=== PATIENT | male | born 1960 | race Caucasian/White ===

== ENCOUNTER 2018-04-30 18:58 | Inpatient (IN) | payer MEDICAID ==
[~2018-04-30] VITALS: Ht 182.9 cm; Wt 71.8 kg
--- NOTE | ~2018-04-30 | MORECARE ---
CASE MANAGEMENT DISCHARGE SUMMARY PATIENT: MEHNZA LOVELACE JR UNIT: [id number] ADM DATE: 05/01/18 AGE: 57 : 60 SEX: M ROOM/BED: D.8923 AUTHOR: JULES,DOC PHYSICIAN: REFERRING PHYSICIAN: ALEXI LINDSAY MD DATE OF SERVICE: 05/05/18 Discharge Plan Patient Name: MEHNAZ LOVELACE Facility: [facility]:[place] : 1960 Planned Disposition: Home Anticipated Discharge Date: 05/05/18 Discharge Date: Expected LOS: 4 Initial Reviewer: [email or web address] Initial Review Date: 05/05/2018 Generated: 05/05/18 4:22 pm Comments DCP- Discharge Planning Updated by [id number]: Dwain Wiseman on 05/05/18 2:[address] Patient Name: MEHNAZ LOVELACE Admission Status: ER Accout number: [id number] Admission Date: 05-01-2018 : 1960 Admission Diagnosis:CUTANEOUS ABSCESS OF RIGHT FOOT Attending: ALEXI LINDSAY Current LOS: 4 Anticipated DC Date: 05-05-2018 Planned Disposition: Home Primary Insurance: MEDICAID [place] Discharge Planning Comments: CM RECEIVED DISCHARGE ORDERS, MET WITH PT IN ROOM TO DISCUSS DISCHARGE PLANNING AND NEEDS. PT REPORTS LIVING AT HOME INDEPENDENTLY AND ALONE. PT REPORTS LIVING ON LARGE ACERAGE IN A CAM[place] WITH NO ELECTRICITY OR RUNNING WATER. PT USES GAS FOR COOKING AND HAS WATER HAULED IN. PT HAS LIVED LIKE THIS FOR THE PAST 7 YEARS. PT HAS NO CAR AND EITHER WALKS OR HAS FRIENDS HE ASKS FOR HELP WITH TRANSPORTATION. PT USES MEDICAID TRANSPORTATION SERVICES FOR APPOINTMENTS WITH DOCTORS NEEDED. PT HAS [place] WITH NO MEDICAL EQUIPMENT AND NO OUTSIDE SERVICES ASSISTING IN THE HOME. CM DISCUSSED AVAILABILITY OF HOME HEALTH, REHAB SERVICES AND MEDICAL EQUIPMENT. PT DENIES DISCHARGE NEEDS, REPORTS HE NEED FOR CM TO ARRANGE MEDICAID TRANSPORTATION FOR DISCHARGE HOME. PT REPORTS ABILITY TO CARE FOR HIS WOUND HIMSELF AND CAN CALL MEDICAID BUS FOR FOLLOW UP APPOINTMENTS. BEDSIDE NURSE AND JEWELRY DRILLING MACHINE OPERATOR NURSE NOTIFIED. BEDSIDE NURSE NOTIFIED CM THAT PT IS READY TO DISCHARGE HOME, CM CALLED MEDICAID TRANSPORTATION, , SPOKE TO LUCIANA, SCHEDULED RAILROAD CAR LETTERER TODAY AT HOSPITAL, WILL TAKE PT TO [facility] AND THEN HOME, CONFIRMATION # [id number]. PT NOTIFIED, DENIES NEEDS. MEDICAID BUS TO CALL NURSES STATION WHEN DOWNSTAIRS TO RAILROAD CAR LETTERER PT TODAY. Business Integration Analyst: Dwain Ivone DCPIA - Discharge Planning Initial Assessment Updated by [email or web address]: Dwain Wiseman on 05/05/18 3:05 pm * Is the patient Alert and Oriented? Yes * How many steps to enter\exit or inside your home? * PCP NONE PATIENT REFUSED HEALTY CONNECTIONS INFORMATION STATING HE IS WORKING TO GET INTO THE [facility] IN [place]. * Pharmacy [facility] * Preadmission Environment Home Alone * ADLs Independent * Equipment Cane * Other Equipment NO MEDICAL EQUIPMENT PROVIDER PREFERENCE * List name and contact numbers for known caregivers / representatives who currently or will assist patient after discharge: CARLO ESTRADA, FRIEND, PHONE UNKNOWN * Verbal permission to speak to the caregivers and representatives has been obtained from the patient. N/A * Community resources currently utilized None * Please name any agencies selected above. NONE * Additional services required to return to the preadmission environment? No * Can the patient safely return to the preadmission environment? Yes * Has this patient been hospitalized within the prior 30 days at any hospital? No Last DP export: 05/05/18 2:06 Patient Name: MEHNAZ LOVELACE Page [phone] at 1522 All edits/amendments must be made on the electronic document DICTATION DATE: 05/05/181521 INFRASTRUCTURE ADMINISTRATOR: APOLINAR 05/05/181521 RPT#: [id number] DC DATE: STATUS: ADM IN [facility] [address] [place] [address] END OF REPORT
--- NOTE | ~2018-04-30 | MORECARE ---
CASE MANAGEMENT DISCHARGE SUMMARY PATIENT: MEHNAZ LOVELACE JR UNIT: [id number] ADM DATE: 05/01/18 AGE: 57 : 60 SEX: M ROOM/BED: D.2113 AUTHOR: MAN VICENTE PHYSICIAN: REFERRING PHYSICIAN: ALEXI LINDSAY MD DATE OF SERVICE: 05/05/18 Discharge Plan Patient Name: MEHNAZ [facility]OVELACE [facility] [facility] 1960 Planned Disposition: Home Anticipated Discharge Date: 05/05/18 Discharge Date: Expected LOS: 4 Initial Reviewer: [email or web address] Initial Review Date: 05/05/2018 Generated: 05/05/18 4:06 pm DCPIA - Discharge Planning Initial Assessment Updated by [email or web address]: Dwain Wiseman on 05/05/18 3:05 pm * Is the patient Alert and Oriented? Yes * How many steps to enter\exit or inside your home? * PCP NONE PATIENT REFUSED HEALTY CONNECTIONS INFORMATION STATING HE IS WORKING TO GET INTO THE [facility] IN [place]. * Pharmacy [facility] * Preadmission Environment Home Alone * ADLs Independent * Equipment Cane * Other Equipment NO MEDICAL EQUIPMENT PROVIDER PREFERENCE * List name and contact numbers for known caregivers / representatives who currently or will assist patient after discharge: CARLO ESTRADA, FRIEND, PHONE UNKNOWN * Verbal permission to speak to the caregivers and representatives has been obtained from the patient. N/A * Community resources currently utilized None * Please name any agencies selected above. NONE * Additional services required to return to the preadmission environment? No * Can the patient safely return to the preadmission environment? Yes * Has this patient been hospitalized within the prior 30 days at any hospital? No Patient Name: MEHNAZ LOVELACE Page [phone] at 1506 All edits/amendments must be made on the electronic document DICTATION DATE: 05/05/18 1505 CLINICAL APPLICATION MANAGER: APOLINAR 05/05/18 1505 RPT#: [id number] DC DATE: STATUS: ADM IN [facility] [address] [place] [address] END OF REPORT
[2018-04-30 19:39] LABS: BASOPHILS 0.3 % (0-2); EOSINOPHILS 0.1 % (0-7); HEMATOCRIT 39.6 % (42.0-54.0); HEMOGLOBIN 13.3 g/dL (13.5-17.5); IMMATURE GRANULOCYTES 0.2 % (0-5); LYMPHOCYTES 12.4 % (15-50); MCH 30.6 pg (26.0-34.0); MCHC 33.6 g/dL (31.0-37.0); MCV 91.2 fL (80.0-100.0); MEAN PLATELET VOLUME 9.6 fL (7.4-10.4); MONOCYTES 10.6 % (2-11); NEUTROPHILS 76.4 % (40-80); PLATELET COUNT 252 10x3/uL (130-400); RBC 4.34 10x6/uL (4.20-6.10); RDW 13.7 % (11.5-14.5); WBC 10.5 10x3/uL (4.8-10.8)
[2018-04-30 19:53] LABS: ALKALINE PHOSPHATASE 89 U/L (46-116); ALT (SGPT) 21 U/L (10-68); BILIRUBIN - TOTAL 0.29 mg/dL (0.2-1.3); CALC OSMOLALITY 274 mosm/kg (275-300); CALCIUM 8.8 mg/dL (8.5-10.1); CARBON DIOXIDE 24.7 mmol/L (21.0-32.0); CHLORIDE - SERUM 100 mmol/L (98-107); CREATININE - SERUM 0.9 mg/dL (0.6-1.3); GLUCOSE 128 mg/dL (74-106); POTASSIUM - SERUM 3.7 mmol/L (3.5-5.1); SODIUM 135 mmol/L (136-145); UREA NITROGEN 20 mg/dL (7-18); eGFR NON AFRICAN AMERICAN > 90 mL/min (90-120)
[2018-04-30 20:14] LABS: APPEARANCE CLEAR (CLEAR); BACTERIA NONE SEEN /hpf (NONE SEEN); BILIRUBIN NEGATIVE (NEGATIVE); COLOR YELLOW (YELLOW); EPITHELIAL CELLS NSEEN /hpf (0-5); GLUCOSE NEGATIVE (NEGATIVE); KETONE NEGATIVE (NEGATIVE); NITRITE NEGATIVE (NEGATIVE); PROTEIN NEGATIVE (NEGATIVE); RED CELLS - URINE NONE SEEN /hpf (0-5); WHITE CELLS - URINE NSEEN /hpf (0-5)
[2018-04-30 21:57] VITALS: BP 136/81
[2018-05-01 03:00] VITALS: BP 141/72
[2018-05-01 03:09] VITALS: BMI 21.7
[2018-05-01 04:00] VITALS: BP 131/81
[2018-05-01 08:56] VITALS: BP 153/104
[2018-05-01 11:00] VITALS: BP 139/89
[2018-05-01 13:23] VITALS: BMI 21.7
[2018-05-01 14:04] VITALS: Ht 182.9 cm; Wt 71.8 kg
[2018-05-01 15:10] LABS: % SATURATION 7 % (15-55); IRON 17 ug/dl (35-150); TOTAL IRON BIND CAPACITY 226 ug/dl (260-445); UNSAT IRON BIND CAPACITY 209 ug/dl (150-375)
[2018-05-01 16:52] LABS: UDS - AMPHET POSITIVE QUAL (NEGATIVE); UDS - BARB NEGATIVE QUAL (NEGATIVE); UDS - BENZO NEGATIVE QUAL (NEGATIVE); UDS - COCAINE NEGATIVE QUAL (NEGATIVE); UDS - OPIATE POSITIVE QUAL (NEGATIVE); UDS - PCP NEGATIVE QUAL (NEGATIVE); UDS - THC NEGATIVE QUAL (NEGATIVE)
[2018-05-01 21:22] VITALS: BP 139/92
[2018-05-02 02:11] VITALS: BP 147/81
[2018-05-02 05:21] LABS: BASOPHILS 0.6 % (0-2); EOSINOPHILS 4.1 % (0-7); HEMATOCRIT 41.3 % (42.0-54.0); HEMOGLOBIN 13.7 g/dL (13.5-17.5); IMMATURE GRANULOCYTES 0.2 % (0-5); LYMPHOCYTES 28.2 % (15-50); MCH 30.6 pg (26.0-34.0); MCHC 33.2 g/dL (31.0-37.0); MCV 92.2 fL (80.0-100.0); MEAN PLATELET VOLUME 9.6 fL (7.4-10.4); MONOCYTES 19.8 % (2-11); NEUTROPHILS 47.1 % (40-80); PLATELET COUNT 237 10x3/uL (130-400); RBC 4.48 10x6/uL (4.20-6.10); RDW 13.9 % (11.5-14.5)
[2018-05-02 05:25] LABS: WBC 6.3 10x3/uL (4.8-10.8)
[2018-05-02 05:28] LABS: CALC OSMOLALITY 276 mosm/kg (275-300); CALCIUM 8.5 mg/dL (8.5-10.1); CARBON DIOXIDE 28.3 mmol/L (21.0-32.0); CHLORIDE - SERUM 103 mmol/L (98-107); CREATININE - SERUM 0.8 mg/dL (0.6-1.3); GLUCOSE 129 mg/dL (74-106); POTASSIUM - SERUM 4.2 mmol/L (3.5-5.1); SODIUM 138 mmol/L (136-145); eGFR NON AFRICAN AMERICAN > 90 mL/min (90-120)
[2018-05-02 05:29] LABS: UREA NITROGEN 10 mg/dL (7-18)
[2018-05-02 06:40] VITALS: BP 149/92
[2018-05-02 08:42] VITALS: BP 150/75
[2018-05-02 13:12] VITALS: BP 149/75
[2018-05-02 17:14] VITALS: BP 149/72
[2018-05-02 20:30] VITALS: BP 164/91
[2018-05-03 00:30] VITALS: BP 138/81
[2018-05-03 04:30] VITALS: BP 130/76
[2018-05-03 06:01] LABS: CALC OSMOLALITY 274 mosm/kg (275-300); CALCIUM 8.5 mg/dL (8.5-10.1); CARBON DIOXIDE 31.8 mmol/L (21.0-32.0); CHLORIDE - SERUM 103 mmol/L (98-107); CREATININE - SERUM 0.7 mg/dL (0.6-1.3); GLUCOSE 91 mg/dL (74-106); POTASSIUM - SERUM 4.2 mmol/L (3.5-5.1); SODIUM 138 mmol/L (136-145); UREA NITROGEN 11 mg/dL (7-18); eGFR NON AFRICAN AMERICAN > 90 mL/min (90-120)
[2018-05-03 06:07] LABS: BASOPHILS 0.9 % (0-2); EOSINOPHILS 4.7 % (0-7); HEMATOCRIT 39.3 % (42.0-54.0); HEMOGLOBIN 13.1 g/dL (13.5-17.5); IMMATURE GRANULOCYTES 0.2 % (0-5); LYMPHOCYTES 43.6 % (15-50); MCH 30.5 pg (26.0-34.0); MCHC 33.3 g/dL (31.0-37.0); MCV 91.6 fL (80.0-100.0); MEAN PLATELET VOLUME 9.9 fL (7.4-10.4); MONOCYTES 18.3 % (2-11); NEUTROPHILS 32.3 % (40-80); PLATELET COUNT 264 10x3/uL (130-400); RBC 4.29 10x6/uL (4.20-6.10); WBC 5.7 10x3/uL (4.8-10.8)
[2018-05-03 07:56] VITALS: BP 136/83
[2018-05-03 11:53] VITALS: BP 120/68
[2018-05-03 16:14] VITALS: BP 114/73
[2018-05-03 21:14] VITALS: BP 128/79
[2018-05-04 01:15] VITALS: BP 110/61
[2018-05-04 04:45] VITALS: BP 120/73
[2018-05-04 05:07] LABS: BASOPHILS 0.7 % (0-2); EOSINOPHILS 4.8 % (0-7); HEMATOCRIT 40.3 % (42.0-54.0); HEMOGLOBIN 13.3 g/dL (13.5-17.5); LYMPHOCYTES 43.5 % (15-50); MCH 30.4 pg (26.0-34.0); MCV 92.2 fL (80.0-100.0); MEAN PLATELET VOLUME 9.7 fL (7.4-10.4); MONOCYTES 15.5 % (2-11); NEUTROPHILS 35.5 % (40-80); PLATELET COUNT 259 10x3/uL (130-400); RBC 4.37 10x6/uL (4.20-6.10); WBC 5.4 10x3/uL (4.8-10.8)
[2018-05-04 05:23] LABS: CALC OSMOLALITY 276 mosm/kg (275-300); CALCIUM 8.5 mg/dL (8.5-10.1); CARBON DIOXIDE 28.9 mmol/L (21.0-32.0); CHLORIDE - SERUM 104 mmol/L (98-107); CREATININE - SERUM 0.6 mg/dL (0.6-1.3); GLUCOSE 103 mg/dL (74-106); POTASSIUM - SERUM 4.5 mmol/L (3.5-5.1); SODIUM 138 mmol/L (136-145); eGFR NON AFRICAN AMERICAN > 90 mL/min (90-120)
[2018-05-04 05:25] LABS: UREA NITROGEN 15 mg/dL (7-18)
[2018-05-04 08:47] VITALS: BP 149/80
[2018-05-04 11:34] VITALS: BP 135/79
[2018-05-04 15:53] VITALS: BP 134/67
[2018-05-04 21:46] VITALS: BP 127/73
[2018-05-05 02:34] VITALS: BP 125/67
[2018-05-05 05:11] LABS: BASOPHILS 0.6 % (0-2); EOSINOPHILS 4.3 % (0-7); HEMATOCRIT 39.8 % (42.0-54.0); HEMOGLOBIN 13.1 g/dL (13.5-17.5); IMMATURE GRANULOCYTES 0.2 % (0-5); LYMPHOCYTES 35.3 % (15-50); MCH 30.5 pg (26.0-34.0); MCHC 32.9 g/dL (31.0-37.0); MCV 92.8 fL (80.0-100.0); MEAN PLATELET VOLUME 9.9 fL (7.4-10.4); MONOCYTES 14.1 % (2-11); NEUTROPHILS 45.5 % (40-80); PLATELET COUNT 272 10x3/uL (130-400); RBC 4.29 10x6/uL (4.20-6.10); RDW 14.1 % (11.5-14.5); WBC 6.5 10x3/uL (4.8-10.8)
[2018-05-05 05:25] LABS: CALCIUM 8.3 mg/dL (8.5-10.1); CARBON DIOXIDE 30.2 mmol/L (21.0-32.0); CHLORIDE - SERUM 104 mmol/L (98-107); GLUCOSE 105 mg/dL (74-106); POTASSIUM - SERUM 4.2 mmol/L (3.5-5.1); SODIUM 139 mmol/L (136-145)
[2018-05-05 05:28] LABS: CALC OSMOLALITY 279 mosm/kg (275-300); CREATININE - SERUM 0.8 mg/dL (0.6-1.3); UREA NITROGEN 19 mg/dL (7-18); eGFR NON AFRICAN AMERICAN > 90 mL/min (90-120)
[2018-05-05 06:34] VITALS: BP 137/80
[2018-05-05 08:20] VITALS: BP 131/78
[2018-05-05] MEDS ORDERED: AUGMENTIN 875-11 TAB PO (09:35)
[2018-05-05] MEDS ORDERED: DOXYCYCLINE HY100 M2 PO (09:35)
[2018-05-05 12:23] VITALS: BP 138/69
== END 2018-05-05 16:19 | disposition home or self-care (01) | DRG 603 ==
LOC: D.ER 18:58 → D.M2 05-01 01:50 → D.EDHOLD 05-01 01:50 → D.M2 05-01 02:04
PROVIDERS: Family Medicine; Internal Medicine Nephrology
DX: L03.115 Cellulitis of right lower limb (principal); F17.213 Nicotine dependence, cigarettes, with withdrawal; N17.9 Acute kidney failure, unspecified; B95.62 Methicillin resistant Staphylococcus aureus infection as the cause of diseases classified elsewhere; D64.9 Anemia, unspecified; B96.4 Proteus (mirabilis) (morganii) as the cause of diseases classified elsewhere; B95.1 Streptococcus, group B, as the cause of diseases classified elsewhere

== ENCOUNTER 2018-09-04 13:02 | Inpatient (IN) | payer MEDICAID ==
[~2018-09-04] VITALS: Ht 182.9 cm; Wt 72.6 kg
[~2018-09-04 13:02] MED LIST: AUGMENTIN 875-11 TAB PO; DOXYCYCLINE HY100 M2 PO
[2018-09-04 14:23] LABS: APTT 31.1 SECONDS (22.8-39.4); INR 1.02 (0.85-1.17); PROTIME 12.9 SECONDS (11.6-15.0)
[2018-09-04 14:32] LABS: ALBUMIN 2.5 g/dL (3.4-5.0); ALKALINE PHOSPHATASE 120 U/L (46-116); ALT (SGPT) 16 U/L (10-68); BILIRUBIN - TOTAL 0.07 mg/dL (0.2-1.3); CALC OSMOLALITY 279 mosm/kg (275-300); CALCIUM 8.4 mg/dL (8.5-10.1); CARBON DIOXIDE 31.2 mmol/L (21.0-32.0); CHLORIDE - SERUM 101 mmol/L (98-107); CREATININE - SERUM 0.8 mg/dL (0.6-1.3); GLUCOSE 105 mg/dL (74-106); POTASSIUM - SERUM 4.6 mmol/L (3.5-5.1); PROTEIN - SERUM 7.3 g/dL (6.4-8.2); SODIUM 139 mmol/L (136-145); UREA NITROGEN 18 mg/dL (7-18); eGFR NON AFRICAN AMERICAN > 90 mL/min (90-120)
[2018-09-04 14:33] LABS: BASOPHILS 0.4 % (0-2); EOSINOPHILS 1.5 % (0-7); HEMATOCRIT 41.9 % (42.0-54.0); HEMOGLOBIN 13.6 g/dL (13.5-17.5); IMMATURE GRANULOCYTES 0.2 % (0-5); LYMPHOCYTES 16.8 % (15-50); MCH 29.9 pg (26.0-34.0); MCHC 32.5 g/dL (31.0-37.0); MCV 92.1 fL (80.0-100.0); MEAN PLATELET VOLUME 9.2 fL (7.4-10.4); MONOCYTES 12.7 % (2-11); NEUTROPHILS 68.4 % (40-80); PLATELET COUNT 488 10x3/uL (130-400); RBC 4.55 10x6/uL (4.20-6.10); RDW 14.1 % (11.5-14.5)
[2018-09-04 14:37] LABS: CKMB 0.8 U/L (0.0-3.6); CREATINE KINASE 36 UL (21-232); TROPONIN-I 0.016 ng/mL (0.000-0.060)
--- NOTE | 2018-09-04 17:05 | MORECARE ---
CASE MANAGEMENT DISCHARGE SUMMARY PATIENT: MEHNAZ LOVELACE JR UNIT: [id number] ADM DATE: 09/04/18 AGE: 58 : 60 SEX: M ROOM/BED: D.2229 AUTHOR: MAN VICENTE PHYSICIAN: REFERRING PHYSICIAN: ALEXI LINDSAY MD DATE OF SERVICE: 09/04/18 Discharge Plan Patient Name: MEHNAZ LOVELACE [facility] [facility] 1960 Planned Disposition: Home Anticipated Discharge Date: 09/06/18 Discharge Date: Expected LOS: 2 Initial Reviewer: [email or web address] Initial Review Date: 09/04/2018 Generated: 09/04/18 6:05 pm DCPIA - Discharge Planning Initial Assessment Updated by [email or web address]: Yin Molina on 09/04/18 5:00 pm * Is the patient Alert and Oriented? Yes * How many steps to enter\exit or inside your home? three * PCP Don't have one * Pharmacy [facility] on [address] * Preadmission Environment Home Alone * ADLs Independent * Equipment None * List name and contact numbers for known caregivers / representatives who currently or will assist patient after discharge: Silvana Orr - [facility] [phone] * Verbal permission to speak to the caregivers and representatives has been obtained from the patient. Yes * Community resources currently utilized None * Additional services required to return to the preadmission environment? No * Can the patient safely return to the preadmission environment? Yes * Has this patient been hospitalized within the prior 30 days at any hospital? No Patient Name: MEHNAZ LOVELACE Page [phone] at 1705 All edits/amendments must be made on the electronic document DICTATION DATE: 09/04/181704 TECHNOLOGY SALES CONSULTANT: APOLINAR 09/04/181704 RPT#: [id number] DC DATE: STATUS: ADM IN [facility] [address] [place] [address] END OF REPORT
--- NOTE | 2018-09-04 17:14 | MORECARE ---
CASE MANAGEMENT DISCHARGE SUMMARY PATIENT: MEHNAZ LOVELACE JR UNIT: [id number] ADM DATE: 09/04/18 AGE: 58 : 60 SEX: M ROOM/BED: D.2229 AUTHOR: JULES,DOC PHYSICIAN: REFERRING PHYSICIAN: ALEXI LINDSAY MD DATE OF SERVICE: 09/04/18 Discharge Plan Patient Name: MEHNAZ LOVELACE Facility: [facility]:[place] : 1960 Planned Disposition: Home Anticipated Discharge Date: 09/06/18 Discharge Date: Expected LOS: 2 Initial Reviewer: [email or web address] Initial Review Date: 09/04/2018 Generated: 09/04/18 6:14 pm DCP- Discharge Planning Updated by [email or web address]: Yin Molina on 09/04/18 4:[address] Patient Name: MEHNAZ LOVELACE Admission Status: ER Accout number: [id number] Admission Date: 09-04-2018 : 1960 Admission Diagnosis: Attending: ALEXI LINDSAY Current LOS: 1 Anticipated DC Date: 09-06-2018 Planned Disposition: Home Primary Insurance: MEDICAID [place] Discharge Planning Comments: CM met with patient to complete initial dc planning assessment. CM educated patient on the CM role and verbal consent given by patient to complete assessment. Patient lives at home alone and reports he is independent in his care at home. At discharge patient plans to return home and feels this is a safe discharge. CM discussed availability of home health, rehab services, and medical equipment. Patient is unsure of what discharge needs he will have at this time. CM will continue to follow and will assist as needed with dc plans/needs. Java Front End Web Developer: Yin Molina RN, [facility] DCPIA - Discharge Planning Initial Assessment Updated by [email or web address]: Yin Molina on 09/04/18 5:00 pm * Is the patient Alert and Oriented? Yes * How many steps to enter\exit or inside your home? three * PCP Don't have one * Pharmacy [facility] on [address]/[place] * Preadmission Environment Home Alone * ADLs Independent * Equipment None * List name and contact numbers for known caregivers / representatives who currently or will assist patient after discharge: Silvana Orr - [facility] [phone] * Verbal permission to speak to the caregivers and representatives has been obtained from the patient. Yes * Community resources currently utilized None * Additional services required to return to the preadmission environment? No * Can the patient safely return to the preadmission environment? Yes * Has this patient been hospitalized within the prior 30 days at any hospital? No Last DP export: 09/04/18 4:05 p Patient Name: MEHNAZ LOVELACE Page [phone] at 1714 All edits/amendments must be made on the electronic document DICTATION DATE: 09/04/181713 CANE LOADER: APOLINAR 09/04/181713 RPT#: [id number] DC DATE: STATUS: ADM IN [facility] [address] [place] [address] END OF REPORT
[2018-09-04 17:37] LABS: APPEARANCE CLEAR (CLEAR); BILIRUBIN NEGATIVE (NEGATIVE); COLOR YELLOW (YELLOW); GLUCOSE NEGATIVE (NEGATIVE); KETONE NEGATIVE (NEGATIVE); NITRITE NEGATIVE (NEGATIVE); PROTEIN NEGATIVE (NEGATIVE); SPECIFIC GRAVITY 1.015 (1.005-1.020); UROBILINOGEN NORMAL (NORMAL)
[2018-09-04 18:34] VITALS: BP 157/84; BMI 21.7
--- NOTE | 2018-09-04 19:15 | NUR ---
RECEIVED CARE FROM DAY NURSE. LYING IN BED. REPORTS NO NEEDS AT THIS TIME. CALL LIGHT AT SIDE. IV INFUSING PER ORDER TO LEFT FA. RIGHT FA SL.
[2018-09-04 20:00] VITALS: BP 138/80
--- NOTE | 2018-09-05 00:08 | NUR ---
WOUND CULTURE DONE AT THIS TIME. WOUND SPRAYED WITH WOUND CLEANSER, IODINE APPLIED, AND COVERED WITH 2X2 AND KURLIX.
[2018-09-05 02:00] VITALS: BP 125/88
--- NOTE | 2018-09-05 03:00 | NUR ---
I have reviewed this patient and I concur with the Shift Assessment completed by the Licensed Practical Nurse today this shift.
[2018-09-05 04:00] VITALS: BP 144/78
[2018-09-05 05:47] LABS: BASOPHILS 0.6 % (0-2); EOSINOPHILS 2.7 % (0-7); HEMATOCRIT 37.3 % (42.0-54.0); IMMATURE GRANULOCYTES 0.3 % (0-5); MCH 29.6 pg (26.0-34.0); MCHC 32.2 g/dL (31.0-37.0); MCV 92.1 fL (80.0-100.0); MEAN PLATELET VOLUME 9.1 fL (7.4-10.4); MONOCYTES 12.7 % (2-11); NEUTROPHILS 52.7 % (40-80); PLATELET COUNT 460 10x3/uL (130-400); RBC 4.05 10x6/uL (4.20-6.10); RDW 14.1 % (11.5-14.5)
[2018-09-05 05:49] LABS: WBC 7.1 10x3/uL (4.8-10.8)
[2018-09-05 06:11] LABS: ALBUMIN 2.1 g/dL (3.4-5.0); ALKALINE PHOSPHATASE 93 U/L (46-116); BILIRUBIN - TOTAL 0.24 mg/dL (0.2-1.3); CALC OSMOLALITY 268 mosm/kg (275-300); CALCIUM 8.3 mg/dL (8.5-10.1); CARBON DIOXIDE 32.7 mmol/L (21.0-32.0); CHLORIDE - SERUM 99 mmol/L (98-107); CREATININE - SERUM 0.8 mg/dL (0.6-1.3); GLUCOSE 102 mg/dL (74-106); POTASSIUM - SERUM 4.3 mmol/L (3.5-5.1); PROTEIN - SERUM 7.2 g/dL (6.4-8.2); SODIUM 134 mmol/L (136-145); UREA NITROGEN 14 mg/dL (7-18); eGFR NON AFRICAN AMERICAN > 90 mL/min (90-120)
[2018-09-05 06:14] LABS: ALT (SGPT) 10 U/L (10-68)
--- NOTE | 2018-09-05 08:21 | NUR ---
PT AAOX4 RESP EVEN AND NONLABORED, PT STATES "I DID NOT SLEEP THAT MUCH LASTNIGHT SO IM TRYING TO CATCH THIS MORNING" CL IN REACH WILL CONTINUE TO MONITOR
[2018-09-05 09:15] VITALS: BP 127/70
[2018-09-05 10:59] VITALS: Ht 182.9 cm; Wt 72.6 kg
[2018-09-05 14:30] VITALS: BP 138/82
[2018-09-05 16:00] VITALS: BP 128/75
--- NOTE | 2018-09-05 18:05 | NUR ---
I have reviewed this patient and I concur with the Shift Assessment completed by the Licensed Practical Nurse today this shift.
[2018-09-05 19:27] LABS: UDS - AMPHET NEGATIVE QUAL (NEGATIVE); UDS - BARB NEGATIVE QUAL (NEGATIVE); UDS - BENZO NEGATIVE QUAL (NEGATIVE); UDS - COCAINE NEGATIVE QUAL (NEGATIVE); UDS - OPIATE POSITIVE QUAL (NEGATIVE); UDS - PCP NEGATIVE QUAL (NEGATIVE); UDS - THC NEGATIVE QUAL (NEGATIVE)
[2018-09-06 00:19] VITALS: BP 109/74
--- NOTE | 2018-09-06 00:37 | NUR ---
ALERT AND ORIENTIATED RESTIN GIN BED, WASHHOUSE WORKER IN USE FOR PAIN CONTROL, IV INFUSING WITHOUT DIFFICULTY, DRESSINGS INTACT TO BILATERAL FEET, TOES WARM TO TOUCH FEET APEAR CYNOIC IN COLOR, NO C/O OR REQUEST AT THIS TIME CALL LIGHT IN REACH
[2018-09-06 04:00] VITALS: BP 124/70
[2018-09-06 05:42] LABS: BASOPHILS 0.5 % (0-2); EOSINOPHILS 2.5 % (0-7); HEMATOCRIT 39.4 % (42.0-54.0); HEMOGLOBIN 12.5 g/dL (13.5-17.5); IMMATURE GRANULOCYTES 0.1 % (0-5); MCH 29.1 pg (26.0-34.0); MCHC 31.7 g/dL (31.0-37.0); MCV 91.6 fL (80.0-100.0); MEAN PLATELET VOLUME 9.3 fL (7.4-10.4); MONOCYTES 11.7 % (2-11); NEUTROPHILS 64.2 % (40-80); PLATELET COUNT 479 10x3/uL (130-400); RDW 14.1 % (11.5-14.5); WBC 8.4 10x3/uL (4.8-10.8)
[2018-09-06 05:51] LABS: CALC OSMOLALITY 270 mosm/kg (275-300); CALCIUM 8.4 mg/dL (8.5-10.1); CARBON DIOXIDE 32.5 mmol/L (21.0-32.0); CHLORIDE - SERUM 99 mmol/L (98-107); CREATININE - SERUM 0.7 mg/dL (0.6-1.3); GLUCOSE 114 mg/dL (74-106); POTASSIUM - SERUM 4.1 mmol/L (3.5-5.1); SODIUM 135 mmol/L (136-145); UREA NITROGEN 13 mg/dL (7-18); eGFR NON AFRICAN AMERICAN > 90 mL/min (90-120)
--- NOTE | 2018-09-06 10:49 | NUR ---
ALERT AND ORIENTED.CHROME WORKER AT BEDSIDE WITH REMIVAL OF DIGIT WITH LIDOCAINE USED WITH LOCAL USING STERILE TECHNIQUE. DIGIT SENT TO LAB FOR CYTOLOGY. DRESSINGS INTACT TO BLE. POTATO INSPECTOR MS AT PRESCRIBED DOSE AND IVF AT PRESCRIBED RATE. ENCOURAGED TO USE CALL LIGHT FOR ASSIST.
[2018-09-06 13:10] VITALS: BP 136/79
--- NOTE | 2018-09-06 15:08 | NUR ---
I have reviewed this patient and I concur with the Shift Assessment completed by the Licensed Practical Nurse today this shift.
[2018-09-06 16:31] VITALS: BP 127/82
[2018-09-06 20:00] VITALS: BP 118/62
--- NOTE | 2018-09-06 20:00 | NUR ---
RESTING IN BED ALERT, RADIO INTERFERENCE SUPERVISOR IN USE FOR PAIN CONTROL, DENIES NEEDS AT THIS TIME, CALL LIGHT IN REACH
[2018-09-07 04:00] VITALS: BP 116/61
[2018-09-07 06:54] LABS: BASOPHILS 0.6 % (0-2); EOSINOPHILS 2.8 % (0-7); HEMATOCRIT 40.9 % (42.0-54.0); HEMOGLOBIN 13.3 g/dL (13.5-17.5); IMMATURE GRANULOCYTES 0.2 % (0-5); LYMPHOCYTES 25.4 % (15-50); MCH 29.9 pg (26.0-34.0); MCHC 32.5 g/dL (31.0-37.0); MCV 91.9 fL (80.0-100.0); MEAN PLATELET VOLUME 9.4 fL (7.4-10.4); MONOCYTES 13.6 % (2-11); NEUTROPHILS 57.4 % (40-80); PLATELET COUNT 493 10x3/uL (130-400); RBC 4.45 10x6/uL (4.20-6.10); WBC 8.1 10x3/uL (4.8-10.8)
[2018-09-07 07:05] LABS: CARBON DIOXIDE 33.3 mmol/L (21.0-32.0); CHLORIDE - SERUM 97 mmol/L (98-107); GLUCOSE 98 mg/dL (74-106); POTASSIUM - SERUM 4.3 mmol/L (3.5-5.1); SODIUM 135 mmol/L (136-145)
[2018-09-07 07:12] LABS: CALC OSMOLALITY 271 mosm/kg (275-300); CREATININE - SERUM 0.9 mg/dL (0.6-1.3); UREA NITROGEN 17 mg/dL (7-18)
[2018-09-07 07:13] LABS: eGFR NON AFRICAN AMERICAN > 90 mL/min (90-120)
[2018-09-07 09:31] VITALS: BP 115/68
[2018-09-07 13:00] VITALS: BP 129/77
[2018-09-07 18:57] VITALS: BP 110/69
--- NOTE | 2018-09-07 19:02 | NUR ---
I have reviewed this patient and I concur with the Shift Assessment completed by the Licensed Practical Nurse today this shift.
[2018-09-07 20:00] VITALS: BP 114/69
--- NOTE | 2018-09-08 02:57 | NUR ---
1930) REC'D.IN BED AAO X3. MOHINI WRAP DRESSING DRY AND INTACT.HEELS BRIDGED.TOES VISIBLE.PINK AND WARM.WIGGLES WITHOUT DIFFICULTY.C/O MINIMAL NUMBNESS.WILL CONTINUE TO MONITOR FOR ANY CHGES.IN NEUROVASCULAR STATUS AND FOLLOW CURRENT PLAN OF CARE.
[2018-09-08 04:00] VITALS: BP 121/73
[2018-09-08 05:24] LABS: BASOPHILS 0.8 % (0-2); EOSINOPHILS 3.8 % (0-7); HEMATOCRIT 42.7 % (42.0-54.0); HEMOGLOBIN 13.8 g/dL (13.5-17.5); IMMATURE GRANULOCYTES 0.1 % (0-5); LYMPHOCYTES 24.7 % (15-50); MCH 29.9 pg (26.0-34.0); MCHC 32.3 g/dL (31.0-37.0); MCV 92.4 fL (80.0-100.0); MEAN PLATELET VOLUME 9.4 fL (7.4-10.4); MONOCYTES 16.1 % (2-11); NEUTROPHILS 54.5 % (40-80); PLATELET COUNT 513 10x3/uL (130-400); RBC 4.62 10x6/uL (4.20-6.10); WBC 7.3 10x3/uL (4.8-10.8)
[2018-09-08 05:51] LABS: CALC OSMOLALITY 269 mosm/kg (275-300); CALCIUM 8.7 mg/dL (8.5-10.1); CARBON DIOXIDE 32.8 mmol/L (21.0-32.0); CHLORIDE - SERUM 97 mmol/L (98-107); CREATININE - SERUM 0.9 mg/dL (0.6-1.3); GLUCOSE 87 mg/dL (74-106); POTASSIUM - SERUM 4.2 mmol/L (3.5-5.1); SODIUM 134 mmol/L (136-145); UREA NITROGEN 20 mg/dL (7-18); eGFR NON AFRICAN AMERICAN > 90 mL/min (90-120)
--- NOTE | 2018-09-08 08:06 | NUR ---
PT ALERT X 4. BREATH SOUNDS CLEAR BILAT. IV TO RIGHT FOREARM, SALINE LOCKED. IV TO LEFT FOREARM, PATENT, DRESSING CLEAN DRY AND INTAT. DRESSINGS TO BILAT FEET CLEAN DRY AND INTACT. PT REPORTING PAIN OF 6/10, SERVICE OBSERVER CHIEF IN PLACE, WILL MONITOR. BED LOW, CALL LIGHT IN REACH, NO OTHER NEEDS AT THIS TIME.
--- NOTE | 2018-09-08 08:09 | NUR ---
I have reviewed this patient and I concur with the Shift Assessment completed by the Licensed Practical Nurse today this shift.
[2018-09-08 09:36] VITALS: BP 115/75
--- NOTE | 2018-09-08 10:59 | NUR ---
NUTRITION F/U PT CURRENTLY NPO FOR PROCEDURE. WILL PROVIDE DIET WHEN RESUMED, MONITOR PO INTAKE. RD FOLLOWING
[2018-09-08 15:28] VITALS: BP 115/72
[2018-09-08 20:00] VITALS: BP 130/76
[2018-09-09] VITALS: BP 112/67
[2018-09-09 04:00] VITALS: BP 115/68
[2018-09-09 06:11] LABS: BASOPHILS 0.2 % (0-2); EOSINOPHILS 0.1 % (0-7); HEMATOCRIT 36.7 % (42.0-54.0); HEMOGLOBIN 11.9 g/dL (13.5-17.5); IMMATURE GRANULOCYTES 0.1 % (0-5); LYMPHOCYTES 14.4 % (15-50); MCH 29.5 pg (26.0-34.0); MCHC 32.4 g/dL (31.0-37.0); MCV 91.1 fL (80.0-100.0); MEAN PLATELET VOLUME 9.4 fL (7.4-10.4); MONOCYTES 8.8 % (2-11); NEUTROPHILS 76.4 % (40-80); PLATELET COUNT 452 10x3/uL (130-400); RBC 4.03 10x6/uL (4.20-6.10); RDW 13.7 % (11.5-14.5); WBC 8.3 10x3/uL (4.8-10.8)
[2018-09-09 06:30] LABS: CALC OSMOLALITY 276 mosm/kg (275-300); CALCIUM 8.9 mg/dL (8.5-10.1); CHLORIDE - SERUM 99 mmol/L (98-107); CREATININE - SERUM 0.8 mg/dL (0.6-1.3); GLUCOSE 128 mg/dL (74-106); POTASSIUM - SERUM 4.4 mmol/L (3.5-5.1); SODIUM 136 mmol/L (136-145); UREA NITROGEN 20 mg/dL (7-18); eGFR NON AFRICAN AMERICAN > 90 mL/min (90-120)
[2018-09-09 08:50] VITALS: BP 138/84
--- NOTE | 2018-09-09 13:32 | NUR ---
I have reviewed this patient and I concur with the Shift Assessment completed by the Licensed Practical Nurse today this shift.
[2018-09-09 13:53] VITALS: BP 129/68
--- NOTE | 2018-09-09 14:08 | NUR ---
A/OX4. RESTING QUIETLY IN BED, EYES CLOSED LIGHTS OFF. RESPIRATIONS EVEN AN UNLABORED. NO SIGNS OF DISTRESS NOTED. COMPLAINTS OF LEFT FOOT PAIN ACROSS ANKLE. UNWRAPPED CARLOS WRAP DOWN TO BOOT. RELIEVED PAIN AT THIS TIME. PT HAS MORPHINE ORGANIZATION DEVELOPMENT CONSULTANT TO L FA, PATENT NON-TENDER. NO OTHER COMPLAINTS VOICED AT THIS TIME. CALL LIGHT AND BEDSIDE TABLE IN REACH. ROOM FREE OF CLUTTER. BED IN LOWEST POSITION. WILL CONTINUE TO MONITOR.
--- NOTE | 2018-09-09 14:41 | MORECARE ---
CASE MANAGEMENT DISCHARGE SUMMARY PATIENT: MEHNAZ LOVELACE JR UNIT: [id number] ADM DATE: 09/04/18 AGE: 58 : 60 SEX: M ROOM/BED: D.2229 AUTHOR: MAN VICENTE PHYSICIAN: REFERRING PHYSICIAN: ALEXI LINDSAY MD DATE OF SERVICE: 09/09/18 Discharge Plan Patient Name: MEHNAZ LOVELACE Facility: [facility]:[place] : 1960 Planned Disposition: Home Anticipated Discharge Date: 09/06/18 Discharge Date: Expected LOS: 2 Initial Reviewer: [email or web address] Initial Review Date: 09/04/2018 Generated: 09/09/18 3:41 pm Comments DCP- Discharge Planning Updated by [email or web address]: Millie Barroso on 09/09/18 1:[address] Patient Name: MEHNAZ LOVELACE Encounter No: [id number] : 1960 Primary Insurance: MEDICAID [place] Anticipated DC Date: 09-06-2018 Planned Disposition: Home External Planned Provider: : DCP follow-up note: Patient and family in agreement with discharge plan. No changes to plan. He declines home health. He states he can change his own bandage. He states he needs to ride the [employer] bus home. [facility] and appointment was made for 1400 pickle sorter. Confirmation number [id number]. I asked if he had a way to get his prescriptions and he said he did. Case management will follow and assist as needed. Millie Barroso DCP- Discharge Planning Updated by [id number]: Yin Molina on 09/04/18 4:[address] Patient Name: MEHNAZ LOVELACE Admission Status: ER Accout number: [id number] Admission Date: 09-04-2018 : 1960 Admission Diagnosis: Attending: ALEXI LINDSAY Current LOS: 1 Anticipated DC Date: 09-06-2018 Planned Disposition: Home Primary Insurance: MEDICAID [place] Discharge Planning Comments: CM met with patient to complete initial dc planning assessment. CM educated patient on the CM role and verbal consent given by patient to complete assessment. Patient lives at home alone and reports he is independent in his care at home. At discharge patient plans to return home and feels this is a safe discharge. CM discussed availability of home health, rehab services, and medical equipment. Patient is unsure of what discharge needs he will have at this time. CM will continue to follow and will assist as needed with dc plans/needs. Forging Operator: Yin Molina RN, [facility] DCPIA - Discharge Planning Initial Assessment Updated by [email or web address]: Yin Molina on 09/04/18 5:00 pm * Is the patient Alert and Oriented? Yes * How many steps to enter\exit or inside your home? three * PCP Don't have one * Pharmacy [facility] on [address] [facility] * Preadmission Environment Home Alone * ADLs Independent * Equipment None * List name and contact numbers for known caregivers / representatives who currently or will assist patient after discharge: Silvana Orr - [facility] [phone] * Verbal permission to speak to the caregivers and representatives has been obtained from the patient. Yes * Community resources currently utilized None * Additional services required to return to the preadmission environment? No * Can the patient safely return to the preadmission environment? Yes * Has this patient been hospitalized within the prior 30 days at any hospital? No Last DP export: 09/04/18 4:14 p Patient Name: MEHNAZ LOVELACE Page [phone] at 1441 All edits/amendments must be made on the electronic document DICTATION DATE: 09/09/181439 TREE PULLER: APOLINAR 09/09/181439 RPT#: [id number] DC DATE: STATUS: ADM IN [facility] [address] [place] [address] END OF REPORT
[2018-09-09 16:42] VITALS: BP 134/68
[2018-09-09 20:00] VITALS: BP 125/72
[2018-09-10 04:00] VITALS: BP 113/67
[2018-09-10 04:55] LABS: BASOPHILS 0.8 % (0-2); EOSINOPHILS 2.1 % (0-7); HEMATOCRIT 37.8 % (42.0-54.0); HEMOGLOBIN 12.5 g/dL (13.5-17.5); LYMPHOCYTES 25.8 % (15-50); MCH 29.8 pg (26.0-34.0); MCHC 33.1 g/dL (31.0-37.0); MCV 90.2 fL (80.0-100.0); MEAN PLATELET VOLUME 9.5 fL (7.4-10.4); MONOCYTES 8.5 % (2-11); NEUTROPHILS 62.8 % (40-80); PLATELET COUNT 428 10x3/uL (130-400); RBC 4.19 10x6/uL (4.20-6.10); RDW 13.8 % (11.5-14.5)
[2018-09-10 05:00] LABS: CALC OSMOLALITY 273 mosm/kg (275-300); CALCIUM 8.4 mg/dL (8.5-10.1); CARBON DIOXIDE 31.6 mmol/L (21.0-32.0); CHLORIDE - SERUM 101 mmol/L (98-107); CREATININE - SERUM 0.8 mg/dL (0.6-1.3); GLUCOSE 110 mg/dL (74-106); SODIUM 136 mmol/L (136-145); UREA NITROGEN 16 mg/dL (7-18); eGFR NON AFRICAN AMERICAN > 90 mL/min (90-120)
[2018-09-10] MEDS ORDERED: LACRI-LUBE S.O3.5 G1 LEFT EYE (09:33)
[2018-09-10] MEDS ORDERED: COLACE100 MG PO (09:33)
[2018-09-10] MEDS ORDERED: FLORAJEN3 CAPS460 MG PO (09:33)
[2018-09-10] MEDS ORDERED: BACTRIM 400-801 TAB PO (09:37)
[2018-09-10] MEDS ORDERED: NORCO-10 PO (09:37)
[2018-09-10] MEDS ORDERED: Nicoderm [PBKC] TRANSDERM (09:37)
[2018-09-10] MEDS ORDERED: LEVAQUIN750 MG PO (09:37)
[2018-09-10 10:11] VITALS: BP 146/78
--- NOTE | 2018-09-10 10:44 | MORECARE ---
CASE MANAGEMENT DISCHARGE SUMMARY PATIENT: MEHNAZ LOVELACE JR UNIT: [id number] ADM DATE: 09/04/18 AGE: 58 : 60 SEX: M ROOM/BED: D.2229 AUTHOR: MAN VICENTE PHYSICIAN: REFERRING PHYSICIAN: ALEXI LINDSAY MD DATE OF SERVICE: 09/10/18 Discharge Plan Patient Name: MEHNAZ LOVELACE Facility: [facility]:[place] : 1960 Planned Disposition: Home Anticipated Discharge Date: 09/06/18 Discharge Date: Expected LOS: 2 Initial Reviewer: [email or web address] Initial Review Date: 09/04/2018 Generated: 09/10/18 11:44 am Comments DCP- Discharge Planning Updated by [email or web address]: Millie Barroso on 09/10/18 9:[address] Received order for discharge. He declines home health. Dr. Cheung will change dressing on first f/u appointment. Ceci will give dressing supplies for when he is able to change his dressing. [facility] bus to picker tender helper at 1400. CM will continue to follow and assist with discharge planning/needs. DCP- Discharge Planning Updated by [email or web address]: Millie Barroso on 09/09/18 1:[address] Patient Name: MEHNAZ LOVELACE Encounter No: [id number] : 1960 Primary Insurance: MEDICAID [place] Anticipated DC Date: 09-06-2018 Planned Disposition: Home External Planned Provider: : DCP follow-up note: Patient and family in agreement with discharge plan. No changes to plan. He declines home health. He states he can change his own bandage. He states he needs to ride the [employer] bus home. I called and spoke to Radha at [facility] and appointment was made for 1400 picker tender helper. Confirmation number [id number]. I asked if he had a way to get his prescriptions and he said he did. Case management will follow and assist as needed. Millie Barroso DCP- Discharge Planning Updated by [id number]: Yin Molina on 09/04/18 4:[address] Patient Name: MEHNAZ LOVELACE Admission Status: ER Accout number: [id number] Admission Date: 09-04-2018 : 1960 Admission Diagnosis: Attending: ALEXI LINDSAY Current LOS: 1 Anticipated DC Date: 09-06-2018 Planned Disposition: Home Primary Insurance: MEDICAID [place] Discharge Planning Comments: CM met with patient to complete initial dc planning assessment. CM educated patient on the CM role and verbal consent given by patient to complete assessment. Patient lives at home alone and reports he is independent in his care at home. At discharge patient plans to return home and feels this is a safe discharge. CM discussed availability of home health, rehab services, and medical equipment. Patient is unsure of what discharge needs he will have at this time. CM will continue to follow and will assist as needed with dc plans/needs. Food Truck Caterer: Yin Molina RN, [facility] DCPIA - Discharge Planning Initial Assessment Updated by [email or web address]: Yin Molina on 09/04/18 5:00 pm * Is the patient Alert and Oriented? Yes * How many steps to enter\exit or inside your home? three * PCP Don't have one * Pharmacy [facility] on [facility]/[place] * Preadmission Environment Home Alone * ADLs Independent * Equipment None * List name and contact numbers for known caregivers / representatives who currently or will assist patient after discharge: Silvana Orr [facility] [phone] * Verbal permission to speak to the caregivers and representatives has been obtained from the patient. Yes * Community resources currently utilized None * Additional services required to return to the preadmission environment? No * Can the patient safely return to the preadmission environment? Yes * Has this patient been hospitalized within the prior 30 days at any hospital? No Last DP export: 09/09/18 1:41 p Patient Name: MEHNAZ LOVELACE Page [phone] at 1044 All edits/amendments must be made on the electronic document DICTATION DATE: 09/10/18 1044 CENTRAL OFFICE TROUBLE SHOOTER: APOLINAR 09/10/18 1044 RPT#: [id number] DC DATE: STATUS: ADM IN [facility] [address] [place] [address] END OF REPORT
[2018-09-10 13:37] VITALS: BP 113/62
--- NOTE | 2018-09-10 16:29 | MORECARE ---
CASE MANAGEMENT DISCHARGE SUMMARY PATIENT: MEHNAZ LOVELACE JR UNIT: [id number] ADM DATE: 09/04/18 AGE: 58 : 60 SEX: M ROOM/BED: D.2229 AUTHOR: MAN VICENTE PHYSICIAN: REFERRING PHYSICIAN: ALEXI LINDSAY MD DATE OF SERVICE: 09/10/18 Discharge Plan Patient Name: MEHNAZ LOVELACE Facility: [facility]:[place] : 1960 Planned Disposition: Home Anticipated Discharge Date: 09/06/18 Discharge Date: 09/10/2018 Expected LOS: 2 Initial Reviewer: [email or web address] Initial Review Date: 09/04/2018 Generated: 09/10/18 5:28 pm Comments DCP- Discharge Planning Updated by [email or web address]: Millie Barroso on 09/10/18 9:[address] Received order for discharge. He declines home health. Dr. Cheung will change dressing on first f/u appointment. Ceci will give dressing supplies for when he is able to change his dressing. [employer] bus to shrimp picker at 1400. CM will continue to follow and assist with discharge planning/needs. DCP- Discharge Planning Updated by [id number]: Millie Barroso on 09/09/18 1:[address] Patient Name: MEHNAZ LOVELACE Encounter No: [id number] : 1960 Primary Insurance: MEDICAID [place] Anticipated DC Date: 09-06-2018 Planned Disposition: Home External Planned Provider: : DCP follow-up note: Patient and family in agreement with discharge plan. No changes to plan. He declines home health. He states he can change his own bandage. He states he needs to ride the [employer] bus home. I called and spoke to Radha at [facility] and appointment was made for 1400 shrimp picker. Confirmation number [id number]. I asked if he had a way to get his prescriptions and he said he did. Case management will follow and assist as needed. Millie Barroso DCP- Discharge Planning Updated by [email or web address]: Yin Molina on 09/04/18 4:[address] Patient Name: MEHNAZ LOVELACE Admission Status: ER Accout number: [id number] Admission Date: 09-04-2018 : 1960 Admission Diagnosis: Attending: ALEXI LINDSAY Current LOS: 1 Anticipated DC Date: 09-06-2018 Planned Disposition: Home Primary Insurance: MEDICAID [place] Discharge Planning Comments: CM met with patient to complete initial dc planning assessment. CM educated patient on the CM role and verbal consent given by patient to complete assessment. Patient lives at home alone and reports he is independent in his care at home. At discharge patient plans to return home and feels this is a safe discharge. CM discussed availability of home health, rehab services, and medical equipment. Patient is unsure of what discharge needs he will have at this time. CM will continue to follow and will assist as needed with dc plans/needs. Photographer Aerial: Yin Molina RN, [facility] DCPIA - Discharge Planning Initial Assessment Updated by [email or web address]: Yin Molina on 09/04/18 5:00 pm * Is the patient Alert and Oriented? Yes * How many steps to enter\exit or inside your home? three * PCP Don't have one * Pharmacy [facility] on [facility] * Preadmission Environment Home Alone * ADLs Independent * Equipment None * List name and contact numbers for known caregivers / representatives who currently or will assist patient after discharge: Silvana Orr [facility] [phone] * Verbal permission to speak to the caregivers and representatives has been obtained from the patient. Yes * Community resources currently utilized None * Additional services required to return to the preadmission environment? No * Can the patient safely return to the preadmission environment? Yes * Has this patient been hospitalized within the prior 30 days at any hospital? No Last DP export: 09/10/18 9:44 a Patient Name: MEHNAZ LOVELACE Page [id number] at 1629 All edits/amendments must be made on the electronic document DICTATION DATE: 09/10/181627 PROGRAM DIR: APOLINAR 09/10/181627 RPT#: [id number] DC DATE:09/10/18 STATUS: DIS IN [address] [address] END OF REPORT
== END 2018-09-10 15:31 | disposition home or self-care (01) | DRG 464 ==
LOC: D.ER 13:02 → D.MS 15:10
PROVIDERS: Family Medicine; ADMIT Internal Medicine Nephrology; ATTEND Internal Medicine Nephrology
PROC: 0JBQ0ZZ Excision of Right Foot Subcutaneous Tissue and Fascia, Open Approach (ICD-10-PCS; principal; 2018-09-04)
PROC: 0Y6X0Z0 Detachment at Right 5th Toe, Complete, Open Approach (ICD-10-PCS; 2018-09-07)
DX: M86.172 Other acute osteomyelitis, left ankle and foot (principal); L03.115 Cellulitis of right lower limb; F17.213 Nicotine dependence, cigarettes, with withdrawal; L97.512 Non-pressure chronic ulcer of other part of right foot with fat layer exposed

== ENCOUNTER 2018-09-30 16:54 | Inpatient (IN) | payer MEDICAID ==
[~2018-09-30] VITALS: Ht 182.9 cm; Wt 72.6 kg
[~2018-09-30 16:54] MED LIST changes: +BACTRIM 400-801 TAB PO; +COLACE100 MG PO; +FLORAJEN3 CAPS460 MG PO; +LACRI-LUBE S.O3.5 G1 LEFT EYE; +LEVAQUIN750 MG PO; +NORCO-10 PO; +Nicoderm [PBKC] TRANSDERM
[2018-09-30 17:54] VITALS: BMI 21.7
[2018-09-30 19:36] LABS: BASOPHILS 0.3 % (0-2); EOSINOPHILS 1.4 % (0-7); IMMATURE GRANULOCYTES 0.2 % (0-5); LYMPHOCYTES 16.3 % (15-50); MCH 29.7 pg (26.0-34.0); MCHC 33.3 g/dL (31.0-37.0); MCV 89.2 fL (80.0-100.0); MEAN PLATELET VOLUME 8.9 fL (7.4-10.4); MONOCYTES 10.9 % (2-11); NEUTROPHILS 70.9 % (40-80); RBC 4.37 10x6/uL (4.20-6.10); RDW 14.1 % (11.5-14.5); WBC 11.3 10x3/uL (4.8-10.8)
[2018-09-30 19:54] LABS: PLATELET COUNT 250 10x3/uL (130-400)
[2018-09-30 19:55] LABS: ALBUMIN 2.9 g/dL (3.4-5.0); ALKALINE PHOSPHATASE 100 U/L (46-116); ALT (SGPT) 17 U/L (10-68); BILIRUBIN - TOTAL 0.33 mg/dL (0.2-1.3); CALC OSMOLALITY 277 mosm/kg (275-300); CALCIUM 8.5 mg/dL (8.5-10.1); CARBON DIOXIDE 29.6 mmol/L (21.0-32.0); CHLORIDE - SERUM 101 mmol/L (98-107); CREATININE - SERUM 0.7 mg/dL (0.6-1.3); GLUCOSE 105 mg/dL (74-106); POTASSIUM - SERUM 3.6 mmol/L (3.5-5.1); PROTEIN - SERUM 7.8 g/dL (6.4-8.2); SODIUM 137 mmol/L (136-145); UREA NITROGEN 25 mg/dL (7-18); eGFR NON AFRICAN AMERICAN > 90 mL/min (90-120)
[2018-09-30 20:00] VITALS: BP 129/70
--- NOTE | 2018-09-30 20:29 | NUR ---
AWAKE,ALERT.COMPLAINTS OF PAIN. MORPHINE HIDE BUYER SET UP AND PATIENT INSTRUCTED ON USE. STATES UNDERSTANDING. IV TO LFA INTACT WITHOUT REDNESS OR EDEMA NOTED. DRSG TO LEFT FOOT INTACT WITHOUT DRAINAGE. CL IN REACH
[2018-10-01] VITALS: BP 114/78
--- NOTE | 2018-10-01 03:33 | NUR ---
I have reviewed this patient and I concur with the Shift Assessment completed by the Licensed Practical Nurse today this shift.
[2018-10-01 04:00] VITALS: BP 145/85
[2018-10-01 08:33] VITALS: BP 130/73
--- NOTE | 2018-10-01 11:15 | NUR ---
MORNING ASSESSMENT COMPELTE. SEE ASSESSMENT FLOWSHEET FOR FURTHER DETAILS. PT LYING IN BED AAO X4 TO PERSON, PALCE, TIME, AND SITUATION. DENIES NEEDS AT THIS TIME. CL IN REACH. SIDE RAILS UP X3 FOR PT SAFETY. BED IN LOWEST POSITON.
[2018-10-01 11:46] VITALS: BP 111/72
[2018-10-01 12:43] VITALS: Ht 182.9 cm; Wt 72.6 kg
[2018-10-01 12:44] LABS: BASOPHILS 0.3 % (0-2); EOSINOPHILS 3.7 % (0-7); HEMATOCRIT 39.2 % (42.0-54.0); HEMOGLOBIN 13.1 g/dL (13.5-17.5); IMMATURE GRANULOCYTES 0.1 % (0-5); LYMPHOCYTES 13.6 % (15-50); MCHC 33.4 g/dL (31.0-37.0); MCV 89.7 fL (80.0-100.0); MEAN PLATELET VOLUME 9.2 fL (7.4-10.4); MONOCYTES 13.4 % (2-11); NEUTROPHILS 68.9 % (40-80); PLATELET COUNT 258 10x3/uL (130-400); RBC 4.37 10x6/uL (4.20-6.10); RDW 14.1 % (11.5-14.5); WBC 8.6 10x3/uL (4.8-10.8)
[2018-10-01 12:46] LABS: CALC OSMOLALITY 274 mosm/kg (275-300); CALCIUM 8.6 mg/dL (8.5-10.1); CARBON DIOXIDE 31.7 mmol/L (21.0-32.0); CHLORIDE - SERUM 100 mmol/L (98-107); CREATININE - SERUM 0.8 mg/dL (0.6-1.3); GLUCOSE 118 mg/dL (74-106); POTASSIUM - SERUM 3.7 mmol/L (3.5-5.1); SODIUM 136 mmol/L (136-145); UREA NITROGEN 18 mg/dL (7-18); eGFR NON AFRICAN AMERICAN > 90 mL/min (90-120)
[2018-10-01 15:05] LABS: UDS - AMPHET NEGATIVE QUAL (NEGATIVE); UDS - BARB NEGATIVE QUAL (NEGATIVE); UDS - BENZO NEGATIVE QUAL (NEGATIVE); UDS - COCAINE NEGATIVE QUAL (NEGATIVE); UDS - OPIATE POSITIVE QUAL (NEGATIVE); UDS - PCP NEGATIVE QUAL (NEGATIVE); UDS - THC POSITIVE QUAL (NEGATIVE)
[2018-10-01 16:52] VITALS: BP 107/57
--- NOTE | 2018-10-01 19:45 | NUR ---
PT RESTING IN BED. ALERT AND ORIENTED. NO SIGNS OF DISTRESS. BREATHING EVEN AND UNLABORED. PT STATES NO PROBLEMS AT THIS TIME. IV SITE LT FA DRESSING CLEAN DRY AND INTACT. NO SIGNS OF INFECTION. SKIN CLEAN DRY AND INTACT. BOWEL SOUNDS ACTIVE. NO LOWER LEG SWELLING PRESENT. LT FOOT DRESSING CLEAN DRY AND INTACT. WILL CONTINUE PLAN OF CARE. CALL LIGHT IN REACH. BED LOWERED AND LOCKED. BED RAILS UP X2.
[2018-10-01 21:08] VITALS: BP 120/68
[2018-10-02 01:01] VITALS: BP 126/70
--- NOTE | 2018-10-02 01:55 | NUR ---
I have reviewed this patient and I concur with the Shift Assessment completed by the Licensed Practical Nurse today this shift.
[2018-10-02 04:16] LABS: BASOPHILS 0.7 % (0-2); EOSINOPHILS 7.4 % (0-7); HEMATOCRIT 38.2 % (42.0-54.0); HEMOGLOBIN 12.6 g/dL (13.5-17.5); IMMATURE GRANULOCYTES 0.1 % (0-5); LYMPHOCYTES 20.8 % (15-50); MCH 29.8 pg (26.0-34.0); MCV 90.3 fL (80.0-100.0); MEAN PLATELET VOLUME 8.9 fL (7.4-10.4); MONOCYTES 14.6 % (2-11); NEUTROPHILS 56.4 % (40-80); PLATELET COUNT 263 10x3/uL (130-400); RBC 4.23 10x6/uL (4.20-6.10); RDW 14.3 % (11.5-14.5); WBC 7.1 10x3/uL (4.8-10.8)
[2018-10-02 04:23] LABS: CALC OSMOLALITY 280 mosm/kg (275-300); CALCIUM 8.3 mg/dL (8.5-10.1); CARBON DIOXIDE 29.5 mmol/L (21.0-32.0); CHLORIDE - SERUM 104 mmol/L (98-107); CREATININE - SERUM 0.9 mg/dL (0.6-1.3); GLUCOSE 144 mg/dL (74-106); POTASSIUM - SERUM 4.5 mmol/L (3.5-5.1); SODIUM 138 mmol/L (136-145); UREA NITROGEN 18 mg/dL (7-18); eGFR NON AFRICAN AMERICAN > 90 mL/min (90-120)
[2018-10-02 05:19] VITALS: BP 127/68
[2018-10-02 08:43] VITALS: BP 133/70
--- NOTE | 2018-10-02 11:16 | NUR ---
PATIENT RESTING. REQUESTED SOME COFFEE WILL MAKE SURE HE GETS IT.
[2018-10-02] MEDS ORDERED: SULFAMETHOXAZOL1 TA3 PO (12:30)
--- NOTE | 2018-10-02 13:04 | MORECARE ---
CASE MANAGEMENT DISCHARGE SUMMARY PATIENT: MEHNAZ LOVELACE JR UNIT: [id number] ADM DATE: 09/30/18 AGE: 58 : 60 SEX: M ROOM/BED: D.2206 AUTHOR: MAN VICENTE PHYSICIAN: REFERRING PHYSICIAN: JOSÉ MARTE DPM DATE OF SERVICE: 10/02/18 Discharge Plan Patient Name: MEHNAZ LOVELACE Facility: [facility]:[place] : 1960 Planned Disposition: Home Health Service Anticipated Discharge Date: Discharge Date: Expected LOS: Initial Reviewer: [email or web address] Initial Review Date: 09/30/2018 Generated: 10/02/18 2:04 pm DCPIA - Discharge Planning Initial Assessment Updated by [id number]: Mona Mejia on 10/02/18 1:04 pm * Is the patient Alert and Oriented? Yes * How many steps to enter\exit or inside your home? * PCP NONE * Pharmacy [facility] ON [address] [facility] * Preadmission Environment Home Alone * ADLs Independent * Equipment None * List name and contact numbers for known caregivers / representatives who currently or will assist patient after discharge: [facility] (SISTER) [phone] * Verbal permission to speak to the caregivers and representatives has been obtained from the patient. N/A * Community resources currently utilized None * Additional services required to return to the preadmission environment? No * Can the patient safely return to the preadmission environment? Yes * Has this patient been hospitalized within the prior 30 days at any hospital? Yes External Providers External Provider: [facility] Contact Date: Service Request Date: Service Type: Resolution: Reviewer: Comments: Patient Name: MEHNAZ LOVELACE Page [phone] at 1304 All edits/amendments must be made on the electronic document DICTATION DATE: 10/02/18 1304 AGILE JAVA DEVELOPER: APOLINAR 10/02/18 1304 RPT#: [id number] DC DATE: STATUS: ADM IN [place] [address] [place] [address] END OF REPORT
--- NOTE | 2018-10-02 13:13 | MORECARE ---
CASE MANAGEMENT DISCHARGE SUMMARY PATIENT: MEHNAZ LOVELACE JR UNIT: [id number] ADM DATE: 09/30/18 AGE: 58 : 60 SEX: M ROOM/BED: D.2206 AUTHOR: JULES,DOC PHYSICIAN: REFERRING PHYSICIAN: JOSÉ MARTE DPM DATE OF SERVICE: 10/02/18 Discharge Plan Patient Name: MEHNAZ LOVELACE Facility: [facility]:[place] : 1960 Planned Disposition: Home Health Service Anticipated Discharge Date: Discharge Date: Expected LOS: Initial Reviewer: [email or web address] Initial Review Date: 09/30/2018 Generated: 10/02/18 2:13 pm Comments DCP- Discharge Planning Updated by [id number]: Mona Mejia on 10/02/18 12:[address] Cost of Bactrim was $12.13 , charged to the CM account approved by Marisela Ivey RN DCP- Discharge Planning Updated by [email or web address]: Mona Mejia on 10/02/18 12:[address] Patient Name: MEHNAZ LOVELACE Admission Status: Urgent Accout number: [id number] Admission Date: 09-30-2018 : 1960 Admission Diagnosis: Attending: JOSÉ MARTE Current LOS: 2 Anticipated DC Date: Planned Disposition: Home Health Service Primary Insurance: MEDICAID [place] Discharge Planning Comments: CM met with patient to complete initial dc planning assessment. CM educated patient on the CM role and verbal consent given by patient to complete assessment. Patient lives at home where he states he is independent with his care. At discharge patient plans to return home and feels this is a safe discharge. [facility] will [facility] one to transport him today, I spoke with Reglajayant perry # [phone]. CM discussed availability of home health, rehab services, and medical equipment. NATASHA with [employer], faxed referral to them spoke with Mariia. CM also is paying for his abx. Bactrim 800mg BID po x 14 days, through [employer] approval by Marisela Ivey and I spoke with Tejal @ [facility]. They will delivered his abx to desk. Patient denies any other known discharge needs at this time. CM will continue to follow and will assist as needed with dc plans/needs. Diesel Engine Engineer: Mona Mejia DCPIA - Discharge Planning Initial Assessment Updated by [email or web address]: Mona Mejia on 10/02/18 1:04 pm * Is the patient Alert and Oriented? Yes * How many steps to enter\exit or inside your home? * PCP NONE * Pharmacy [facility] [address] * Preadmission Environment Home Alone * ADLs Independent * Equipment None * List name and contact numbers for known caregivers / representatives who currently or will assist patient after discharge: [facility] (SISTER) [phone] * Verbal permission to speak to the caregivers and representatives has been obtained from the patient. N/A * Community resources currently utilized None * Additional services required to return to the preadmission environment? No * Can the patient safely return to the preadmission environment? Yes * Has this patient been hospitalized within the prior 30 days at any hospital? Yes Coverage Notice Reviewer: [id number] - Mona Mejia Notice Issued Date-Time: 10/02/2018 12:00 Notice Type: Patient Choice Letter Notice Delivered To: Patient Relationship to Patient: Sail Repair Person Name: Delivery Method: HAND - Hand Delivered Sherin Days: Prior Verbal Notification: Recipient Understood Notice: Yes Recipient Signature: Yes Med Rec Note Co-signed by Attending: Coverage Notice Comment: natasha with pietro Fuller DP export: 10/02/18 12:04 p Patient Name: MEHNAZ LOVELACE Page [phone] at 1313 All edits/amendments must be made on the electronic document DICTATION DATE: 10/02/18 1312 CONVEYOR MAN: APOLINAR 10/02/18 1312 RPT#: [id number] DC DATE: STATUS: ADM IN [facility] [address] [place] [address] END OF REPORT
--- NOTE | 2018-10-02 14:58 | MORECARE ---
CASE MANAGEMENT DISCHARGE SUMMARY PATIENT: MEHNAZ LOVELACE JR UNIT: [id number] ADM DATE: 09/30/18 AGE: 58 : 60 SEX: M ROOM/BED: D.2206 AUTHOR: JULES,DOC PHYSICIAN: REFERRING PHYSICIAN: JOSÉ MARTE DPM DATE OF SERVICE: 10/02/18 Discharge Plan Patient Name: MEHNAZ LOVELACE Facility: [facility]:[place] : 1960 Planned Disposition: Home Health Service Anticipated Discharge Date: Discharge Date: Expected LOS: Initial Reviewer: [email or web address] Initial Review Date: 09/30/2018 Generated: 10/02/18 3:58 pm Comments DCP- Discharge Planning Updated by [email or web address]: Mona Mejia on 10/02/18 1:[address] MEDICINE WAS DELIVERED TO THE HOSPITAL BY [facility], I GAVE THE PATIENT HIS SCRIPT DCP- Discharge Planning Updated by [email or web address]: Mona Mejia on 10/02/18 12:[address] Cost of Bactrim was $12.13 , charged to the CM account approved by Marisela Ivey RN DCP- Discharge Planning Updated by [email or web address]: Mona Mejia on 10/02/18 12:[address] Patient Name: MEHNAZ LOVELACE Admission Status: Urgent Accout number: [id number] Admission Date: 09-30-2018 : 1960 Admission Diagnosis: Attending: JOSÉ MARTE Current LOS: 2 Anticipated DC Date: Planned Disposition: Home Health Service Primary Insurance: MEDICAID [place] Discharge Planning Comments: CM met with patient to complete initial dc planning assessment. CM educated patient on the CM role and verbal consent given by patient to complete assessment. Patient lives at home where he states he is independent with his care. At discharge patient plans to return home and feels this is a safe discharge. [facility] will be the one to transport him today, I spoke with Regla perry # [phone]. CM discussed availability of home health, rehab services, and medical equipment. NATASHA with [facility], faxed referral to them spoke with Mariia. CM also is paying for his abx. Bactrim 800mg BID po x 14 days, through [employer] approval by Marisela Ivey and I spoke with Tejal @ [employer]. They will delivered his abx to CM desk. Patient denies any other known discharge needs at this time. CM will continue to follow and will assist as needed with dc plans/needs. Mix House Operator: Mona Mejia DCPIA - Discharge Planning Initial Assessment Updated by [email or web address]: Mona Mejia on 10/02/18 1:04 pm * Is the patient Alert and Oriented? Yes * How many steps to enter\exit or inside your home? * PCP NONE * Pharmacy [facility] [address] [facility] * Preadmission Environment Home Alone * ADLs Independent * Equipment None * List name and contact numbers for known caregivers / representatives who currently or will assist patient after discharge: [facility] (SISTER) [phone] * Verbal permission to speak to the caregivers and representatives has been obtained from the patient. N/A * Community resources currently utilized None * Additional services required to return to the preadmission environment? No * Can the patient safely return to the preadmission environment? Yes * Has this patient been hospitalized within the prior 30 days at any hospital? Yes Coverage Notice Reviewer: [id number] - Mona Mejia Notice Issued Date-Time: 10/02/2018 12:00 Notice Type: Patient Choice Letter Notice Delivered To: Patient Relationship to Patient: Case Fitter Name: Delivery Method: HAND - Hand Delivered Sherin Days: Prior Verbal Notification: Recipient Understood Notice: Yes Recipient Signature: Yes Med Rec Note Co-signed by Attending: Coverage Notice Comment: natasha with pietro Fuller DP export: 10/02/18 12:13 p Patient Name: MEHNAZ LOVELACE Page [phone] at 1458 All edits/amendments must be made on the electronic document DICTATION DATE: 10/02/181456 GREENSKEEPER HEAD: APOLINAR 10/02/181456 RPT#: [id number] DC DATE: STATUS: ADM IN [facility] [address] [place] [address] END OF REPORT
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
== END 2018-10-02 15:26 | disposition home health service (06) | DRG 863 ==
LOC: D.MS 16:54
PROVIDERS: Internal Medicine Nephrology; ADMIT Podiatrist Foot & Ankle Surgery; ATTEND Podiatrist Foot & Ankle Surgery
DX: T81.49XA Infection following a procedure, other surgical site, initial encounter (principal); L03.032 Cellulitis of left toe

== ENCOUNTER 2018-12-11 13:13 | Inpatient (IN) | payer MEDICAID ==
[~2018-12-11] VITALS: Ht 182.9 cm; Wt 72.6 kg
[~2018-12-11 13:13] MED LIST changes: +SULFAMETHOXAZOL1 TA3 PO
[2018-12-11 13:50] LABS: BASOPHILS 0.1 % (0-2); EOSINOPHILS 0.2 % (0-7); HEMATOCRIT 36.5 % (42.0-54.0); HEMOGLOBIN 12.2 g/dL (13.5-17.5); IMMATURE GRANULOCYTES 0.3 % (0-5); LYMPHOCYTES 7.7 % (15-50); MCH 29.5 pg (26.0-34.0); MCHC 33.4 g/dL (31.0-37.0); MCV 88.4 fL (80.0-100.0); MEAN PLATELET VOLUME 9.5 fL (7.4-10.4); MONOCYTES 12.2 % (2-11); NEUTROPHILS 79.5 % (40-80); PLATELET COUNT 269 10x3/uL (130-400); RBC 4.13 10x6/uL (4.20-6.10); RDW 14.3 % (11.5-14.5); WBC 14.9 10x3/uL (4.8-10.8)
[2018-12-11 14:00] LABS: APTT 36.8 SECONDS (22.8-39.4); INR 1.12 (0.85-1.17); PROTIME 13.9 SECONDS (11.6-15.0)
[2018-12-11 14:04] LABS: ALBUMIN 2.8 g/dL (3.4-5.0); ALKALINE PHOSPHATASE 78 U/L (46-116); ALT (SGPT) 16 U/L (10-68); BILIRUBIN - TOTAL 0.54 mg/dL (0.2-1.3); CALC OSMOLALITY 267 mosm/kg (275-300); CALCIUM 8.6 mg/dL (8.5-10.1); CARBON DIOXIDE 28.6 mmol/L (21.0-32.0); CHLORIDE - SERUM 99 mmol/L (98-107); CREATININE - SERUM 0.6 mg/dL (0.6-1.3); GLUCOSE 103 mg/dL (74-106); POTASSIUM - SERUM 3.8 mmol/L (3.5-5.1); PROTEIN - SERUM 7.8 g/dL (6.4-8.2); SODIUM 134 mmol/L (136-145); UREA NITROGEN 13 mg/dL (7-18); eGFR NON AFRICAN AMERICAN > 90 mL/min (90-120)
[2018-12-11 14:15] LABS: CKMB 0.5 U/L (0.0-3.6); CREATINE KINASE 60 UL (21-232); TROPONIN-I < 0.017 ng/mL (0.000-0.060)
[2018-12-11 17:47] VITALS: BP 113/68; BMI 21.7
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
[2018-12-11 20:23] VITALS: BP 96/57
[2018-12-12 00:27] VITALS: BP 127/78
[2018-12-12 05:12] VITALS: BP 125/66
[2018-12-12 07:16] LABS: BASOPHILS 0.3 % (0-2); EOSINOPHILS 0.6 % (0-7); HEMATOCRIT 35.8 % (42.0-54.0); IMMATURE GRANULOCYTES 0.2 % (0-5); LYMPHOCYTES 11.4 % (15-50); MCH 29.3 pg (26.0-34.0); MCHC 33.5 g/dL (31.0-37.0); MCV 87.5 fL (80.0-100.0); MEAN PLATELET VOLUME 10.2 fL (7.4-10.4); MONOCYTES 9.9 % (2-11); NEUTROPHILS 77.6 % (40-80); PLATELET COUNT 304 10x3/uL (130-400); RBC 4.09 10x6/uL (4.20-6.10); RDW 14.3 % (11.5-14.5); WBC 11.5 10x3/uL (4.8-10.8)
[2018-12-12 07:25] LABS: INR 1.15 (0.85-1.17); PROTIME 14.2 SECONDS (11.6-15.0)
[2018-12-12 07:29] LABS: CALC OSMOLALITY 266 mosm/kg (275-300); CALCIUM 8.3 mg/dL (8.5-10.1); CARBON DIOXIDE 26.5 mmol/L (21.0-32.0); CHLORIDE - SERUM 99 mmol/L (98-107); GLUCOSE 91 mg/dL (74-106); PHOSPHOROUS 2.8 mg/dL (2.5-4.9); POTASSIUM - SERUM 3.8 mmol/L (3.5-5.1); SODIUM 133 mmol/L (136-145); UREA NITROGEN 15 mg/dL (7-18)
[2018-12-12 07:31] LABS: CREATININE - SERUM 0.8 mg/dL (0.6-1.3); eGFR NON AFRICAN AMERICAN > 90 mL/min (90-120)
--- NOTE | 2018-12-12 08:27 | NUR ---
AAOX4. ON ROOM AIR. IV TO LEFT FOREARM, PATENT, INFUSING NS 100ML/HR. C/O PAIN 03/02. ADMINISTERED PRN MORPHINE PER ORDER, DENIES ANY OTHER NEEDS OR DISCOMFORTS. BED LOWERED AND LOCKED, CALL LIGHT WITHIN REACH. CPOC
[2018-12-12 09:41] VITALS: BP 136/83
[2018-12-12 10:24] LABS: APPEARANCE CLEAR (CLEAR); COLOR YELLOW (YELLOW); NITRITE NEGATIVE (NEGATIVE); PROTEIN NEGATIVE (NEGATIVE)
[2018-12-12 10:25] LABS: BACTERIA FEW /hpf (NONE SEEN); BILIRUBIN NEGATIVE (NEGATIVE); EPITHELIAL CELLS 0-5 /hpf (0-5); GLUCOSE 1000 mg/dL (NEGATIVE); KETONE NEGATIVE (NEGATIVE); UROBILINOGEN NORMAL (NORMAL); WHITE CELLS - URINE 0-5 /hpf (0-5)
[2018-12-12 12:24] LABS: % SATURATION 7 % (15-55); IRON 11 ug/dl (35-150); TOTAL IRON BIND CAPACITY 155 ug/dl (260-445); UNSAT IRON BIND CAPACITY 144 ug/dl (150-375)
[2018-12-12 12:37] LABS: FERRITIN 526 ng/mL (3-244); LDH 210 U/L (85-227)
[2018-12-12 12:57] VITALS: Ht 182.9 cm; Wt 72.6 kg
[2018-12-12 12:59] VITALS: BP 129/64
[2018-12-12 16:28] VITALS: BP 133/81
[2018-12-12 20:00] VITALS: BP 136/78
[2018-12-13] VITALS: BP 122/68
--- NOTE | 2018-12-13 03:00 | NUR ---
I have reviewed this patient and I concur with the Shift Assessment completed by the Licensed Practical Nurse today this shift.
[2018-12-13 04:00] VITALS: BP 130/78
--- NOTE | 2018-12-13 08:24 | NUR ---
PT ALERT X 4. BREATH SOUNDS CLEAR BILAT. IV TO LEFT AC, PATENT, DRESSING CDI. PT REPORTING HEADACHE OF 7/10, MEDICATED PER ORDERS, WILL MONITOR. BREAKFAST IN ROOM. BED LOW, CALL LIGHT IN REACH. NO OTHER NEEDS AT THIS TIME.
[2018-12-13 09:19] VITALS: BP 131/79
[2018-12-13 10:37] LABS: BASOPHILS 0.3 % (0-2); EOSINOPHILS 1.9 % (0-7); HEMATOCRIT 34.7 % (42.0-54.0); HEMOGLOBIN 11.3 g/dL (13.5-17.5); IMMATURE GRANULOCYTES 0.2 % (0-5); LYMPHOCYTES 13.9 % (15-50); MCHC 32.6 g/dL (31.0-37.0); MCV 89.2 fL (80.0-100.0); MEAN PLATELET VOLUME 10.7 fL (7.4-10.4); MONOCYTES 17.1 % (2-11); NEUTROPHILS 66.6 % (40-80); PLATELET COUNT 327 10x3/uL (130-400); RBC 3.89 10x6/uL (4.20-6.10); RDW 14.7 % (11.5-14.5)
[2018-12-13 10:39] LABS: CALCIUM 8.2 mg/dL (8.5-10.1); CARBON DIOXIDE 25.3 mmol/L (21.0-32.0); CHLORIDE - SERUM 103 mmol/L (98-107); CREATININE - SERUM 0.8 mg/dL (0.6-1.3); SODIUM 137 mmol/L (136-145); eGFR NON AFRICAN AMERICAN > 90 mL/min (90-120)
[2018-12-13 10:40] LABS: CALC OSMOLALITY 275 mosm/kg (275-300); GLUCOSE 144 mg/dL (74-106); UREA NITROGEN 10 mg/dL (7-18)
[2018-12-13 12:55] VITALS: BP 135/75
[2018-12-13 17:22] VITALS: BP 111/70; BP 138/69
--- NOTE | 2018-12-13 19:50 | NUR ---
PT LYING IN BED WITHOUT DISTRESS, WITHOUT NEEDS. IV LEFT UPPER ARM INFUSING NS @ 100. ALERT AND ORIENTED, USING URINAL TO VOID. CONTACT ISOLATION IN PLACE, CL IN REACH, WILL CTM
[2018-12-13 20:00] VITALS: BP 138/81
--- NOTE | 2018-12-13 20:30 | NUR ---
MORPHINE GIVEN ORDERED FOR PAIN TO LEFT FOOT AND BACK 04/01
--- NOTE | 2018-12-13 22:00 | NUR ---
DRESSING CHANGED TO LEFT FOOT ORDERED
[2018-12-14] VITALS: BP 126/67
--- NOTE | 2018-12-14 00:30 | NUR ---
MORPHINE GIVEN FOR PAIN 10/10 IN BACK AND LEFT FOOT
[2018-12-14 04:16] LABS: BASOPHILS 0.2 % (0-2); EOSINOPHILS 2.3 % (0-7); HEMATOCRIT 33.1 % (42.0-54.0); HEMOGLOBIN 10.8 g/dL (13.5-17.5); IMMATURE GRANULOCYTES 0.1 % (0-5); LYMPHOCYTES 17.1 % (15-50); MCH 28.6 pg (26.0-34.0); MCHC 32.6 g/dL (31.0-37.0); MCV 87.8 fL (80.0-100.0); MEAN PLATELET VOLUME 9.4 fL (7.4-10.4); MONOCYTES 16.4 % (2-11); NEUTROPHILS 63.9 % (40-80); PLATELET COUNT 313 10x3/uL (130-400); RBC 3.77 10x6/uL (4.20-6.10); RDW 14.3 % (11.5-14.5); WBC 8.7 10x3/uL (4.8-10.8)
[2018-12-14 04:52] LABS: CALC OSMOLALITY 270 mosm/kg (275-300); CALCIUM 8.4 mg/dL (8.5-10.1); CARBON DIOXIDE 30.9 mmol/L (21.0-32.0); CHLORIDE - SERUM 99 mmol/L (98-107); CREATININE - SERUM 0.7 mg/dL (0.6-1.3); GLUCOSE 108 mg/dL (74-106); MAGNESIUM - SERUM 1.8 mg/dL (1.8-2.4); PHOSPHOROUS 3.3 mg/dL (2.5-4.9); POTASSIUM - SERUM 3.8 mmol/L (3.5-5.1); SODIUM 136 mmol/L (136-145); UREA NITROGEN 8 mg/dL (7-18); eGFR NON AFRICAN AMERICAN > 90 mL/min (90-120)
[2018-12-14 09:01] VITALS: BP 140/83
--- NOTE | 2018-12-14 10:05 | NUR ---
MORNING ASSESSMENT COMPLETE. SEE ASSESSMENT FLOWSHEET FOR FURTHER DETAILS. PT LYING IN BED AAO X4 TO PERSON, PLACE, TIME, AND SITUATION. DENIES NEEDS AT THIS TIME. CL IN REACH. SIDE RAILS UP X3 FOR PT SAFETY. BED IN LOWEST POSITION.
--- NOTE | 2018-12-14 10:27 | NUR ---
NUTRITION F/U CHART REVIEWED, PT VISIT. REMAINS IN ISOLATION. PT REPORTS TOLERATING REG DIET WITH GOOD INTAKE MEALS. WILL CONTINUE TO PROVIDE DIET, HONOR FOOD PREFERENCES. RD FOLLOWING
[2018-12-14 13:18] VITALS: BP 132/75
[2018-12-14 16:45] VITALS: BP 123/56
[2018-12-14 21:12] VITALS: BP 129/70
--- NOTE | 2018-12-15 03:54 | NUR ---
I have reviewed this patient and I concur with the Shift Assessment completed by the Licensed Practical Nurse today this shift.
[2018-12-15 04:45] VITALS: BP 145/78
[2018-12-15 05:46] LABS: BASOPHILS 0.2 % (0-2); EOSINOPHILS 2.1 % (0-7); HEMOGLOBIN 10.8 g/dL (13.5-17.5); IMMATURE GRANULOCYTES 0.3 % (0-5); LYMPHOCYTES 14.2 % (15-50); MCH 28.6 pg (26.0-34.0); MCHC 32.7 g/dL (31.0-37.0); MCV 87.3 fL (80.0-100.0); MEAN PLATELET VOLUME 10.5 fL (7.4-10.4); MONOCYTES 13.9 % (2-11); NEUTROPHILS 69.3 % (40-80); PLATELET COUNT 339 10x3/uL (130-400); RBC 3.78 10x6/uL (4.20-6.10); RDW 14.4 % (11.5-14.5)
[2018-12-15 06:06] LABS: WBC 11.8 10x3/uL (4.8-10.8)
[2018-12-15 06:17] LABS: CALC OSMOLALITY 270 mosm/kg (275-300); CALCIUM 8.5 mg/dL (8.5-10.1); CARBON DIOXIDE 28.5 mmol/L (21.0-32.0); CHLORIDE - SERUM 102 mmol/L (98-107); GLUCOSE 108 mg/dL (74-106); MAGNESIUM - SERUM 1.9 mg/dL (1.8-2.4); PHOSPHOROUS 3.5 mg/dL (2.5-4.9); POTASSIUM - SERUM 3.9 mmol/L (3.5-5.1); SODIUM 136 mmol/L (136-145); UREA NITROGEN 7 mg/dL (7-18)
[2018-12-15 06:25] LABS: CREATININE - SERUM 0.5 mg/dL (0.6-1.3); eGFR NON AFRICAN AMERICAN > 90 mL/min (90-120)
[2018-12-15 08:13] LABS: FOLATE (FOLIC ACID) - SERUM 9.1 ng/mL (>3.0)
[2018-12-15 09:29] VITALS: BP 128/71
--- NOTE | 2018-12-15 12:03 | NUR ---
MORNING ASSESSMENT COMPLETE. SEE ASSESSMENT FLOWSHEET FOR FURHTER DETAILS. PT LYING IN BED AAO X4 TO PERSON, PLACE, TIME, AND SITUATION. DENIES NEEDS AT THIS TIME. CL IN REACH. SIDE RAILS UP X3 FOR PT SAFETY. BED IN LOWEST POSITION. PLAN FOR SX TODAY.
[2018-12-15 13:42] VITALS: BP 132/73
[2018-12-15 15:12] LABS: SPE - A/G RATIO 0.7 (0.7-1.7); SPE - ALBUMIN 2.5 g/dL (2.9-4.4); SPE - ALPHA-1 GLOBULIN 0.4 g/dL (0.0-0.4); SPE - ALPHA-2 GLOBULIN 1.1 g/dL (0.4-1.0); SPE - GAMMA GLOBULIN 1.3 g/dL (0.4-1.8); SPE - M-SPIKE Not Observed g/dL (Not Observed); SPE - TOTAL PROTEIN 6.2 g/dL (6.0-8.5)
--- NOTE | 2018-12-15 16:00 | NUR ---
CARE ASSUMED FROM KETTY ARCHIBALD RN
--- NOTE | 2018-12-15 16:35 | NUR ---
CARE TRANSFERRED TO EDMOND SOW RN
--- NOTE | 2018-12-15 18:44 | NUR ---
AT 1635 CONSULTED ANESTHESIA REGARDING PERSISTENT PAIN WITH NO RESPONSE TO DILAUDID. AT 1645 ANESTHESIA AT BEDSIDE PERFORMING POPLITEAL BLOCK. WILL CONTINUE TO MONITOR.
[2018-12-15 20:48] VITALS: BP 115/68
[2018-12-16] VITALS (7 sets, daily range): BP systolic 124–135; BP diastolic 60–76
[2018-12-16 06:28] LABS: BASOPHILS 0.2 % (0-2); CALCIUM 8.3 mg/dL (8.5-10.1); CARBON DIOXIDE 26.2 mmol/L (21.0-32.0); CHLORIDE - SERUM 101 mmol/L (98-107); EOSINOPHILS 0.4 % (0-7); GLUCOSE 113 mg/dL (74-106); HEMATOCRIT 33.1 % (42.0-54.0); HEMOGLOBIN 10.9 g/dL (13.5-17.5); IMMATURE GRANULOCYTES 0.3 % (0-5); LYMPHOCYTES 8.8 % (15-50); MAGNESIUM - SERUM 1.9 mg/dL (1.8-2.4); MCH 28.6 pg (26.0-34.0); MCHC 32.9 g/dL (31.0-37.0); MCV 86.9 fL (80.0-100.0); MEAN PLATELET VOLUME 10.1 fL (7.4-10.4); MONOCYTES 11.3 % (2-11); PHOSPHOROUS 3.8 mg/dL (2.5-4.9); POTASSIUM - SERUM 3.6 mmol/L (3.5-5.1); RBC 3.81 10x6/uL (4.20-6.10); RDW 14.6 % (11.5-14.5); SODIUM 135 mmol/L (136-145); WBC 14.2 10x3/uL (4.8-10.8)
[2018-12-16 06:29] LABS: CALC OSMOLALITY 270 mosm/kg (275-300); CREATININE - SERUM 0.8 mg/dL (0.6-1.3); UREA NITROGEN 12 mg/dL (7-18); eGFR NON AFRICAN AMERICAN > 90 mL/min (90-120)
[2018-12-16 06:31] LABS: PLATELET COUNT 408 10x3/uL (130-400)
--- NOTE | 2018-12-16 10:50 | NUR ---
PT CO OF PAIN. "CHRONIC BACK PAIN" NORRIS MUNOZ RESITED IV TO L FOREARM. FLUSHED WELL. RESTARTED IV FLUIDS. NO S/S OF ACUTE DISTRESS. CL IN PLACE.
--- NOTE | 2018-12-16 19:25 | NUR ---
PT RESTING IN BED. CO OF "HURTING AFTER IT PACKING" MORPHINE GIVEN PER MD ORDER. NO S/S OF ACUTE DISTRESS. CL IN PLACE.
[2018-12-17 01:25] VITALS: BP 121/71
--- NOTE | 2018-12-17 05:07 | NUR ---
PT RESTING IN BED. EYES CLOSED. NO SIGNS OF DISTRESS. BREATHING EVEN AND UNLABORED. BED LOWERED AND LOCKED. WILL CONTINUE PLAN OF CARE. CALL LIGHT IN REACH.
[2018-12-17 05:29] VITALS: BP 140/66
[2018-12-17 06:40] LABS: BASOPHILS 0.6 % (0-2); EOSINOPHILS 1.7 % (0-7); HEMATOCRIT 32.8 % (42.0-54.0); HEMOGLOBIN 10.6 g/dL (13.5-17.5); IMMATURE GRANULOCYTES 0.2 % (0-5); LYMPHOCYTES 15.5 % (15-50); MCH 28.4 pg (26.0-34.0); MCHC 32.3 g/dL (31.0-37.0); MCV 87.9 fL (80.0-100.0); MEAN PLATELET VOLUME 9.9 fL (7.4-10.4); MONOCYTES 14.1 % (2-11); NEUTROPHILS 67.9 % (40-80); PLATELET COUNT 421 10x3/uL (130-400); RBC 3.73 10x6/uL (4.20-6.10); RDW 14.8 % (11.5-14.5); WBC 12.7 10x3/uL (4.8-10.8)
--- NOTE | 2018-12-17 06:53 | NUR ---
I have reviewed this patient and I concur with the Shift Assessment completed by the Licensed Practical Nurse today this shift.
[2018-12-17 07:00] LABS: C-REACTIVE PROTEIN 12.6 mg/dL (0.0-0.9); CALC OSMOLALITY 276 mosm/kg (275-300); CALCIUM 8.3 mg/dL (8.5-10.1); CARBON DIOXIDE 29.9 mmol/L (21.0-32.0); CHLORIDE - SERUM 102 mmol/L (98-107); CREATININE - SERUM 0.7 mg/dL (0.6-1.3); GLUCOSE 106 mg/dL (74-106); MAGNESIUM - SERUM 2.1 mg/dL (1.8-2.4); PHOSPHOROUS 3.3 mg/dL (2.5-4.9); POTASSIUM - SERUM 3.7 mmol/L (3.5-5.1); SODIUM 138 mmol/L (136-145); UREA NITROGEN 15 mg/dL (7-18); eGFR NON AFRICAN AMERICAN > 90 mL/min (90-120)
[2018-12-17 09:10] LABS: ERYTHROCYTE SEDIMENTATION RATE 90 mm/hr (0-20)
[2018-12-17 09:11] VITALS: BP 138/78
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
[2018-12-17 12:56] VITALS: BP 142/84
--- NOTE | 2018-12-17 14:18 | NUR ---
Nutrition Follow Up: Chart reviewed Diet: Regular PO Intake: 94% meal avg BM: 12/15/18 Meds and labs reviewed Rec continue current diet. RD following.
[2018-12-17 16:45] VITALS: BP 128/72
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
--- NOTE | 2018-12-17 19:00 | NUR ---
REPORT RECEIVED AND CARE OF PT ASSUMED. PT LYING IN SUPINE POSITION WITH EYES CLOSED. IV IN LEFT FA PATENT WITH NS INFUSING AT 100 ML / HR. DRESSING ON LEFT FOOT CLEAN AND DRY.
--- NOTE | 2018-12-17 21:17 | NUR ---
HS MEDICATIONS GIVEN TO INCLUDE MORPHINE 4 MG IVP PER PT REQUEST FOR PAIN AT LEVEL 8/10. WILL MONITOR FOR EFFECTIVENESS.
[2018-12-17 21:22] VITALS: BP 128/78
[2018-12-18 01:15] VITALS: BP 152/84
[2018-12-18 04:28] LABS: BASOPHILS 0.2 % (0-2); EOSINOPHILS 2.4 % (0-7); HEMOGLOBIN 10.3 g/dL (13.5-17.5); IMMATURE GRANULOCYTES 0.2 % (0-5); LYMPHOCYTES 17.6 % (15-50); MCH 28.1 pg (26.0-34.0); MCHC 32.2 g/dL (31.0-37.0); MCV 87.4 fL (80.0-100.0); MEAN PLATELET VOLUME 9.2 fL (7.4-10.4); MONOCYTES 13.8 % (2-11); NEUTROPHILS 65.8 % (40-80); PLATELET COUNT 417 10x3/uL (130-400); RBC 3.66 10x6/uL (4.20-6.10); RDW 14.6 % (11.5-14.5); WBC 10.1 10x3/uL (4.8-10.8)
[2018-12-18 04:41] LABS: CALC OSMOLALITY 275 mosm/kg (275-300); CALCIUM 8.8 mg/dL (8.5-10.1); CARBON DIOXIDE 31.2 mmol/L (21.0-32.0); CHLORIDE - SERUM 102 mmol/L (98-107); CREATININE - SERUM 0.8 mg/dL (0.6-1.3); GLUCOSE 107 mg/dL (74-106); MAGNESIUM - SERUM 1.9 mg/dL (1.8-2.4); POTASSIUM - SERUM 3.8 mmol/L (3.5-5.1); SODIUM 138 mmol/L (136-145); UREA NITROGEN 12 mg/dL (7-18); eGFR NON AFRICAN AMERICAN > 90 mL/min (90-120)
[2018-12-18 06:04] VITALS: BP 146/74
--- NOTE | 2018-12-18 08:31 | NUR ---
UP IN BED EATING BREAKFAST. DENIES ANY NEEDS AT THIS TIME.
[2018-12-18 08:40] VITALS: BP 141/80
--- NOTE | 2018-12-18 10:42 | NUR ---
PT RESTING IN BED REPORTS PAIN 01/30. ADMINISTERED MORPHINE PER DR.S ORDERS. WILL CONTINUE TO MONITOR.
--- NOTE | 2018-12-18 11:10 | NUR ---
PT RESTING IN BED REPORTS PAIN DOWN TO 6/10. DENIES NEEDS AT THIS TIME.
[2018-12-18 12:03] VITALS: BP 135/78
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
--- NOTE | 2018-12-18 14:52 | NUR ---
LAYING IN BED WATCHING TV. REPORTS PAIN 8/10 GAVE MORPHINE PER DRS ORDERS. DENIES NEEDS AT THIS TIME. WILL CONTINUE TO MONITOR.
--- NOTE | 2018-12-18 15:46 | NUR ---
RESTING IN BED WITH EYE CLOSED, WAKES EASILY. REPORTS PAIN DOWN TO 6/10, DENIES ANY NEEDS AT THIS TIME.
[2018-12-18 16:39] VITALS: BP 132/77
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
--- NOTE | 2018-12-18 19:00 | NUR ---
REPORT RECEIVED AND CARE OF PT ASSUMED. PT LYING IN SUPINE POSITION GETTING IV RE-SITED AT THIS TIME. DRESSING ON LEFT FOOT INTACT. WILL MONITOR FOR NEEDS.
[2018-12-18 20:00] VITALS: BP 137/78
--- NOTE | 2018-12-18 22:18 | NUR ---
HS MEDICATIONS GIVEN TO INCLUDE MORPHINE 4 MG IVP PER REQUEST FOR PAIN. WILL MONITOR FOR EFFECTIVENESS.
[2018-12-19] VITALS: BP 90/50
[2018-12-19 04:00] VITALS: BP 85/61
[2018-12-19 07:52] LABS: BASOPHILS 0.4 % (0-2); HEMATOCRIT 33.1 % (42.0-54.0); HEMOGLOBIN 10.7 g/dL (13.5-17.5); IMMATURE GRANULOCYTES 0.3 % (0-5); LYMPHOCYTES 16.3 % (15-50); MCH 28.4 pg (26.0-34.0); MCHC 32.3 g/dL (31.0-37.0); MCV 87.8 fL (80.0-100.0); MEAN PLATELET VOLUME 10.2 fL (7.4-10.4); MONOCYTES 13.1 % (2-11); NEUTROPHILS 67.9 % (40-80); PLATELET COUNT 479 10x3/uL (130-400); RBC 3.77 10x6/uL (4.20-6.10); RDW 14.8 % (11.5-14.5); WBC 11.1 10x3/uL (4.8-10.8)
[2018-12-19 08:11] LABS: ALKALINE PHOSPHATASE 64 U/L (46-116); ALT (SGPT) 15 U/L (10-68); BILIRUBIN - TOTAL 0.18 mg/dL (0.2-1.3); CALC OSMOLALITY 275 mosm/kg (275-300); CALCIUM 8.6 mg/dL (8.5-10.1); CARBON DIOXIDE 30.2 mmol/L (21.0-32.0); CHLORIDE - SERUM 102 mmol/L (98-107); CREATININE - SERUM 0.7 mg/dL (0.6-1.3); GLUCOSE 105 mg/dL (74-106); POTASSIUM - SERUM 3.6 mmol/L (3.5-5.1); SODIUM 138 mmol/L (136-145); UREA NITROGEN 12 mg/dL (7-18); eGFR NON AFRICAN AMERICAN > 90 mL/min (90-120)
[2018-12-19 08:43] VITALS: BP 131/77
--- NOTE | 2018-12-19 09:14 | NUR ---
AAOX4. CO OF PAIN 03/02 TO FOOT. MORPHINE GIVEN PER MD ORDER. NO S/S OF ACUTE DISTRESS. CL IN PLACE.
[2018-12-19 12:32] VITALS: BP 127/74
[2018-12-19 16:59] VITALS: BP 144/84
--- NOTE | 2018-12-19 18:52 | NUR ---
PT RESTING IN BED. NO S/S OF ACUTE DISTRESS. CL IN PLACE.
--- NOTE | 2018-12-19 19:00 | NUR ---
REPORT RECEIVED AND CARE OF PT ASSUMED. PT LYING IN SUPINE POSITION WITH EYES CLOSED. DRESSING ON LEFT FOOT NEEDS CHANGED. LEFT MIDLINE SALINE LOCKED. IV IN RIGHT WRIST PATENT WITH NS INFUSING AT 100 ML / HR. WILL MONITOR FOR NEEDS.
[2018-12-19 20:40] VITALS: BP 137/69
--- NOTE | 2018-12-19 20:40 | NUR ---
HS MEDICATIONS GIVEN TO INCLUDE MORPHINE 4 MG IVP FOR C/O PAIN AT LEVEL 8/10. WILL CONTINUE TO MONTITOR FOR NEEDS.
--- NOTE | 2018-12-19 21:15 | NUR ---
CHANGED DRESSING ON LEFT FOOT. REMOVED OLD DRESSING AND 36" OF IODIFORM PACKING FROM WOUND...ALL SOAKED WITH BLOODY DRAINAGE. FLUSHED WOUND WELL WITH SALINE AND PATTED DRY WITH 4X4 GAUZE. PACKED WOUND WITH 36" OF IODIFORM DRESSING USING WOODEN END OF COTTON TIPPED APPLICATOR. COVERED WITH 4X4'S, THEN WITH ABD PAD, AND WRAPPED ENTIRE FOOT WITH KERLEX GAUZE. PT TOLERATED WELL. SIGNED AND DATED DRESSING WELL AT NOTED HOW LONG PACKING WAS. WILL CONTINUE TO MONITOR FOR NEEDS.
[2018-12-20 00:56] VITALS: BP 142/83
[2018-12-20 05:44] VITALS: BP 149/82
[2018-12-20 06:45] LABS: BASOPHILS 0.2 % (0-2); EOSINOPHILS 2.3 % (0-7); HEMATOCRIT 32.7 % (42.0-54.0); HEMOGLOBIN 10.5 g/dL (13.5-17.5); IMMATURE GRANULOCYTES 0.2 % (0-5); LYMPHOCYTES 19.9 % (15-50); MCH 28.2 pg (26.0-34.0); MCHC 32.1 g/dL (31.0-37.0); MCV 87.7 fL (80.0-100.0); MONOCYTES 12.4 % (2-11); PLATELET COUNT 492 10x3/uL (130-400); RBC 3.73 10x6/uL (4.20-6.10); RDW 14.6 % (11.5-14.5); WBC 9.7 10x3/uL (4.8-10.8)
[2018-12-20 07:15] LABS: ALKALINE PHOSPHATASE 62 U/L (46-116); ALT (SGPT) 15 U/L (10-68); CALC OSMOLALITY 275 mosm/kg (275-300); CALCIUM 8.6 mg/dL (8.5-10.1); CARBON DIOXIDE 29.7 mmol/L (21.0-32.0); CHLORIDE - SERUM 102 mmol/L (98-107); CREATININE - SERUM 0.7 mg/dL (0.6-1.3); GLUCOSE 100 mg/dL (74-106); POTASSIUM - SERUM 3.6 mmol/L (3.5-5.1); PROTEIN - SERUM 6.9 g/dL (6.4-8.2); SODIUM 138 mmol/L (136-145); UREA NITROGEN 12 mg/dL (7-18); eGFR NON AFRICAN AMERICAN > 90 mL/min (90-120)
--- NOTE | 2018-12-20 07:31 | NUR ---
PT ALERT X 4. BREATH SOUNDS CLEAR BILAT. IV TO RIGHT WRIST, PATENT, DRESSING CDI. PICC LINE TO LEFT UPPER ARM, SALINE LOCKED. PT REPORTING PAIN OF 7/10, WILL MONITOR. DRESSING TO LEFT FOOT CDI. BED LOW, CALL LIGHT IN REACH. NO OTHER NEEDS AT THIS TIME.
[2018-12-20 10:25] VITALS: BP 139/63
[2018-12-20 15:42] VITALS: BP 142/64
--- NOTE | 2018-12-20 19:00 | NUR ---
REPORT RECEIVED AND CARE OF PT ASSUMED. PT LYING IN SUPINE POSITION WITH EYES CLOSED. LAST PAIN MED GIVEN AT 1715. DRESSING ON LEFT FOOT NEEDS CHANGED. LEFT MIDLINE PATENT WITH NS INFUSING AT 100 ML /HR. WILL MONITOR FOR NEEDS.
--- NOTE | 2018-12-20 21:03 | NUR ---
HS MEDICATIONS GIVEN TO INCLUDE MORPHINE PER PRN ORDER. WILL CONTINUE TO MONITOR FOR NEEDS.
[2018-12-20 21:22] VITALS: BP 141/71
--- NOTE | 2018-12-20 21:30 | NUR ---
CHANGED DRESSING ON LEFT FOOT PER ORDER. PACKED APPROX 36 INCHES OF IODOFORM INTO WOUND.
[2018-12-21 01:06] VITALS: BP 124/53
[2018-12-21 04:56] VITALS: BP 120/78
[2018-12-21 05:13] LABS: BASOPHILS 0.4 % (0-2); EOSINOPHILS 1.9 % (0-7); HEMATOCRIT 32.8 % (42.0-54.0); HEMOGLOBIN 10.8 g/dL (13.5-17.5); IMMATURE GRANULOCYTES 0.2 % (0-5); MCH 28.7 pg (26.0-34.0); MCHC 32.9 g/dL (31.0-37.0); MCV 87.2 fL (80.0-100.0); MEAN PLATELET VOLUME 9.4 fL (7.4-10.4); MONOCYTES 13.5 % (2-11); PLATELET COUNT 493 10x3/uL (130-400); RBC 3.76 10x6/uL (4.20-6.10); RDW 14.7 % (11.5-14.5); WBC 10.1 10x3/uL (4.8-10.8)
[2018-12-21 05:32] LABS: ALKALINE PHOSPHATASE 64 U/L (46-116); ALT (SGPT) 14 U/L (10-68); BILIRUBIN - TOTAL 0.16 mg/dL (0.2-1.3); CALC OSMOLALITY 277 mosm/kg (275-300); CALCIUM 8.8 mg/dL (8.5-10.1); CARBON DIOXIDE 30.1 mmol/L (21.0-32.0); CHLORIDE - SERUM 102 mmol/L (98-107); CREATININE - SERUM 0.7 mg/dL (0.6-1.3); GLUCOSE 101 mg/dL (74-106); POTASSIUM - SERUM 3.8 mmol/L (3.5-5.1); SODIUM 139 mmol/L (136-145); UREA NITROGEN 13 mg/dL (7-18); eGFR NON AFRICAN AMERICAN > 90 mL/min (90-120)
[2018-12-21 10:15] VITALS: BP 143/80
[2018-12-21 12:28] VITALS: BP 156/76
--- NOTE | 2018-12-21 14:01 | NUR ---
NUTRITION F//U CHART REVIEWED, PT VISIT. TOLERATING REG DIET WITH GOOD INTAKE RECENT MEALS. WILL CONTINUE TO PROVIDE DIET, MONITOR INTAKE. RD FOLLOWING
[2018-12-21 17:30] VITALS: BP 148/73
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
[2018-12-21 20:31] VITALS: BP 134/83
--- NOTE | 2018-12-21 21:00 | NUR ---
PT RESTING IN BED. ALERT AND ORIENTED NO SIGNS OF DISTRESS. BREATHING EVEN AND UNLABORED. PT STATES NO PROBLEMS AT THIS TIME. BED LOWERED AND LOCKED. CALL LIGHT IN REACH. WILL CONTINUE PLAN OF CARE.
[2018-12-22 00:15] VITALS: BP 134/69
[2018-12-22 05:08] VITALS: BP 160/82
[2018-12-22 06:30] LABS: BASOPHILS 0.4 % (0-2); EOSINOPHILS 1.8 % (0-7); HEMATOCRIT 32.4 % (42.0-54.0); HEMOGLOBIN 10.5 g/dL (13.5-17.5); IMMATURE GRANULOCYTES 0.2 % (0-5); LYMPHOCYTES 16.3 % (15-50); MCH 28.3 pg (26.0-34.0); MCHC 32.4 g/dL (31.0-37.0); MCV 87.3 fL (80.0-100.0); MEAN PLATELET VOLUME 9.7 fL (7.4-10.4); MONOCYTES 12.6 % (2-11); NEUTROPHILS 68.7 % (40-80); PLATELET COUNT 480 10x3/uL (130-400); RBC 3.71 10x6/uL (4.20-6.10); RDW 14.7 % (11.5-14.5); WBC 9.7 10x3/uL (4.8-10.8)
--- NOTE | 2018-12-22 06:44 | NUR ---
I have reviewed this patient and I concur with the Shift Assessment completed by the Licensed Practical Nurse today this shift.
[2018-12-22 07:01] LABS: ALKALINE PHOSPHATASE 70 U/L (46-116); ALT (SGPT) 15 U/L (10-68); BILIRUBIN - TOTAL 0.15 mg/dL (0.2-1.3); CALC OSMOLALITY 275 mosm/kg (275-300); CALCIUM 8.9 mg/dL (8.5-10.1); CARBON DIOXIDE 29.9 mmol/L (21.0-32.0); CHLORIDE - SERUM 102 mmol/L (98-107); CREATININE - SERUM 0.8 mg/dL (0.6-1.3); GLUCOSE 102 mg/dL (74-106); POTASSIUM - SERUM 3.7 mmol/L (3.5-5.1); SODIUM 138 mmol/L (136-145); UREA NITROGEN 12 mg/dL (7-18); eGFR NON AFRICAN AMERICAN > 90 mL/min (90-120)
[2018-12-22 09:13] VITALS: BP 146/82
[2018-12-22 12:29] VITALS: BP 114/78
--- NOTE | 2018-12-22 12:52 | NUR ---
PT LYING IN BED WATCHING TV. DENIES NEEDS AT THIS TIME. CL IN REACH. SIDE RIAILS UP X3 FOR PT SAFETY. BED IN LOWEST POSITION.
[2018-12-22 16:14] VITALS: BP 131/71
--- NOTE | 2018-12-22 20:00 | NUR ---
ALERT RESTING IN BED NO APPARENT DISTESS, DRESSING INTACT TO LEFT FOOT, SEE SHIFT ASSESSMENT, CALL LIGHT IN REACH
[2018-12-22 20:24] VITALS: BP 133/77
[2018-12-23 00:28] VITALS: BP 138/70
[2018-12-23 04:45] VITALS: BP 144/73
[2018-12-23 04:53] LABS: BASOPHILS 0.4 % (0-2); EOSINOPHILS 2.4 % (0-7); HEMATOCRIT 34.2 % (42.0-54.0); HEMOGLOBIN 10.9 g/dL (13.5-17.5); IMMATURE GRANULOCYTES 0.3 % (0-5); LYMPHOCYTES 21.3 % (15-50); MCH 27.9 pg (26.0-34.0); MCHC 31.9 g/dL (31.0-37.0); MCV 87.5 fL (80.0-100.0); MEAN PLATELET VOLUME 9.6 fL (7.4-10.4); MONOCYTES 12.8 % (2-11); NEUTROPHILS 62.8 % (40-80); PLATELET COUNT 493 10x3/uL (130-400); RBC 3.91 10x6/uL (4.20-6.10); RDW 14.6 % (11.5-14.5); WBC 8.9 10x3/uL (4.8-10.8)
[2018-12-23 05:08] LABS: ALKALINE PHOSPHATASE 71 U/L (46-116); ALT (SGPT) 15 U/L (10-68); BILIRUBIN - TOTAL 0.17 mg/dL (0.2-1.3); CALC OSMOLALITY 267 mosm/kg (275-300); CARBON DIOXIDE 31.8 mmol/L (21.0-32.0); CHLORIDE - SERUM 101 mmol/L (98-107); CREATININE - SERUM 0.7 mg/dL (0.6-1.3); GLUCOSE 101 mg/dL (74-106); POTASSIUM - SERUM 3.7 mmol/L (3.5-5.1); PROTEIN - SERUM 7.1 g/dL (6.4-8.2); SODIUM 134 mmol/L (136-145); UREA NITROGEN 13 mg/dL (7-18); eGFR NON AFRICAN AMERICAN > 90 mL/min (90-120)
--- NOTE | 2018-12-23 07:58 | NUR ---
ALERT AND ORIENTED X 3. LUNGS CLEAR BILATERALLY IN ALL MOMIN. HEART SOUNDS S1 AND S2 HEARD IN ALL MOMIN. BOWEL SOUNDS ACTIVE X 4. ISATU MIDLINE PATENT WITHOUT REDNESS. DRSG TO LEFT FOOT C/D/I. WILL CHANGE DRSG TODAY. DENIES PAIN DENIES NEEDS. BED LOW. CALL TORRES AND PERSONAL ITEMS IN REACH. WILL CONTINUE TO MONITOR.
[2018-12-23 09:36] VITALS: BP 154/84
--- NOTE | 2018-12-23 10:15 | NUR ---
DRSG CHANGED TO LEFT FOOT PER ORDER. NO SIGNS / SYMPTOMS INFECTION PRESENT. DENIES PAIN.
--- NOTE | 2018-12-23 12:34 | NUR ---
SITTING IN BED EATING LUNCH. ALL MACIAS REQUESTED AND GIVEN. REQUESTED TO SPEAK WITH SCIENTIST PROPAGATOR. SCIENTIST PROPAGATOR MET WITH PATIENT. DENIES FURTHER NEEDS.
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
[2018-12-23] MEDS ORDERED: ZYVOX600 MG PO (12:53)
[2018-12-23] MEDS ORDERED: ROBAXIN500 MG PO (12:53)
[2018-12-23] MEDS ORDERED: NEURONTIN 300300 MG PO (12:53)
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
[2018-12-23 13:04] VITALS: BP 126/78
--- NOTE | 2018-12-23 15:46 | NUR ---
DISCHARGE EDUCATION PROVIDED BOTH WRITTEN AND VERBAL. VERBALIZED UNDERSTANDING. DENIES FURTHER QUESTIONS. [facility] REMOVED WITH TIP INTACT. PATIENT DRESSED AND READY. DENIES FURTHER NEEDS. [facility] BUS CALLED FOR PATIENT.
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
== END 2018-12-23 16:00 | disposition home or self-care (01) | DRG 503 ==
LOC: D.ER 13:13 → D.MS 16:33
PROVIDERS: Family Medicine; ADMIT Internal Medicine Nephrology; ATTEND Internal Medicine Nephrology
PROC: 0HBNXZZ Excision of Left Foot Skin, External Approach (ICD-10-PCS; principal; 2018-12-12)
PROC: 0QTP0ZZ Resection of Left Metatarsal, Open Approach (ICD-10-PCS; 2018-12-15)
DX: M86.172 Other acute osteomyelitis, left ankle and foot (principal); A41.89 Other specified sepsis; A41.01 Sepsis due to Methicillin susceptible Staphylococcus aureus; F17.213 Nicotine dependence, cigarettes, with withdrawal; E87.1 Hypo-osmolality and hyponatremia; T81.49XA Infection following a procedure, other surgical site, initial encounter; D64.9 Anemia, unspecified; Z16.30 Resistance to unspecified antimicrobial drugs; L97.522 Non-pressure chronic ulcer of other part of left foot with fat layer exposed

== ENCOUNTER 2019-01-11 21:05 | Observation (INO) | payer MEDICAID ==
[~2019-01-11] VITALS: Ht 182.9 cm; Wt 72.7 kg
[~2019-01-11 21:05] MED LIST changes: +NEURONTIN 300300 MG PO; +ROBAXIN500 MG PO; +ZYVOX600 MG PO
[2019-01-11 21:55] LABS: BASOPHILS 0.5 % (0-2); HEMATOCRIT 36.1 % (42.0-54.0); IMMATURE GRANULOCYTES 0.2 % (0-5); LYMPHOCYTES 27.3 % (15-50); MCH 28.4 pg (26.0-34.0); MCHC 33.2 g/dL (31.0-37.0); MCV 85.5 fL (80.0-100.0); MEAN PLATELET VOLUME 8.7 fL (7.4-10.4); MONOCYTES 14.7 % (2-11); NEUTROPHILS 55.3 % (40-80); RBC 4.22 10x6/uL (4.20-6.10); RDW 14.7 % (11.5-14.5); WBC 8.4 10x3/uL (4.8-10.8)
[2019-01-11 22:03] LABS: APTT 31.7 SECONDS (22.8-39.4); INR 1.1 (0.85-1.17); PROTIME 13.7 SECONDS (11.6-15.0)
--- NOTE | 2019-01-11 22:03 | NUR ---
REPORTS PAIN IS DOWN TO 4 AFTER 2ND DOSE OF NITRO. RESP EVEN AND UNLABORED
[2019-01-11 22:09] LABS: ALBUMIN 2.9 g/dL (3.4-5.0); ALKALINE PHOSPHATASE 129 U/L (46-116); ALT (SGPT) 13 U/L (10-68); BILIRUBIN - TOTAL 0.45 mg/dL (0.2-1.3); CALC OSMOLALITY 273 mosm/kg (275-300); CALCIUM 8.4 mg/dL (8.5-10.1); CARBON DIOXIDE 28.4 mmol/L (21.0-32.0); CHLORIDE - SERUM 102 mmol/L (98-107); CREATININE - SERUM 0.7 mg/dL (0.6-1.3); GLUCOSE 95 mg/dL (74-106); POTASSIUM - SERUM 3.7 mmol/L (3.5-5.1); PROTEIN - SERUM 7.6 g/dL (6.4-8.2); SODIUM 137 mmol/L (136-145); UREA NITROGEN 13 mg/dL (7-18); eGFR NON AFRICAN AMERICAN > 90 mL/min (90-120)
[2019-01-11 22:13] LABS: PLATELET COUNT 264 10x3/uL (130-400)
[2019-01-11 22:20] LABS: CKMB 0.6 U/L (0.0-3.6); CREATINE KINASE 44 UL (21-232); TROPONIN-I < 0.017 ng/mL (0.000-0.060)
--- NOTE | 2019-01-11 23:57 | NUR ---
PATIENT ARRIVED FROM ER VIA WHEELCHAIR. PATIENT IS ALERT AND ORIENTED. RESPIRATIONS ARE EVEN AND UNLABORED. NO S/S OF DISTRESS. NO C/O PAIN. CALL LIGHT WITHIN REACH. WILL CPOC.
[2019-01-12] VITALS: BP 145/81
[2019-01-12] MEDS ORDERED: NEO-POLY-DEXAM3.5 GM EACH EYE (00:35)
[2019-01-12] MEDS ORDERED: ROBAXIN500 MG PO (00:36)
[2019-01-12] MEDS ORDERED: NEURONTIN 300300 MG PO (00:36)
[2019-01-12] MEDS ORDERED: ZYVOX600 MG PO (00:37)
[2019-01-12 00:47] VITALS: BP 145/81; Ht 182.9 cm; Wt 72.7 kg
[2019-01-12 02:30] LABS: CKMB 0.8 U/L (0.0-3.6); CREATINE KINASE 47 UL (21-232); TROPONIN-I < 0.017 ng/mL (0.000-0.060)
[2019-01-12 04:00] VITALS: BP 124/58
--- NOTE | 2019-01-12 04:35 | NUR ---
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 PATIENT STATES THAT HE IS SUPPOSE TO GO SEE DR. MARTE ON Friday01/13/2019 TO HAVE SUTURES REMOVED.
[2019-01-12 09:02] LABS: CKMB 0.7 U/L (0.0-3.6); CREATINE KINASE 44 UL (21-232)
[2019-01-12 09:04] LABS: TROPONIN-I < 0.017 ng/mL (0.000-0.060)
--- NOTE | 2019-01-12 10:01 | NUR ---
INITIATED CONTACT ISOLATION PER TATA.
[2019-01-12 14:23] LABS: CKMB 0.5 U/L (0.0-3.6); CREATINE KINASE 57 UL (21-232)
[2019-01-12 14:24] LABS: TROPONIN-I < 0.017 ng/mL (0.000-0.060)
--- NOTE | 2019-01-12 16:16 | NUR ---
ALERT AND ORIENTED X4. SITTING UP ON SIDE OF BED. DISCHARGE INSTRUCTIONS GIVEN VERBALLY AND WRITTEN. DISCHARGE PAPERS SIGNED ON CHART. WAITING FOR [facility] FOR TRANSPORTATION.
--- NOTE | 2019-01-12 16:28 | MORECARE ---
CASE MANAGEMENT DISCHARGE SUMMARY PATIENT: MEHNAZ LOVELACE JR UNIT: [id number] ADM DATE: 01/11/19 AGE: 58 : 60 SEX: M ROOM/BED: D.2111 AUTHOR: MAN VICENTE PHYSICIAN: REFERRING PHYSICIAN: JOSÉ WASHINGTON M.D. DATE OF SERVICE: 01/12/19 Discharge Plan Patient Name: MEHNAZ LOVELACE Facility: [facility]:[place] : 1960 Planned Disposition: Home Anticipated Discharge Date: 01/12/19 Discharge Date: Expected LOS: 1 Initial Reviewer: [email or web address] Initial Review Date: 01/12/2019 Generated: 01/12/19 5:28 pm Patient Name: MEHNAZ LOVELACE Page 28186 at 1628 All edits/amendments must be made on the electronic document DICTATION DATE: 01/12/191627 CITY ENGINEER: APOLINAR 01/12/191627 RPT#: [id number] DC DATE: STATUS: ADM IN [facility] [address] [place] [address] END OF REPORT
--- NOTE | 2019-01-12 16:36 | MORECARE ---
CASE MANAGEMENT DISCHARGE SUMMARY PATIENT: MEHNAZ LOVELACE JR UNIT: [id number] ADM DATE: 01/11/19 AGE: 58 : 60 SEX: M ROOM/BED: D.2111 AUTHOR: JULES,DOC PHYSICIAN: REFERRING PHYSICIAN: JOSÉ WASHINGTON M.D. DATE OF SERVICE: 01/12/19 Discharge Plan Patient Name: MEHNAZ LOVELACE Facility: [facility]:[place] : 1960 Planned Disposition: Home Anticipated Discharge Date: 01/12/19 Discharge Date: Expected LOS: 1 Initial Reviewer: [email or web address] Initial Review Date: 01/12/2019 Generated: 01/12/19 5:36 pm Comments DCP- Discharge Planning Updated by [id number]: Dwain Wiseman on 01/12/19 3:[address] Patient Name: MEHNAZ LOVELACE Admission Status: ER Accout number: [id number] Admission Date: 01-11-2019 : 1960 Admission Diagnosis: Attending: JOSÉ [place] Current LOS: 1 Anticipated DC Date: 01-12-2019 Planned Disposition: Home Primary Insurance: MEDICAID [place] Discharge Planning Comments: CM RECEIVED REQUEST FROM BEDSIDE NURSE TO ASSIST WITH TRANSPORTATION. CM MET WITH PT IN ROOM TO DISCUSS DISCHARGE PLANNING AND NEEDS. PT REPORTS LIVING AT HOME INDEPENDENTLY AND ALONE IN [place] [address] [place]. PT STATES HE HAS NO ELECTRICITY AND HAULS WATER TO HIS CAMPER. PT REPORTS FEELING SAFE AT HOME. PT HAS A CANE AND NO MEDICAL EQUIPMENT PROVIDER PREFERENCE. PT HAS NO OUTSIDE SERVICES ASSISTING IN THE HOME. PT REPORTS THAT HE HAS BEEN FOLLOWING UP WITH DR. MARTE FOR HIS FOOT CARE NEEDS. CM DISCUSSED AVAILABILITY OF HOME HEALTH, REHAB SERVICES AND MEDICAL EQUIPMENT. PT DENIES DISCHARGE NEEDS OTHER THAN NOT HAVING A RIDE HOME. PT HAS USED [employer] TRANSPORTATION IN THE PAST. CM CALLED [employer] [facility], , SPOKE TO LUCIANA AND ARRANGE LASER SET UP OPERATOR FOR SOON POSSIBLE TODAY. CONFIRMATION NUMBER [id number]. CM NOTIFIED PT, BEDSIDE NURSE AND BEATER BOSS. [employer] ARCHITECT SHOULD CALL UNIT PHONE TO NOTIFY WHEN OUT FRONT TO LASER SET UP OPERATOR PT. Supervisor Looping: Dwain Wiseman DCPIA - Discharge Planning Initial Assessment Updated by [id number]: Dwain Wiseman on 01/12/19 4:29 pm * Is the patient Alert and Oriented? Yes * How many steps to enter\exit or inside your home? * PCP NONE [facility]ERR[facility] TO [facility] * Pharmacy [facility] AT [facility]. * Preadmission Environment Home Alone * ADLs Independent * Equipment Cane * Other Equipment CANE * List name and contact numbers for known caregivers / representatives who currently or will assist patient after discharge: ARIEL EAST, SISTER, * Verbal permission to speak to the caregivers and representatives has been obtained from the patient. N/A * Community resources currently utilized None * Please name any agencies selected above. NONE * Additional services required to return to the preadmission environment? No * Can the patient safely return to the preadmission environment? Yes * Has this patient been hospitalized within the prior 30 days at any hospital? Yes Last DP export: 01/12/19 3:28 p Patient Name: MEHNAZ LOVELACE Page [phone] at 1636 All edits/amendments must be made on the electronic document DICTATION DATE: 01/12/19 1636 AUTOMATIC EQUIPMENT TECHNICIAN: APOLINAR 01/12/19 1636 RPT#: [id number] DC DATE: STATUS: ADM IN [facility] [address] [place] [address] END OF REPORT
== END 2019-01-12 18:16 | disposition home or self-care (01) ==
LOC: D.ER 21:05 → D.M2 22:44 → OBSVTIME 22:44 → D.M2 22:44
PROVIDERS: Emergency Medicine; ADMIT Internal Medicine Cardiovascular Disease; ATTEND Internal Medicine Cardiovascular Disease
DX: I20.0 Unstable angina (principal); I10 Essential (primary) hypertension; F17.200 Nicotine dependence, unspecified, uncomplicated; Z89.421 Acquired absence of other right toe(s)

== ENCOUNTER 2019-01-29 20:53 | Emergency (ER) | payer MEDICAID ==
[~2019-01-29] VITALS: Ht 182.9 cm; Wt 74.8 kg
[~2019-01-29 20:53] MED LIST changes: +NEO-POLY-DEXAM3.5 GM EACH EYE
[2019-01-29 20:54] VITALS: Ht 182.9 cm; Wt 74.8 kg
[2019-01-29 21:42] LABS: BASOPHILS 0.3 % (0-2); EOSINOPHILS 1.3 % (0-7); HEMATOCRIT 35.8 % (42.0-54.0); HEMOGLOBIN 11.8 g/dL (13.5-17.5); IMMATURE GRANULOCYTES 0.1 % (0-5); LYMPHOCYTES 13.5 % (15-50); MCH 28.2 pg (26.0-34.0); MCV 85.6 fL (80.0-100.0); MEAN PLATELET VOLUME 8.9 fL (7.4-10.4); NEUTROPHILS 70.8 % (40-80); RBC 4.18 10x6/uL (4.20-6.10); WBC 10.4 10x3/uL (4.8-10.8)
[2019-01-29 21:43] LABS: PLATELET COUNT 368 10x3/uL (130-400)
[2019-01-29 21:56] LABS: ALBUMIN 2.7 g/dL (3.4-5.0); ALKALINE PHOSPHATASE 128 U/L (46-116); BILIRUBIN - TOTAL 0.17 mg/dL (0.2-1.3); CALC OSMOLALITY 272 mosm/kg (275-300); CALCIUM 8.9 mg/dL (8.5-10.1); CARBON DIOXIDE 26.8 mmol/L (21.0-32.0); CHLORIDE - SERUM 102 mmol/L (98-107); CREATININE - SERUM 0.6 mg/dL (0.6-1.3); GLUCOSE 118 mg/dL (74-106); POTASSIUM - SERUM 4.2 mmol/L (3.5-5.1); PROTEIN - SERUM 7.6 g/dL (6.4-8.2); SODIUM 136 mmol/L (136-145); UREA NITROGEN 13 mg/dL (7-18); eGFR NON AFRICAN AMERICAN > 90 mL/min (90-120)
[2019-01-29 22:00] LABS: ALT (SGPT) 5 U/L (10-68)
[2019-01-29 22:20] LABS: APPEARANCE CLEAR (CLEAR); BILIRUBIN NEGATIVE (NEGATIVE); COLOR YELLOW (YELLOW); GLUCOSE NEGATIVE (NEGATIVE); KETONE NEGATIVE (NEGATIVE); NITRITE NEGATIVE (NEGATIVE); PROTEIN NEGATIVE (NEGATIVE); SPECIFIC GRAVITY 1.015 (1.005-1.020); UROBILINOGEN NORMAL (NORMAL)
[2019-01-29 22:21] LABS: RED CELLS - URINE 0-5 /hpf (0-5); WHITE CELLS - URINE 0-5 /hpf (0-5)
[2019-01-29 22:22] LABS: BACTERIA FEW /hpf (NONE SEEN)
[2019-01-29] MEDS ORDERED: ACETAMINOPHEN500 M1 PO (22:44)
[2019-01-29] MEDS ORDERED: CYCLOBENZAPRINE10 MG PO (22:44)
[2019-01-29] MEDS ORDERED: IBUPROFEN800 MG PO (22:44)
[2019-01-30 00:40] VITALS: BP 168/90
== END 2019-01-30 00:15 | disposition home or self-care (01) ==
LOC: D.ER 20:53
PROVIDERS: Family Medicine
DX: M54.5 Low back pain (principal); M79.18 Myalgia, other site; W10.8XXA Fall (on) (from) other stairs and steps, initial encounter; Y93.89 Activity, other specified; Y92.89 Other specified places as the place of occurrence of the external cause

== ENCOUNTER 2019-02-15 20:09 | Inpatient (IN) | payer MEDICAID ==
[~2019-02-15] VITALS: Ht 182.9 cm; Wt 85.1 kg
[~2019-02-15 20:09] MED LIST changes: +ACETAMINOPHEN500 M1 PO; +CYCLOBENZAPRINE10 MG PO; +IBUPROFEN800 MG PO
[2019-02-15 21:53] LABS: BASOPHILS 0.1 % (0-2); EOSINOPHILS 0.2 % (0-7); HEMATOCRIT 25.5 % (42.0-54.0); HEMOGLOBIN 8.8 g/dL (13.5-17.5); IMMATURE GRANULOCYTES 0.4 % (0-5); LYMPHOCYTES 11.9 % (15-50); MCH 27.8 pg (26.0-34.0); MCHC 34.5 g/dL (31.0-37.0); MCV 80.4 fL (80.0-100.0); MEAN PLATELET VOLUME 8.7 fL (7.4-10.4); MONOCYTES 8.9 % (2-11); NEUTROPHILS 78.5 % (40-80); PLATELET COUNT 413 10x3/uL (130-400); RBC 3.17 10x6/uL (4.20-6.10); RDW 14.5 % (11.5-14.5)
[2019-02-15 22:20] LABS: ALBUMIN 2.8 g/dL (3.4-5.0); ALKALINE PHOSPHATASE 101 U/L (46-116); ALT (SGPT) 14 U/L (10-68); BILIRUBIN - TOTAL 0.25 mg/dL (0.2-1.3); CALC OSMOLALITY 275 mosm/kg (275-300); CALCIUM 9.1 mg/dL (8.5-10.1); CARBON DIOXIDE 28.6 mmol/L (21.0-32.0); CHLORIDE - SERUM 98 mmol/L (98-107); CREATININE - SERUM 0.7 mg/dL (0.6-1.3); GLUCOSE 92 mg/dL (74-106); POTASSIUM - SERUM 3.5 mmol/L (3.5-5.1); PROTEIN - SERUM 8.2 g/dL (6.4-8.2); SODIUM 135 mmol/L (136-145); UREA NITROGEN 30 mg/dL (7-18); eGFR NON AFRICAN AMERICAN > 90 mL/min (90-120)
[2019-02-15 22:29] LABS: AMYLASE - SERUM 32 U/L (25-115); CKMB 1.5 U/L (0.0-3.6); CREATINE KINASE 52 UL (21-232); LIPASE 94 U/L (73-393)
[2019-02-15 22:30] LABS: TROPONIN-I < 0.017 ng/mL (0.000-0.060)
[2019-02-15 22:35] LABS: APTT 32.5 SECONDS (22.8-39.4); INR 1.08 (0.85-1.17); PROTIME 13.5 SECONDS (11.6-15.0)
[2019-02-15 23:59] LABS: % SATURATION 10 % (15-55); IRON 22 ug/dl (35-150); TOTAL IRON BIND CAPACITY 212 ug/dl (260-445); UNSAT IRON BIND CAPACITY 190 ug/dl (150-375)
[2019-02-16] MEDS ORDERED: ZYVOX600 MG PO (01:07)
[2019-02-16] MEDS ORDERED: NEURONTIN 300300 MG PO (01:07)
[2019-02-16] MEDS ORDERED: ROBAXIN500 MG PO (01:07)
--- NOTE | 2019-02-16 01:24 | NUR ---
WENT TO GET PRBC FROM BLOOD BANK. WAS TOLD THAT SHE NEEDED BLOOD DRAWN FOR COMFIRMATION AND WILL CALL WE COMPLETE.
--- NOTE | 2019-02-16 01:29 | NUR ---
UPON ARRIVAL TO THE UNIT PATIENT WAS GIVEN AND SHOWER. A COMPLETE HEAD TO TOE WAS PERFORMED. TELEMETRY ON AND PATIENT RUNNING 78 NORMAL SINUS
--- NOTE | 2019-02-16 02:15 | NUR ---
BLOOD TRANSFUSION INITIATED. PATIENT IS ALERT. RESPIRATIONS ARE EVEN AND UNLABORED. NO S/S OF DISTRESS. NO C/O PAIN. VITALS T 98.6 B/P 123/50 R 20 HR 81. .
[2019-02-16 02:44] VITALS: BP 114/60; BMI 17.6
[2019-02-16 04:00] VITALS: BP 120/58
[2019-02-16 06:50] LABS: BASOPHILS 0.1 % (0-2); EOSINOPHILS 0.3 % (0-7); HEMATOCRIT 24.8 % (42.0-54.0); HEMOGLOBIN 8.4 g/dL (13.5-17.5); IMMATURE GRANULOCYTES 0.5 % (0-5); MCH 27.4 pg (26.0-34.0); MCHC 33.9 g/dL (31.0-37.0); MCV 80.8 fL (80.0-100.0); MEAN PLATELET VOLUME 8.8 fL (7.4-10.4); MONOCYTES 12.2 % (2-11); NEUTROPHILS 70.9 % (40-80); PLATELET COUNT 376 10x3/uL (130-400); RBC 3.07 10x6/uL (4.20-6.10); RDW 14.7 % (11.5-14.5); WBC 11.3 10x3/uL (4.8-10.8)
--- NOTE | 2019-02-16 07:00 | NUR ---
RECEIVED REPORT. ASSUMED CARE OF PATIENT. CALL LIGHT WITHIN REACH. RESTING WITH EYES OPEN. PATIENT COMPLAINING OF PAIN AND REQUESTING PAIN MEDICATION. NO OTHER NEEDS VERBALIZED AT THIS TIME. NO DISTRESS.
[2019-02-16 07:02] LABS: ALBUMIN 2.2 g/dL (3.4-5.0); ALKALINE PHOSPHATASE 84 U/L (46-116); ALT (SGPT) 15 U/L (10-68); BILIRUBIN - TOTAL 0.37 mg/dL (0.2-1.3); CALC OSMOLALITY 274 mosm/kg (275-300); CALCIUM 8.3 mg/dL (8.5-10.1); CARBON DIOXIDE 27.9 mmol/L (21.0-32.0); CHLORIDE - SERUM 100 mmol/L (98-107); CREATININE - SERUM 0.6 mg/dL (0.6-1.3); GLUCOSE 93 mg/dL (74-106); MAGNESIUM - SERUM 1.7 mg/dL (1.8-2.4); PHOSPHOROUS 2.5 mg/dL (2.5-4.9); POTASSIUM - SERUM 3.4 mmol/L (3.5-5.1); PROTEIN - SERUM 6.8 g/dL (6.4-8.2); SODIUM 136 mmol/L (136-145); eGFR NON AFRICAN AMERICAN > 90 mL/min (90-120)
[2019-02-16 07:04] LABS: UREA NITROGEN 20 mg/dL (7-18)
--- NOTE | 2019-02-16 07:56 | NUR ---
20 GAUGE IV PLACED TO LEFT UPPER ARM X 1 STICK. GOOD BLOOD RETURN, EASY FLUSH. TOLERATED IV PLACEMENT WELL. PATIENT NEEDS EXTRA IV FOR ELECTROLYTE PROTOCOL, MAGNESIUM IS NOT COMPATIBLE WITH PROTONIX DRIP. NO DISTRESS. MAGNESIUM INFUSING AT THIS TIME.
[2019-02-16 08:31] VITALS: BP 102/58
--- NOTE | 2019-02-16 09:01 | NUR ---
MAGNESIUM RIDER #2 HUNG AT THIS TIME.
--- NOTE | 2019-02-16 10:07 | NUR ---
K+ RIDER #1 INITIATED AT THIS TIME. NO DISTRESS.
--- NOTE | 2019-02-16 10:51 | NUR ---
K+ RIDER #2 HUNG AT THIS TIME. NO DISTRESS.
--- NOTE | 2019-02-16 11:44 | NUR ---
MEDICATED FOR PAIN. NO DISTRESS.
[2019-02-16 11:49] VITALS: BP 100/52
--- NOTE | 2019-02-16 12:08 | NUR ---
K+ RIDER #3 HUNG AT THIS TIME. NO DISTRESS.
[2019-02-16 12:42] VITALS: BMI 17.6
[2019-02-16 13:00] VITALS: Ht 182.9 cm; Wt 85.1 kg
--- NOTE | 2019-02-16 13:13 | NUR ---
K+ RIDER #4 HUNG AT THIS TIME. NO DISTRESS.
[2019-02-16 15:32] VITALS: BP 98/60
--- NOTE | 2019-02-16 15:54 | NUR ---
MEDICATED FOR PAIN AT THIS TIME. NO DISTRESS.
--- NOTE | 2019-02-16 16:46 | NUR ---
RESTING PEACEFULLY WITH ATTENTION TOWARD TELEVISION. NO DISTRESS. CALL LIGHT WITHIN REACH.
--- NOTE | 2019-02-16 17:25 | NUR ---
PATIENT MOVED FROM ROOM 2103 TO 2108 TO ACCOMODATE OTHER PATIENTS ON THE UNIT THAT NEED TO BE CLOSE TO THE NURSES STATION.
--- NOTE | 2019-02-16 19:45 | NUR ---
PT RESTING IN BED ALERT AND ORIENTED X4. PT COMPLAINS OF PAIN IN LEFT HIP. PRN PAIN MEDICATION GIVEN. PT PROGRESSED TO CLEAR LIQUED DIET. PT GIVEN ORANGE JELLO, APPLE JUICE, POPCICLE, AND SPRITE. PT TOLERATING WELL. BED LOW CALL LIGHT WITHIN REACH. WILL CONTINUE TO MONITOR.
[2019-02-16 20:00] VITALS: BP 105/48
[2019-02-17] VITALS: BP 95/51
--- NOTE | 2019-02-17 02:11 | NUR ---
I have reviewed this patient and I concur with the Shift Assessment completed by the Licensed Practical Nurse today this shift.
--- NOTE | 2019-02-17 02:30 | NUR ---
PT LEFT WRIST IV INFILTRATED. IV DC'D WITH CATHETER TIP IN PLACE. NO REDNESS OR SWELLING NOTED. NEW 20G IV ESTABLISHED IN LEFT FOREARM. IV PATENT NS RUNNING AT 100ML/HR. PT COMPLAINS OF 8/10 PAIN IN HIP. PRN PAIN MEDICATION GIVEN AT THIS TIME. BED LOW CALL LIGHT WITHIN REACH. WILL CONTINUE TO MONITOR.
[2019-02-17 02:56] LABS: APPEARANCE CLEAR (CLEAR); COLOR YELLOW (YELLOW); GLUCOSE 50 mg/dL (NEGATIVE); NITRITE NEGATIVE (NEGATIVE); PROTEIN NEGATIVE (NEGATIVE); SPECIFIC GRAVITY 1.015 (1.005-1.020)
[2019-02-17 02:57] LABS: BILIRUBIN NEGATIVE (NEGATIVE); KETONE SMALL mg/dL (NEGATIVE); UROBILINOGEN NORMAL (NORMAL)
[2019-02-17 02:58] LABS: BACTERIA FEW /hpf (NONE SEEN); EPITHELIAL CELLS 0-5 /hpf (0-5); RED CELLS - URINE 0-5 /hpf (0-5); WHITE CELLS - URINE 0-5 /hpf (0-5)
[2019-02-17 04:00] VITALS: BP 111/69
[2019-02-17 05:29] LABS: BASOPHILS 0.2 % (0-2); EOSINOPHILS 1.6 % (0-7); HEMATOCRIT 24.4 % (42.0-54.0); HEMOGLOBIN 8.2 g/dL (13.5-17.5); IMMATURE GRANULOCYTES 1.1 % (0-5); LYMPHOCYTES 19.5 % (15-50); MCH 27.5 pg (26.0-34.0); MCHC 33.6 g/dL (31.0-37.0); MCV 81.9 fL (80.0-100.0); MEAN PLATELET VOLUME 8.7 fL (7.4-10.4); MONOCYTES 12.6 % (2-11); PLATELET COUNT 364 10x3/uL (130-400); RBC 2.98 10x6/uL (4.20-6.10); RDW 15.2 % (11.5-14.5)
--- NOTE | 2019-02-17 05:39 | NUR ---
I have reviewed this patient and I concur with the Shift Assessment completed by the Licensed Practical Nurse today this shift.
[2019-02-17 05:45] LABS: CALC OSMOLALITY 268 mosm/kg (275-300); CARBON DIOXIDE 26.2 mmol/L (21.0-32.0); CHLORIDE - SERUM 102 mmol/L (98-107); CREATININE - SERUM 0.6 mg/dL (0.6-1.3); GLUCOSE 95 mg/dL (74-106); POTASSIUM - SERUM 3.4 mmol/L (3.5-5.1); SODIUM 135 mmol/L (136-145); eGFR NON AFRICAN AMERICAN > 90 mL/min (90-120)
[2019-02-17 05:50] LABS: UREA NITROGEN 11 mg/dL (7-18)
--- NOTE | 2019-02-17 07:01 | NUR ---
REPORT RECEIVED. HE IS ALERT SITTING UP IN BED WATCHING TV. RESP EVEN WITHOUT LABOR. DENIES ANY CURRENT ABDOMINAL PAIN. IV IN LEFT UPPER ARM INFUSING WITHOUT DIFF. PROTONIX DRIP INFUSING. BED IN LOWEST POSITION AND LOCKED. CAREPLAN REVIEW DONE WITH SAFETY PRECAUTIONS IN PLACE.
[2019-02-17 09:07] VITALS: BP 110/61
[2019-02-17 13:02] VITALS: BP 114/64
--- NOTE | 2019-02-17 16:42 | NUR ---
1640 PROC. COMPLETED. BITE BLOCK REMOVED. 62 16 100% SAT 1649 A/A DR. TAN GAVE PT. RESULTS. DR. OLIVIA CASTANEDA'S RELEASE. 62 18 100% SAT 2L NC.
--- NOTE | 2019-02-17 17:30 | NUR ---
RETURN FROM PROCEDURE ALERT ABLE TO VOICE NEEDS. STATED THEY FOUND BLEEDING ULCERS. ABLE TO MOVE ALL EXT. AND FOLLOW COMMANDS NEURO STATUS IS INTACT. VSS. 110/68,76/20,97.9 O2 SAT IS 96% ON ROOM AIR RESP EVEN WITHOUT LABOR BBS ARE CLEAR
--- NOTE | 2019-02-17 19:54 | NUR ---
REPORT RECEIVED FROM DAY SHIFT, PT CARE ASSUMED. INTRODUCED SELF AND WROTE NAME ON BOARD. PT LYING IN BED WATCHING TV, AAOX4. DENIES PAIN OR ANY NEEDS AT THIS TIME. BED IN LOWEST POSITION, SR X2, CALL LIGHT WITHIN REACH. WILL CONTINUE TO MONITOR.
[2019-02-17 20:17] VITALS: BP 112/56
[2019-02-18] VITALS: BP 120/79
--- NOTE | 2019-02-18 02:50 | NUR ---
RECIEVED REPORT FROM NORRIS ZAMARRIPA. PT RESTING IN BED ALERT AND ORIENTED REQUESTING PRN PAIN MEDICATION FOR PAIN 8/10 IN HIP AND BACK. MEDICATION GIVEN. PT HAS NO FURTHER NEEDS OR COMPLAINTS AT THIS TIME. BED LOW CALL LIGHT WITHIN REACH. WILL CONTINUE TO MONITOR.
--- NOTE | 2019-02-18 02:54 | NUR ---
PT RESTING IN BED WITH EYES CLOSED RR EVEN AND UNLABORED. BED LOW CALL LIGHT WITHIN REACH. WILL CONTINUE TO MONITOR.
[2019-02-18 04:00] VITALS: BP 137/82
[2019-02-18 06:40] LABS: BASOPHILS 0.2 % (0-2); EOSINOPHILS 1.7 % (0-7); HEMATOCRIT 26.8 % (42.0-54.0); HEMOGLOBIN 8.9 g/dL (13.5-17.5); IMMATURE GRANULOCYTES 0.8 % (0-5); LYMPHOCYTES 16.2 % (15-50); MCH 27.2 pg (26.0-34.0); MCHC 33.2 g/dL (31.0-37.0); MEAN PLATELET VOLUME 8.7 fL (7.4-10.4); MONOCYTES 9.9 % (2-11); NEUTROPHILS 71.2 % (40-80); PLATELET COUNT 400 10x3/uL (130-400); RBC 3.27 10x6/uL (4.20-6.10); RDW 15.3 % (11.5-14.5)
--- NOTE | 2019-02-18 06:53 | NUR ---
REPORT RECEIVED. HE IS ALERT WATCHING TV. RESP EVEN WITHOUT LABOR. IV SITE AND SALINE LOCK SITE ARE CLEAR. NO C/O VOICED AT THIS TIME. REPORTS NO ABDOMINAL PAIN OR ACTIVE BLEEDING SUCH DARK STOOLS. BED IS LOCKED AND IN LOWEST POSITION. CAREPLAN REVIEW DONE WITH SAFETY PRECAUTIONS IN PLACE
[2019-02-18 06:58] LABS: CALCIUM 8.3 mg/dL (8.5-10.1); CARBON DIOXIDE 28.1 mmol/L (21.0-32.0); CHLORIDE - SERUM 101 mmol/L (98-107); CREATININE - SERUM 0.6 mg/dL (0.6-1.3); GLUCOSE 111 mg/dL (74-106); SODIUM 135 mmol/L (136-145); eGFR NON AFRICAN AMERICAN > 90 mL/min (90-120)
[2019-02-18 06:59] LABS: WBC 13.3 10x3/uL (4.8-10.8)
[2019-02-18 07:01] LABS: CALC OSMOLALITY 267 mosm/kg (275-300); POTASSIUM - SERUM 3.1 mmol/L (3.5-5.1); UREA NITROGEN 4 mg/dL (7-18)
[2019-02-18 09:55] VITALS: BP 174/76
--- NOTE | 2019-02-18 10:43 | NUR ---
Nutrition Follow-up: S/p EGD yesterday; findings include esophagitis, gastritis, and multiple ulcerations. Diet advanced. No abd pain/dark stools per RN. Diet: Regular Wt: 144# Last BM: 02/16 per chart Labs reviewed Meds reviewed Continue current diet as tolerated. Offer nutrition supplements. [place] food preferences. RD following.
[2019-02-18 14:47] VITALS: BP 152/86
--- NOTE | 2019-02-18 18:45 | NUR ---
BONE SCAN OF LEFT FOOT COMPLETE TODAY.
--- NOTE | 2019-02-18 19:05 | NUR ---
ALERT IN BED WITH BED LOW AND LOCKED PT REFUSE MY EXAM AT THIS TIME SAYING COME BACK LATER CALL LIGHT IS WITH THE PT
[2019-02-18 20:00] VITALS: BP 137/68
[2019-02-19] VITALS: BP 117/62
--- NOTE | 2019-02-19 03:42 | NUR ---
I have reviewed this patient and I concur with the Shift Assessment completed by the Licensed Practical Nurse today this shift.
[2019-02-19 05:00] VITALS: BP 117/74
[2019-02-19 05:29] LABS: BASOPHILS 0.2 % (0-2); EOSINOPHILS 2.8 % (0-7); HEMATOCRIT 25.2 % (42.0-54.0); HEMOGLOBIN 8.3 g/dL (13.5-17.5); IMMATURE GRANULOCYTES 0.7 % (0-5); LYMPHOCYTES 17.3 % (15-50); MCH 27.4 pg (26.0-34.0); MCHC 32.9 g/dL (31.0-37.0); MCV 83.2 fL (80.0-100.0); MEAN PLATELET VOLUME 8.5 fL (7.4-10.4); MONOCYTES 9.8 % (2-11); NEUTROPHILS 69.2 % (40-80); PLATELET COUNT 399 10x3/uL (130-400); RBC 3.03 10x6/uL (4.20-6.10); RDW 15.6 % (11.5-14.5)
[2019-02-19 05:44] LABS: CALC OSMOLALITY 270 mosm/kg (275-300); CARBON DIOXIDE 32.1 mmol/L (21.0-32.0); CHLORIDE - SERUM 99 mmol/L (98-107); CREATININE - SERUM 0.6 mg/dL (0.6-1.3); GLUCOSE 106 mg/dL (74-106); POTASSIUM - SERUM 3.7 mmol/L (3.5-5.1); SODIUM 137 mmol/L (136-145); UREA NITROGEN 4 mg/dL (7-18); eGFR NON AFRICAN AMERICAN > 90 mL/min (90-120)
--- NOTE | 2019-02-19 07:19 | NUR ---
ROUNDING DONE WITH PATIENT LAYING ON BACK. DENIES NEEDS AT THIS TIME. WAS GIVEN IV MORPHINE AT SHIFT CHANGE. TALKED TO PATIENT ABOUT GETTING SOME ORAL PAIN MEDS TO ALTERNATE WITH IV, HE SAID OKAY. TAKES MOTRIN AT HOME. ON ROOM AIR. LEFT WRIST SALINE LOCK, LEFT FA PIV WITH NS INFUSING AT 125 CC/HR. ON EP, K+ IS 3.7. IN CONTACT ISOLATION FOR MRSA IN BLOOD. WILL CPOC.
--- NOTE | 2019-02-19 07:44 | NUR ---
PAGE INTO [facility] APN TO SEE ABOUT ALTERNATING IV AND ORAL PAIN MEDS. AWAITING NEW ORDERS.
--- NOTE | 2019-02-19 10:47 | EC ---
PATIENT:MEHNAZ LOVELACE JR DATE OF SERVICE: 02/15/19 SEX: M MEDICAL RECORD: [id number] DATE OF : 60 LOCATION:D.M2 D.210 AGE OF PATIENT: 58 ADMISSION DATE: 02/15/19 REFERRING PHYSICIAN: INTERPRETING PHYSICIAN: JEAN-PAUL BURT MD ECHOCARDIOGRAM REPORT ECHO CHARGES 4 ECHO COMPLETE Date: 02/17/19 CLINICAL DIAGNOSIS: R/O VEGITATION ECHOCARDIOGRAPHIC MEASUREMENTS (adult normal given) AC root (d.<3.7cm) 0 cm LV Septum d (<1.2 cm> 0 cm Valve Excursion 0 cm LV Septum (systole) 0 cm Left Atria (s.<4.0cm> 0 cm LVPW d(<1.2cm) 0 cm RV (d.<2.3cm) 0 cm LVPW (sytole) 0 cm LV diastole(<5.6CM) 0 cm MV E-F(>70mm/sec) 0 cm LV systole 0 cm LVOT Diameter 0 cm MV exc.(>10mm) 0 cm Est.ejection fraction (50-75%) % DOPPLER: LVIT cm/sec A 0 cm/sec E 0 cm/sec LA 0 cm/sec RVSP mmHg LVOT 0 cm/sec AOP1/2T 0 m/s Asc. Ao cm/sec RVOT 0 cm/sec RA 0 cm/sec PA cm/sec AV Gradient Peak 0 mmHg AV Mean mmHg AV Area 0 cm MV Gradient Peak 0 mmHg MV Mean 0 mmHg MV Area cm COMMENTS: Split Leather Mosser: [facility] Account Liaison: Maira Burt TAPE# PACS Pericardial Effusion N DATE OF SERVICE: 02/17/2019 FINDINGS: 1. Left ventricular chamber size is within normal limits. Left ventricular systolic function is normal. Overall ejection fraction estimated at 60%. 2. Left atrium, right atrium, right ventricle chamber size is within normal limits. 3. Valvular structures have normal structure and motion. 4. Doppler interrogation reveals no significant valvular insufficiency or stenosis. ECHOCARDIOGRAM REPORT [id number] MEHNAZ LOVELACE JR 5. No evidence of vegetative endocarditis. 6. No evidence of pericardial effusion or left ventricular thrombus. TRANSINT:[id number] Voice Confirmation ID: [id number] DOCUMENT ID: [id number] JEAN-PAUL BURT MD at 1047 CC: [id number] DICTATION DATE: 02/17/19 1553 BRAND MANAGER: 02/17/19 2200 ADM IN [place] [id number] [place] [id number]
[2019-02-19 13:15] VITALS: BP 116/68
--- NOTE | 2019-02-19 15:38 | NUR ---
PAST BED AND BATH DONE PER DEVIKA YAO. CALL LIGHT ON AND PATIENT REQUESTING PAIN PILL. I BROUGHT COLLEEN IN TO GIVE PATIENT AND WENT TO TURN CALL LIGHT OFF PATIENT IS IN ISOLATION. I ASKED HIM IF HE HAD REACHED UP AND TURNED IT OFF AND HE REPLIED YES. 8/10 PAIN SCALE FOR HIP PAIN. DENIES ANY FURTHER NEEDS AT THIS TIME.
[2019-02-19 17:12] LABS: ERYTHROCYTE SEDIMENTATION RATE 46 mm/hr (0-20)
[2019-02-19 17:23] VITALS: BP 116/64
--- NOTE | 2019-02-19 18:01 | NUR ---
DEVIKA YAO EMPTIED URINAL WITHOUT OBTAINING URINE SAMPLE. WILL PASS THIS TO NEXT SHIFT TO TRY AGAIN.
--- NOTE | 2019-02-19 19:28 | NUR ---
RECIEVED UP IN BED WITH EYES OPEN AND TV ON. ALERT AND ORIENTED X4. REMAINS IN CONTACT ISOLATION R/T MRSA. IV TO LEFT FA SL.. IV TO LEFT UPPER ARM WITH NS AT 125CC/HR. NO REDNESS OR SWELLING TO SITED. DSG CDI. DENIES ANY NEEDS AT THIS TIME.
[2019-02-19 20:00] VITALS: BP 114/62
[2019-02-19 23:50] VITALS: BP 109/62
[2019-02-20 04:30] VITALS: BP 120/66
[2019-02-20 05:06] LABS: BASOPHILS 0.2 % (0-2); HEMATOCRIT 22.9 % (42.0-54.0); IMMATURE GRANULOCYTES 0.7 % (0-5); LYMPHOCYTES 16.9 % (15-50); MCH 27.1 pg (26.0-34.0); MCHC 32.3 g/dL (31.0-37.0); MCV 83.9 fL (80.0-100.0); MEAN PLATELET VOLUME 8.7 fL (7.4-10.4); MONOCYTES 11.3 % (2-11); NEUTROPHILS 67.9 % (40-80); PLATELET COUNT 399 10x3/uL (130-400); RBC 2.73 10x6/uL (4.20-6.10); RDW 15.5 % (11.5-14.5); WBC 11.7 10x3/uL (4.8-10.8)
[2019-02-20 05:14] LABS: CALC OSMOLALITY 267 mosm/kg (275-300); CALCIUM 7.9 mg/dL (8.5-10.1); CARBON DIOXIDE 31.3 mmol/L (21.0-32.0); CHLORIDE - SERUM 101 mmol/L (98-107); CREATININE - SERUM 0.5 mg/dL (0.6-1.3); GLUCOSE 100 mg/dL (74-106); HEMOGLOBIN 7.4 g/dL (13.5-17.5); SODIUM 135 mmol/L (136-145); eGFR NON AFRICAN AMERICAN > 90 mL/min (90-120)
[2019-02-20 05:20] LABS: UREA NITROGEN 8 mg/dL (7-18)
--- NOTE | 2019-02-20 07:00 | NUR ---
RECEIVED REPORT. ASSUMED CARE OF PATIENT. RESTING IN BED WITH EYES CLOSED. EASILY AROUSED. RESP EVEN AND UNLABORED. NO DISTRESS.
--- NOTE | 2019-02-20 08:59 | NUR ---
MEDICATED FOR HIP PAIN AT THIS TIME. NO DISTRESS.
[2019-02-20 09:38] VITALS: BP 113/89
[2019-02-20 11:30] VITALS: BP 119/60
--- NOTE | 2019-02-20 11:36 | NUR ---
MEDICATED FOR PAIN AT THIS TIME.
--- NOTE | 2019-02-20 14:40 | NUR ---
1ST UNIT OF PRBC'S INITIATED AT 1430. VS STABLE. NO DISTRESS. PATIENT RESTING IN BED WITH ATTENTION TOWARD TELEVISION. CALL LIGHT WITHIN REACH.
--- NOTE | 2019-02-20 17:03 | NUR ---
MEDICATED FOR PAIN. NO DISTRESS. CONTINUES TO TOLERATED BLOOD TRANSFUSION WELL.
[2019-02-20 17:47] VITALS: BP 130/79
--- NOTE | 2019-02-20 18:06 | NUR ---
#2 UNIT OF PRBC'S INFUSING AT THIS TIME. PATIENT TOLERATING 2ND UNIT WELL. NO DISTRESS. CALL LIGHT RACHEL FARFAN.
--- NOTE | 2019-02-20 19:18 | NUR ---
RECIEVED BEDSIDE REPORT FROM OFFGOING NURSE. ALERT AND ORIENTED X4. UP AD RYAN TO B/R. PRBC INFUSING AT 125CC/HR TO LEFT UPPER ARM. IV ALSO TO LEFT FA SL.. DENIES ANY NEEDS AT THIS TIME. V/S'S BEING MONITORED. WILL CONT. POC.
[2019-02-20 20:00] VITALS: BP 125/62
[2019-02-20 21:59] LABS: HEMATOCRIT 28.6 % (42.0-54.0); HEMOGLOBIN 9.7 g/dL (13.5-17.5)
[2019-02-21] VITALS: BP 136/74
[2019-02-21 03:34] LABS: BASOPHILS 0.2 % (0-2); EOSINOPHILS 3.9 % (0-7); HEMATOCRIT 26.9 % (42.0-54.0); IMMATURE GRANULOCYTES 0.6 % (0-5); MCHC 33.5 g/dL (31.0-37.0); MCV 83.8 fL (80.0-100.0); MEAN PLATELET VOLUME 8.3 fL (7.4-10.4); MONOCYTES 10.8 % (2-11); NEUTROPHILS 65.5 % (40-80); PLATELET COUNT 375 10x3/uL (130-400); RBC 3.21 10x6/uL (4.20-6.10); RDW 15.1 % (11.5-14.5); WBC 10.2 10x3/uL (4.8-10.8)
[2019-02-21 03:41] LABS: CALC OSMOLALITY 278 mosm/kg (275-300); CALCIUM 8.1 mg/dL (8.5-10.1); CARBON DIOXIDE 31.7 mmol/L (21.0-32.0); CHLORIDE - SERUM 102 mmol/L (98-107); CREATININE - SERUM 0.5 mg/dL (0.6-1.3); GLUCOSE 102 mg/dL (74-106); SODIUM 141 mmol/L (136-145); UREA NITROGEN 7 mg/dL (7-18); eGFR NON AFRICAN AMERICAN > 90 mL/min (90-120)
[2019-02-21 04:00] VITALS: BP 138/68
--- NOTE | 2019-02-21 04:00 | NUR ---
I have reviewed this patient and I concur with the Shift Assessment completed by the Licensed Practical Nurse today this shift.
--- NOTE | 2019-02-21 07:00 | NUR ---
RECEIVED REPORT. ASSUMED CARE OF PATIENT. CALL LIGHT WITHIN REACH. RESTING IN BED WITH EYES OPEN. RESP EVEN AND UNLABORED. NO DISTRESS.
--- NOTE | 2019-02-21 07:33 | NUR ---
MEDICATED FOR PAIN. PATIENT COMPLAINING THAT NIGHT NURSE WOULD NOT GIVE HIM PAIN MEDICATION THIS MORNING AND NOW HIS HIP IS ABSOLUTELY KILLING HIM. APOLOGIZED FOR HIS EXPERIENCE. CALL LIGHT WITHIN REACH. NO DISTRESS. IV FLUIDS INFUSING ORDERED.
[2019-02-21 08:00] VITALS: BP 131/73
--- NOTE | 2019-02-21 11:47 | NUR ---
SPOKE WITH ASHLIE IN PHARMACY. VANC LEVEL IS HIGH AND PATIENT IS DUE FOR VANC AT THIS TIME. PHARMACY TO DOSE. ASHLIE GAVE VERBAL ORDERS TO HOLD VANC AT THIS TIME AND THEY WILL RETIME AND DOSE.
[2019-02-21 12:30] VITALS: BP 134/60
--- NOTE | 2019-02-21 14:29 | MORECARE ---
CASE MANAGEMENT DISCHARGE SUMMARY PATIENT: MEHNAZ LOVELACE JR UNIT: [id number] ADM DATE: 02/15/19 AGE: 58 : 60 SEX: M ROOM/BED: D.2108 AUTHOR: JULESDOC PHYSICIAN: REFERRING PHYSICIAN: ALEXI LINDSAY MD DATE OF SERVICE: 02/21/19 Discharge Plan Patient Name: MEHNAZ LOVELACE [facility] [facility] 1960 Planned Disposition: Anticipated Discharge Date: Discharge Date: Expected LOS: Initial Reviewer: [id number] Initial Review Date: 02/21/2019 Generated: 02/21/19 3:28 pm DCPIA - Discharge Planning Initial Assessment Updated by [id number]: Sybil Walker on 02/21/19 2:27 pm * Is the patient Alert and Oriented? Yes * PCP [facility] * [facility] * Preadmission Environment Home Alone * ADLs Independent * Equipment Cane * Community resources currently utilized Home Health * Please name any agencies selected above. [facility] * Additional services required to return to the preadmission environment? Yes * Can the patient safely return to the preadmission environment? Yes * Has this patient been hospitalized within the prior 30 days at any hospital? Yes Patient Name: MEHNAZ LOVELACE Page [id number] at 1429 All edits/amendments must be made on the electronic document DICTATION DATE: 02/21/191427 COLLET MAKER: APOLINAR 02/21/19 1428 RPT#: [id number] DC DATE: STATUS: ADM IN [facility] [address] [place] [address] END OF REPORT
--- NOTE | 2019-02-21 14:40 | MORECARE ---
CASE MANAGEMENT DISCHARGE SUMMARY PATIENT: MEHNAZ LOVELACE JR UNIT: [id number] ADM DATE: 02/15/19 AGE: 58 : 60 SEX: M ROOM/BED: D.9617 AUTHOR: JULES,DOC PHYSICIAN: REFERRING PHYSICIAN: ALEXI LINDSAY MD DATE OF SERVICE: 02/21/19 Discharge Plan Patient Name: MEHNAZ LOVELACE Facility: [facility]:[place] : 1960 Planned Disposition: Anticipated Discharge Date: Discharge Date: Expected LOS: Initial Reviewer: [email or web address] Initial Review Date: 02/21/2019 Generated: 02/21/19 3:40 pm Comments DCP- Discharge Planning Updated by [id number]: Sybil Walker on 02/21/19 1:[address] Patient Name: MEHNAZ LOVELACE Admission Status: ER Accout number: [id number] Admission Date: 02-15-2019 : 1960 Admission Diagnosis:GASTROINTESTINAL HEMORRHAGE, UNSPECIFIED Attending: ALEXI LINDSAY Current LOS: 6 Anticipated DC Date: Planned Disposition: Primary Insurance: [place]ID [place] Discharge Planning Comments: CM met with patient at bedside after explaining CM role and obtaining verbal consent. CM discussed availability / needs of home health and medical equipment. [facility] is current with [facility] . [facility] doctor told him he will need 4 weeks iv antibiotics. Since he doesn't have electricity and water it is unlikely iv companies will get him meds. Patient [place] would like [facility] for 4 weeks. natasha signed. CM will continue to Monitor. Interactive Media Project Manager: Sybil Walker DCPIA - Discharge Planning Initial Assessment Updated by [email or web address]: Sybil Walker on 02/21/19 2:27 pm * Is the patient Alert and Oriented? Yes * PCP [facility] * [facility] * Preadmission Environment Home Alone * ADLs Independent * Equipment Cane * Community resources currently utilized Home Health * Please name any agencies selected above. [facility] * Additional services required to return to the preadmission environment? Yes * Can the patient safely return to the preadmission environment? Yes * Has this patient been hospitalized within the prior 30 days at any hospital? Yes Coverage Notice Reviewer: [id number] - Sybil Walker Notice Issued Date-Time: 02/21/2019 14:30 Notice Type: Patient Choice Letter Notice Delivered To: Patient Relationship to Patient: Technology Education Teacher Name: Delivery Method: HAND - Hand Delivered Sherin Days: Prior Verbal Notification: Recipient Understood Notice: Yes Recipient Signature: Yes Med Rec Note Co-signed by Attending: Coverage Notice Comment: [facility]. [facility] Last DP export: 02/21/19 1:29 pm Patient Name: MEHNAZ LOVELACE Page [phone] at 1440 All edits/amendments must be made on the electronic document DICTATION DATE: 02/21/19 1440 ANNEALING FURNACE OPERATOR: APOLINAR 02/21/19 1440 RPT#: [id number] DC DATE: STATUS: ADM IN [facility] [address] [place] [address] END OF REPORT
--- NOTE | 2019-02-21 14:59 | NUR ---
RESTING PEACEFULLY WITH EYES CLOSED. RESP EVEN AND UNLABORED. NO DISTRESS.
--- NOTE | 2019-02-21 16:00 | NUR ---
PATIENT ASSISTED ON AND OFF OF THE BED SPEARS. STOOL SPECIMEN COLLECTED. NO DISTRESS.
--- NOTE | 2019-02-21 16:19 | NUR ---
MEDICATED FOR PAIN AT THIS TIME.
[2019-02-21 16:30] VITALS: BP 115/63
--- NOTE | 2019-02-21 19:20 | NUR ---
PT CARE ASSUMED. BEDSIDE SHIFT REPORT COMPLETE. PT RESING IN BED. RR EVEN AND UNLABORED. NO S/S OF DISTRESS NOTED. NO VOICED C/O OR CONCERNS. CALL LIGHT IN REACH. WILL CPOC.
[2019-02-21 20:00] VITALS: BP 131/71
--- NOTE | 2019-02-22 | NUR ---
PT C/O ABDOMINAL AND BACK PAIN 12/30. GAVE 1 TAB NORCO-7.5 MG PO. EMPTIED URINAL 250 CC'S. HUNG SCHEDULED ABX. NO OTHER NEEDS. WILL REASSESS AND CONTINUE TO MONITOR. CONTACT ISOLATION PRECAUTIONS OBSERVED.
[2019-02-22 00:18] VITALS: BP 141/70
[2019-02-22 05:36] LABS: BASOPHILS 0.2 % (0-2); EOSINOPHILS 3.1 % (0-7); HEMATOCRIT 27.4 % (42.0-54.0); HEMOGLOBIN 9.1 g/dL (13.5-17.5); IMMATURE GRANULOCYTES 0.3 % (0-5); LYMPHOCYTES 21.3 % (15-50); MCHC 33.2 g/dL (31.0-37.0); MCV 84.3 fL (80.0-100.0); MEAN PLATELET VOLUME 8.7 fL (7.4-10.4); MONOCYTES 13.2 % (2-11); NEUTROPHILS 61.9 % (40-80); PLATELET COUNT 440 10x3/uL (130-400); RBC 3.25 10x6/uL (4.20-6.10); RDW 15.5 % (11.5-14.5); WBC 9.4 10x3/uL (4.8-10.8)
[2019-02-22 05:53] LABS: CALC OSMOLALITY 275 mosm/kg (275-300); CALCIUM 8.2 mg/dL (8.5-10.1); CARBON DIOXIDE 30.4 mmol/L (21.0-32.0); CHLORIDE - SERUM 102 mmol/L (98-107); CREATININE - SERUM 0.5 mg/dL (0.6-1.3); GLUCOSE 96 mg/dL (74-106); POTASSIUM - SERUM 3.5 mmol/L (3.5-5.1); SODIUM 139 mmol/L (136-145); UREA NITROGEN 7 mg/dL (7-18); eGFR NON AFRICAN AMERICAN > 90 mL/min (90-120)
[2019-02-22 06:25] VITALS: BP 131/71
--- NOTE | 2019-02-22 07:20 | NUR ---
AM ROUNDS- PT IN CONTACT ISOLATION, PT RESTING COMFORTABLY IN BED WITH EYES CLOSED. PT EASILY AROUSES TO VOICE. LT FA IV SL AND LT UPPER ARM INFUSING NS AT 125, PT RATES PAIN LEVEL OF 7/10. PT A/O X4, RESP EVEN AND NONLABORED ON RA. MONITOR SHOWING SR WITH RATE OF 67. PT DENIES ANY NEEDS AT THIS TIME. CALL LIGHT IN REACH, NAD NOTED, WILL CONTINUE TO MONITOR.
--- NOTE | 2019-02-22 08:16 | NUR ---
AM MEDS GIVEN AT THIS TIME. ALSO GAVE NORCO FOR PAIN LEVEL OF 8/10. PT DENIES ANY NEEDS AT THIS TIME. CALL LIGHT IN REACH, NAD NOTED, WILL CONITNUE TO MONITOR.
[2019-02-22 08:43] VITALS: BP 147/85
--- NOTE | 2019-02-22 12:28 | NUR ---
GAVE NORCO FOR PAIN LEVEL OF 9/10. ALSO EMPTIED 600CC OF YELLOW URINE OUT OF URINAL. PT DENIES ANY NEED OTHER NEEDS AT THIS TIME. CALL LIGHT IN REACH, NAD NOTED, WILL CONTINUE TO MONITOR.
[2019-02-22 13:28] VITALS: BP 134/79
--- NOTE | 2019-02-22 19:20 | NUR ---
REPORT RECEIVED FROM DAY SHIFT, PT CARE ASSUMED. INTRODUCED SELF AND WROTE NAME ON BOARD. PT LYING IN BED, AAOX4, REPORTS BACK PAIN OF 7/10, ON A SCALE OF 0-10. DENIES ANY OTHER NEEDS AT THIS TIME. BED IN LOWEST POSITION, SR X2, CALL LIGHT WITHIN REACH. WILL CONTINUE TO MONITOR.
[2019-02-22 20:00] VITALS: BP 125/68
--- NOTE | 2019-02-22 21:09 | NUR ---
NIGHT TIME MEDS ADMINSITERED, PER ORDER. PT DENIES ANY OTHER NEEDS AT THIS TIME. BED IN LOWEST POSITION, SR X2, CALL LIGHT AND URINAL WITHIN REACH. WILL CONTINUE TO MONITOR.
[2019-02-23 00:01] VITALS: BP 143/67
[2019-02-23 04:00] VITALS: BP 162/75
[2019-02-23 05:22] LABS: BASOPHILS 0.5 % (0-2); EOSINOPHILS 2.7 % (0-7); HEMATOCRIT 27.7 % (42.0-54.0); HEMOGLOBIN 9.1 g/dL (13.5-17.5); IMMATURE GRANULOCYTES 0.3 % (0-5); LYMPHOCYTES 20.5 % (15-50); MCHC 32.9 g/dL (31.0-37.0); MCV 85.2 fL (80.0-100.0); MEAN PLATELET VOLUME 8.5 fL (7.4-10.4); MONOCYTES 11.4 % (2-11); NEUTROPHILS 64.6 % (40-80); PLATELET COUNT 434 10x3/uL (130-400); RBC 3.25 10x6/uL (4.20-6.10); RDW 15.6 % (11.5-14.5); WBC 8.8 10x3/uL (4.8-10.8)
[2019-02-23 05:53] LABS: CALC OSMOLALITY 276 mosm/kg (275-300); CARBON DIOXIDE 31.5 mmol/L (21.0-32.0); CHLORIDE - SERUM 102 mmol/L (98-107); GLUCOSE 115 mg/dL (74-106); POTASSIUM - SERUM 3.8 mmol/L (3.5-5.1); SODIUM 139 mmol/L (136-145); UREA NITROGEN 6 mg/dL (7-18)
[2019-02-23 06:12] LABS: CREATININE - SERUM 0.7 mg/dL (0.6-1.3); eGFR NON AFRICAN AMERICAN > 90 mL/min (90-120)
--- NOTE | 2019-02-23 06:47 | NUR ---
AM ROUNDS- PT RESTING COMFORTABLY IN BED WITH EYES CLOSED, EASILY AROUSES TO VOICE. PT A/O X4, RESP EVEN AND NONLABORED ON RA. LT UPPER ARM INFUSING NS AT 125CC/HR. MONITOR SHOWING SR 66. PT RATES PAIN LEVEL OF 7/10 AFTER NORCO GIVEN BY HEEL SEAT FITTER MACHINE NURSE. PT ON CONTACT ISOLATION FOR MRSA IN THE BLOOD. PT DENIES ANY NEEDS AT THIS TIME. CALL LIGHT IN REACH, NAD NOTED, WILL CONTINUE TO MONITOR.
[2019-02-23 08:29] VITALS: BP 132/63
--- NOTE | 2019-02-23 08:32 | NUR ---
AM MEDS GIVEN AT THIS TIME. PT LAYING COMFORTABLY IN BED, DENIES ANY NEEDS AT THIS TIME. CALL LIGHT IN REACH, NAD NOTED,W ILL CONTINUE TO MONITOR.
--- NOTE | 2019-02-23 10:05 | NUR ---
NORCO GIVEN FOR PAIN LEVEL OF 8/10. PT DENIES ANY OTHER NEEDS AT THIS TIME, CALL LIGHT IN REACH, NAD NOTED, WILL CONTINUE TO MONITOR,
--- NOTE | 2019-02-23 10:10 | MORECARE ---
CASE MANAGEMENT DISCHARGE SUMMARY PATIENT: MEHNAZ LOVELACE JR UNIT: [id number] ADM DATE: 02/15/19 AGE: 58 : 60 SEX: M ROOM/BED: D.2106 AUTHOR: JULES,DOC PHYSICIAN: REFERRING PHYSICIAN: ALEXI LINDSAY MD DATE OF SERVICE: 02/23/19 Discharge Plan Patient Name: MEHNAZ LOVELACE Facility: [facility]:[place] : 1960 Planned Disposition: Home with Home Health Anticipated Discharge Date: Discharge Date: Expected LOS: Initial Reviewer: [email or web address] Initial Review Date: 02/21/2019 Generated: 02/23/19 11:10 am Comments DCP- Discharge Planning Updated by [id number]: Dwain Wiseman on 02/23/19 9:[address] Patient Name: MEHNAZ LOVELACE Encounter No: [id number] : 1960 Primary Insurance: MEDICAID [place] Anticipated DC Date: Planned Disposition: Home with Home Health External Planned Provider: TO BE DETERMINED DCP follow-up note: CM MET WITH PT IN ROOM, DISCUSSED PLACEMENT AT [facility] FOR IV ANTIBIOTICS. PT WAS NOT INFORMED THAT MEDICAID WOULD NOT PAY FOR SHORT TERM SKILLED PLACEMENT. CM EXPLAINED [facility]EDIGREE TRACER CARE PLACEMENT IN [facility] FACILITY. PT STATES HE DOES NOT WANT TO LOSE HIS "CHECK" AND WILL NOT GO TO A SNF. PT DOES NOT HAVE ELECTRICITY OR RUNNING WATER AT HIS HOME AND WILL "THINK ABOUT" WHO HE MAY POSSIBLY STAY WITH FOR IV ANTIBIOTICS AND HOME HEALTH. PT WILL LET CM KNOW SOON POSSIBLE WHAT HE "CAN FIND OUT." PT REFUSED PENITENTIARY CARE PLACEMENT IN NURSING FACILITY. PT WORKING ON HIS PLAN TO STAY WITH A FRIEND AND WILL NOTIFY CM WHEN HE CAN FIND SOMEONE TO ALLOW HIM TO STAY FOR COURSE OF IV ANTIBIOTICS IN THEIR HOME. Dwain Wiseman CASE LASHAWN DCP- Discharge Planning Updated by [email or web address]: Sybil Walker on 02/21/19 1:[address] Patient Name: MEHNAZ LOVELACE Admission Status: ER Accout number: [id number] Admission Date: 02-15-2019 : 1960 Admission Diagnosis:GASTROINTESTINAL HEMORRHAGE, UNSPECIFIED Attending: ALEXI LINDSAY Current LOS: 6 Anticipated DC Date: Planned Disposition: Primary Insurance: MEDICAID [place] Discharge Planning Comments: CM met with patient at bedside after explaining CM role and obtaining verbal consent. CM discussed availability / needs of home health and medical equipment. [facility] is current with [facility]. [facility] doctor told him he will need 4 weeks iv antibiotics. Since he doesn't have electricity and water it is unlikely iv companies will get him meds. Patient states [facility] like [facility]. natasha signed. CM will continue to Monitor. Counter Hop: Sybil Walker DCPIA - Discharge Planning Initial Assessment Updated by [id number]: Sybil Walker on 02/21/19 2:27 pm * Is the patient Alert and Oriented? Yes * PCP [facility] * [facility] * Preadmission Environment Home Alone * ADLs Independent * Equipment Cane * Community resources currently utilized Home Health * Please name any agencies selected above. [facility] * Additional services required to return to the preadmission environment? Yes * Can the patient safely return to the preadmission environment? Yes * Has this patient been hospitalized within the prior 30 days at any hospital? Yes Coverage Notice Reviewer: [id number] - Sybil Walker Notice Issued Date-Time: 02/21/2019 14:30 Notice Type: Patient Choice Letter Notice Delivered To: Patient Relationship to Patient: Retort Pre Cooker Name: Delivery Method: HAND - Hand Delivered Sherin Days: Prior Verbal Notification: Recipient Understood Notice: Yes Recipient Signature: Yes Med Rec Note Co-signed by Attending: Coverage Notice Comment: [facility] resume. [facility] Last DP export: 02/21/19 1:40 pm Patient Name: MEHNAZ LOVELACE Page [phone] at 1010 All edits/amendments must be made on the electronic document DICTATION DATE: 02/23/19 1010 ANTHROPOLOGY DEPARTMENT CHAIR: APOLINAR 02/23/19 1010 RPT#: [id number] DC DATE: STATUS: ADM IN [facility] [address] [place] [address] END OF REPORT
--- NOTE | 2019-02-23 11:45 | NUR ---
PT TO MRI, VIA WHEELCHAIR.
[2019-02-23 12:18] VITALS: BP 145/55
[2019-02-23 12:34] VITALS: BP 122/69
--- NOTE | 2019-02-23 12:45 | NUR ---
PT BACK TO ROOM 2108, PLACED HEART MONITOR BACK ON. PT DENIES ANY NEEDS AT THIS TIME. CALL LIGHT IN REACH, NAD NOTED,W ILL CONTINUE TO MONITOR.
--- NOTE | 2019-02-23 13:03 | NUR ---
Nutrition Follow-up: Diet: Regular PO intake: 100% Wt: 131# Rec reweigh; wt from yesterday was 159# Last BM: 02/21 Labs reviewed Meds reviewed Continue current diet. RD following.
--- NOTE | 2019-02-23 14:31 | NUR ---
LT UPPER ARM IV LEAKING, D/C IV WITH CATHETER TIP INTACT. NEW 2OG IV STARTED TO LT WRIST X1 STICK. ALSO GAVE NORCO FOR PAIN LEVEL OF 8/10, PT DENIES ANY OTHER NEEDS AT THIS TIME. CALL LIGHT IN REACH, NAD NOTED, WILL CONTINUE TO MONITOR.
--- NOTE | 2019-02-23 18:13 | NUR ---
GAVE NORCO FOR PAIN LEVEL OF 7/10. PT DENIES ANY OTHER NEEDS, CALL LIGHT IN REACH.
--- NOTE | 2019-02-23 19:00 | NUR ---
EVENING ROUNDS COMPLETE. PT LAYING IN BED, NO SIGNS OF DISTRESS. CL IN REACH, BED IN LOWEST POSITION. WILL CONT WITH POC.
[2019-02-23 20:00] VITALS: BP 142/60
[2019-02-24 00:41] VITALS: BP 133/48
[2019-02-24 04:00] VITALS: BP 138/70
[2019-02-24 05:26] LABS: BASOPHILS 0.2 % (0-2); EOSINOPHILS 2.7 % (0-7); HEMATOCRIT 26.7 % (42.0-54.0); HEMOGLOBIN 8.7 g/dL (13.5-17.5); IMMATURE GRANULOCYTES 0.2 % (0-5); LYMPHOCYTES 19.2 % (15-50); MCH 27.8 pg (26.0-34.0); MCHC 32.6 g/dL (31.0-37.0); MCV 85.3 fL (80.0-100.0); MEAN PLATELET VOLUME 8.6 fL (7.4-10.4); MONOCYTES 12.8 % (2-11); NEUTROPHILS 64.9 % (40-80); PLATELET COUNT 428 10x3/uL (130-400); RBC 3.13 10x6/uL (4.20-6.10); RDW 15.8 % (11.5-14.5); WBC 8.8 10x3/uL (4.8-10.8)
[2019-02-24 05:59] LABS: CALC OSMOLALITY 275 mosm/kg (275-300); CALCIUM 7.9 mg/dL (8.5-10.1); CARBON DIOXIDE 31.9 mmol/L (21.0-32.0); CHLORIDE - SERUM 103 mmol/L (98-107); CREATININE - SERUM 0.6 mg/dL (0.6-1.3); GLUCOSE 94 mg/dL (74-106); POTASSIUM - SERUM 3.9 mmol/L (3.5-5.1); SODIUM 139 mmol/L (136-145); eGFR NON AFRICAN AMERICAN > 90 mL/min (90-120)
[2019-02-24 06:05] LABS: UREA NITROGEN 8 mg/dL (7-18)
--- NOTE | 2019-02-24 07:50 | NUR ---
GAVE NORCO FOR PAIN LEVEL 03/02. PT A/O X4, RESP EVEN AND NONLABORED ON RA. LT WRIST IV INFUSING NS AT 125CC/HR. WAITING ON VANC TROUGH. DOLL SURGEON AT BEDSIDE GETTING VITAL SIGNS. PT DENIES ANY OTHER NEEDS AT THIS TIME. CALL LIGHT IN REACH, NAD NOTED, WILL CONTINUE TO MONITOR.
[2019-02-24 08:20] VITALS: BP 143/71
[2019-02-24 11:38] VITALS: BP 124/67
--- NOTE | 2019-02-24 12:35 | MORECARE ---
CASE MANAGEMENT DISCHARGE SUMMARY PATIENT: MEHNAZ LOVELACE JR UNIT: [id number] ADM DATE: 02/15/19 AGE: 58 : 60 SEX: M ROOM/BED: D.2109 AUTHOR: JULES,DOC PHYSICIAN: REFERRING PHYSICIAN: ALEXI LINDSAY MD DATE OF SERVICE: 02/24/19 Discharge Plan Patient Name: MEHNAZ LOVELACE Facility: [facility]:[place] : 1960 Planned Disposition: Home with Home Health Anticipated Discharge Date: Discharge Date: Expected LOS: Initial Reviewer: [email or web address] Initial Review Date: 02/21/2019 Generated: 02/24/19 1:35 pm Comments DCP- Discharge Planning Updated by [id number]: Dwain Wiseman on 02/24/19 11:[address] Patient Name: MEHNAZ LOVELACE Encounter No: [id number] : 1960 Primary Insurance: [place]ID [place] Anticipated DC Date: Planned Disposition: Home DCP follow-up note: CM SPOKE TO PT IN ROOM REGARDIN DISCHARGE PLAN. PT INFORMED CM HE HAS NO FAMILY OR FRIENDS THAT WILL ASSIST HIM WITH PLACE TO STAY THAT HAS UTILITIES TO GET IV ANTIBIOTICS. PT WANTS TO GO HOME AND HAVE THEM THERE. PT HAS NO PRIMARY CARE DOCTOR. PT HAS NO CHOICE ON HOME IV INFUSION PROVIDER. CHOICE LETTER SIGNED. PT STILL DOES NOT WANT TO GO TO A PRISON FOR HOTEL OR MOTEL MANAGER CARE; PT STATES CM CAN CHECK WITH [facility] TO SEE IF THEY WILL TAKE HIM IF HE HAS NO OTHER OPTIONS. CM CALLED AND SPOKE TO BEBA AT [facility], PT'S PREFERRED PROVIDER, WHO INFORMED CM THAT THEY WILL NOT PROVIDE SERVICES FOR IV HOME INFUSION ENVIRONMENT DESCRIBED IS NOT APPROPRIATE. CM CALLED [facility], SPOKE TO DIONE MCCRACKEN WHO INFORMED CM THAT THEY MAY BE ABLE TO TEACH PT TO DO HIS OWN IV PUSH AT HOME BUT PT WILL STILL NEED CLINIC OR OUTPATIENT FOLLOW UP FOR ANY DRESSING CHANGES AND IF THERE ARE ANY NEEDED LABS. CM NOTIFIED [facility]IMMER[facility] TO DETERMINE IF THIS IS AN OPTION. CM CALLED JASWINDER AT [facility], , LEFT MESSAGE ASKING FOR RETURN CALL TO SEE IF [facility] WOULD CONSIDER PT FOR PLACEMENT TO DO IV ANTIBIOTICS. CM WAITING RETURN CALL FROM CHRISTIANO ZIMMERMAN TO DETERMINE IF PT MAY BE CONSIDERED TO GO HOME AND DO HIS OWN IV PUSH ANTIBIOTICS. CM WAITING RETURN CALL FROM [facility] TO DETERMINE IF THEY WILL EVEN CONSIDER PT FOR IV ANTIBIOTICS HE HAS MEDICAID INSURANCE. ALYSHA Georges MANAGEMENT DCP- Discharge Planning Updated by [id number]: Dwain Wiseman on 02/23/19 9:[address] Patient Name: MEHNAZ LOVELACE Encounter No: [id number] : 1960 Primary Insurance: MEDICAID [place] Anticipated DC Date: Planned Disposition: Home with Home Health External Planned Provider: TO BE DETERMINED DCP follow-up note: CM MET WITH PT IN ROOM, DISCUSSED PLACEMENT AT [facility] FOR IV ANTIBIOTICS. PT WAS NOT INFORMED THAT MEDICAID WOULD NOT PAY FOR SHORT TERM SKILLED PLACEMENT. CM EXPLAINED HOTEL OR MOTEL MANAGER CARE PLACEMENT IN [facility] FACILITY. PT STATES HE DOES NOT WANT TO LOSE HIS "CHECK" AND WILL NOT GO TO A PRISON. PT DOES NOT HAVE ELECTRICITY OR RUNNING WATER AT HIS HOME AND WILL "THINK ABOUT" WHO HE MAY POSSIBLY STAY WITH FOR IV ANTIBIOTICS AND HOME HEALTH. PT WILL LET CM KNOW SOON POSSIBLE WHAT HE "CAN FIND OUT." PT REFUSED [facility] CARE PLACEMENT IN NURSING FACILITY. PT WORKING ON HIS PLAN TO STAY WITH A FRIEND AND WILL NOTIFY CM WHEN HE CAN FIND SOMEONE TO ALLOW HIM TO STAY FOR COURSE OF IV ANTIBIOTICS IN THEIR HOME. ALYSHA Georges DCP- Discharge Planning Updated by [id number]: Sybil Walker on 02/21/19 1:[address] Patient Name: MEHNAZ LOVELACE Admission Status: ER Accout number: [id number] Admission Date: 02-15-2019 : 1960 Admission Diagnosis:GASTROINTESTINAL HEMORRHAGE, UNSPECIFIED Attending: ALEXI LINDSAY Current LOS: 6 Anticipated DC Date: Planned Disposition: Primary Insurance: [place]ID [place] Discharge Planning Comments: CM met with patient at bedside after explaining CM role and obtaining verbal consent. CM discussed availability / needs of home health and medical equipment. [facility] is current with [facility]. [facility] doctor told him he will need 4 weeks iv antibiotics. Since he doesn't have electricity and water it is unlikely iv companies will get him meds. Patient states would like [facility] for 4 weeks. natasha signed. CM will continue to Monitor. Travel Journalist: Sybil Walker DCPIA - Discharge Planning Initial Assessment Updated by [id number]: Sybil Walker on 02/21/19 2:27 pm * Is the patient Alert and Oriented? Yes * PCP [facility] * [facility] * Preadmission Environment Home Alone * ADLs Independent * Equipment Cane * Community resources currently utilized Home Health * Please name any agencies selected above. [facility] * Additional services required to return to the preadmission environment? Yes * Can the patient safely return to the preadmission environment? Yes * Has this patient been hospitalized within the prior 30 days at any hospital? Yes Coverage Notice Reviewer: [id number] - Sybil Walker Notice Issued Date-Time: 02/21/2019 14:30 Notice Type: Patient Choice Letter Notice Delivered To: Patient Relationship to Patient: Bending Shed Worker Name: Delivery Method: HAND - Hand Delivered Sherin Days: Prior Verbal Notification: Recipient Understood Notice: Yes Recipient Signature: Yes Med Rec Note Co-signed by Attending: Coverage Notice Comment: pietro campbell. [facility] home Reviewer: [id number] Lis Wiseman Notice Issued Date-Time: 02/24/2019 12:20 Notice Type: Patient Choice Letter Notice Delivered To: Patient Relationship to Patient: Bending Shed Worker Name: Delivery Method: HAND - Hand Delivered Sherin Days: Prior Verbal Notification: Recipient Understood Notice: Yes Recipient Signature: Yes Med Rec Note Co-signed by Attending: Coverage Notice Comment: [facility] AND NO PREFERNCE ON INFUSION COMPANY Last DP export: 02/23/19 9:10 am Patient Name: MEHNAZ LOVELACE Page [phone] at 1235 All edits/amendments must be made on the electronic document DICTATION DATE: 02/24/19 1235 SAWYER CORK SLABS: APOLINAR 02/24/19 1235 RPT#: [id number] DC DATE: STATUS: ADM IN [facility] [address] [place] [address] END OF REPORT
[2019-02-24 14:03] VITALS: BP 145/78
--- NOTE | 2019-02-24 15:56 | NUR ---
GAVE PT NORCO FOR PAIN LEVEL OF 8/10. PT DENIES ANY OTHER NEEDS AT THIS TIME. [facility].
--- NOTE | 2019-02-24 16:23 | MORECARE ---
CASE MANAGEMENT DISCHARGE SUMMARY PATIENT: MEHNAZ LOVELACE JR UNIT: [id number] ADM DATE: 02/15/19 AGE: 58 : 60 SEX: M ROOM/BED: D.2106 AUTHOR: JULES,DOC PHYSICIAN: REFERRING PHYSICIAN: ALEXI LINDSAY MD DATE OF SERVICE: 02/24/19 Discharge Plan Patient Name: MEHNAZ LOVELACE Facility: [facility]:[place] : 1960 Planned Disposition: Nursing Facility ZENA Cert Anticipated Discharge Date: Discharge Date: Expected LOS: Initial Reviewer: [id number] Initial Review Date: 02/21/2019 Generated: 02/24/19 5:23 pm Comments DCP- Discharge Planning Updated by [id number]: Amberly Rees on 02/24/19 3:[address] Patient Name: MEHNAZ LOVELACE Encounter No: [id number] : 1960 Primary Insurance: MEDICAID [place] Anticipated DC Date: Planned Disposition: Home DCP follow-up note: CM SPOKE TO PT IN ROOM REGARDIN DISCHARGE PLAN. PT INFORMED CM HE HAS NO FAMILY OR FRIENDS THAT WILL ASSIST HIM WITH PLACE TO STAY THAT HAS UTILITIES TO GET IV ANTIBIOTICS. PT WANTS TO GO HOME AND HAVE THEM THERE. PT HAS NO PRIMARY CARE DOCTOR. PT HAS NO CHOICE ON HOME IV INFUSION PROVIDER. CHOICE LETTER SIGNED. PT STILL DOES NOT WANT TO GO TO A ALF FOR LONG-TERM CARE; PT STATES CM CAN CHECK WITH [facility] TO SEE IF THEY WILL TAKE HIM IF HE HAS NO OTHER OPTIONS. CM CALLED AND SPOKE TO BEBA AT [facility], PT'S PREFERRED PROVIDER, WHO INFORMED CM THAT THEY WILL NOT PROVIDE SERVICES FOR IV HOME INFUSION ENVIRONMENT DESCRIBED IS NOT APPROPRIATE. CM CALLED [facility], SPOKE TO IDONE MCCRACKEN WHO INFORMED CM THAT THEY MAY BE ABLE TO TEACH PT TO DO HIS OWN IV PUSH AT HOME BUT PT WILL STILL NEED CLINIC OR OUTPATIENT FOLLOW UP FOR ANY DRESSING CHANGES AND IF THERE ARE ANY NEEDED LABS. CM NOTIFIED CHRISTIAN[facility] ZIMMERMAN TO DETERMINE IF THIS IS AN OPTION. CM CALLED JASWINDER AT [facility], , LEFT MESSAGE ASKING FOR RETURN CALL TO SEE IF [facility] WOULD CONSIDER PT FOR PLACEMENT TO DO IV ANTIBIOTICS. CM WAITING RETURN CALL FROM CHRISTIAN[facility] ZIMMERMAN TO DETERMINE IF PT MAY BE CONSIDERED TO GO HOME AND DO HIS OWN IV PUSH ANTIBIOTICS. CM WAITING RETURN CALL FROM [facility] TO DETERMINE IF THEY WILL EVEN CONSIDER PT FOR IV ANTIBIOTICS HE HAS MEDICAID INSURANCE. Amberly Rees, CASE MANAGEMENT Appended by Amberly Rees on 02/24/2019 16:18 CDT: CM SPOKE TO CHRISTIANO ZIMMERMAN AND DR. HOWARD WHO INFORMED CM THAT THEY WILL NOT SEND PT HOME FOR SELF IV PUSH OF IV ANTIBIOTICS. DR. HOWARD INFORMED CM THAT PT WILL GO TO A NURSING FACILITY OR REMAIN IN HOSPITAL FOR DURATION OF ANTIBIOTICS. CM RECEIVED MESSAGE FROM JASWINDER [facility], , WHO INFORMED CM THAT SHE WAS LEAVING FOR THE REMAINDER OF THE DAY. CM TO CALL BACK AND DISCUSS PT'S CONDITION AND NEEDED TREATMENT 02-25-19 TO SEE IF [facility] MAY CONSIDER PT FOR CAD DESIGNER IV ANTIBIOTICS ADMINISTRATION. AMBERLY REES, CASE MANAGEMENT DCP- Discharge Planning Updated by [id number]: Amberly Rees on 02/23/19 9:[address] Patient Name: MEHNAZ LOVELACE Encounter No: [id number] : 1960 Primary Insurance: MEDICAID [facility] DC Date: Planned Disposition: Home with Home Health External Planned Provider: TO BE DETERMINED DCP follow-up note: CM MET WITH PT IN ROOM, DISCUSSED PLACEMENT AT [facility] FOR IV ANTIBIOTICS. PT WAS NOT INFORMED THAT MEDICAID WOULD NOT PAY FOR SHORT TERM SKILLED PLACEMENT. CM EXPLAINED LONG-TERM CARE PLACEMENT IN [facility] FACILITY. PT STATES HE DOES NOT WANT TO LOSE HIS "CHECK" AND WILL NOT GO TO A ALF. PT DOES NOT HAVE ELECTRICITY OR RUNNING WATER AT HIS HOME AND WILL "THINK ABOUT" WHO HE MAY POSSIBLY STAY WITH FOR IV ANTIBIOTICS AND HOME HEALTH. PT WILL LET CM KNOW SOON POSSIBLE WHAT HE "CAN FIND OUT." PT REFUSED LONG-TERM CARE PLACEMENT IN NURSING FACILITY. PT WORKING ON HIS PLAN TO STAY WITH A FRIEND AND WILL NOTIFY CM WHEN HE CAN FIND SOMEONE TO ALLOW HIM TO STAY FOR COURSE OF IV ANTIBIOTICS IN THEIR HOME. Amberly Rees CASE LASHAWN DCP- Discharge Planning Updated by [id number]: Sybil Walker on 02/21/19 1:[address] Patient Name: MEHNAZ LOVELACE Admission Status: ER Accout number: [id number] Admission Date: 02-15-2019 : 1960 Admission Diagnosis:GASTROINTESTINAL HEMORRHAGE, UNSPECIFIED Attending: ALEXI LINDSAY Current LOS: 6 Anticipated DC Date: Planned Disposition: Primary Insurance: MEDICAID [place] Discharge Planning Comments: CM met with patient at bedside after explaining CM role and obtaining verbal consent. CM discussed availability / needs of home health and medical equipment. is current with [facility]. [facility] doctor told him he will need 4 weeks iv antibiotics. Since he doesn't have electricity and water it is unlikely iv companies will get him meds. Patient states would like [place] [facility] for 4 [facility]. natasha signed. CM will continue to Monitor. Communications Project Manager: Sybil Walker DCPIA - Discharge Planning Initial Assessment Updated by [id number]: Sybil Walker on 02/21/19 2:27 pm * Is the patient Alert and Oriented? Yes * PCP [facility] * [facility] * Preadmission Environment Home Alone * ADLs Independent * Equipment Cane * Community resources currently utilized Home Health * Please name any agencies selected above. [facility] * Additional services required to return to the preadmission environment? Yes * Can the patient safely return to the preadmission environment? Yes * Has this patient been hospitalized within the prior 30 days at any hospital? Yes Coverage Notice Reviewer: [id number] - Sybil Walker Notice Issued Date-Time: 02/21/2019 14:30 Notice Type: Patient Choice Letter Notice Delivered To: Patient Relationship to Patient: Global Process Owner Name: Delivery Method: HAND - Hand Delivered Sherin Days: Prior Verbal Notification: Recipient Understood Notice: Yes Recipient Signature: Yes Med Rec Note Co-signed by Attending: Coverage Notice Comment: [facility] lucero resume. [facility] [place] [facility] Reviewer: [id number] - Amberly Rees Notice Issued Date-Time: 02/24/2019 12:20 Notice Type: Patient Choice Letter Notice Delivered To: Patient Relationship to Patient: Global Process Owner Name: Delivery Method: HAND - Hand Delivered Sherin Days: Prior Verbal Notification: Recipient Understood Notice: Yes Recipient Signature: Yes Med Rec Note Co-signed by Attending: Coverage Notice Comment: [facility] AND NO PREFERNCE ON INFUSION COMPANY Last DP export: 02/24/19 11:35 am Patient Name: MEHNAZ LOVELACE Page [id number] at 1623 All edits/amendments must be made on the electronic document DICTATION DATE: 02/24/191622 CREDIT PORTFOLIO MANAGER: APOLINAR 02/24/191622 RPT#: [id number] DC DATE: STATUS: ADM IN [facility] [address] [place] [address] END OF REPORT
--- NOTE | 2019-02-24 18:13 | NUR ---
COMPLETE LINEN CHANGE PROVIDED AT THIS TIME. PT UP TO CHAIR, DENIES ANY NEED AT THIS TIME. CALL LIGHT IN REACH, NAD NOTED.
--- NOTE | 2019-02-24 18:45 | NUR ---
EVENING ROUNDS COMPLETE, PT SITTING UP IN CHAIR NEXT TO BED. NO SIGNS OF DISTRESS, PT DENIES ANY PAIN AT THIS TIME. CL IN REACH, CONT WITH POC.
[2019-02-24 20:00] VITALS: BP 147/73
[2019-02-25] VITALS: BP 143/70
[2019-02-25 04:00] VITALS: BP 135/70
[2019-02-25 07:19] LABS: BASOPHILS 0.6 % (0-2); EOSINOPHILS 3.1 % (0-7); HEMATOCRIT 27.9 % (42.0-54.0); IMMATURE GRANULOCYTES 0.1 % (0-5); LYMPHOCYTES 26.1 % (15-50); MCH 27.6 pg (26.0-34.0); MCHC 32.3 g/dL (31.0-37.0); MCV 85.6 fL (80.0-100.0); MEAN PLATELET VOLUME 8.5 fL (7.4-10.4); MONOCYTES 13.2 % (2-11); NEUTROPHILS 56.9 % (40-80); PLATELET COUNT 408 10x3/uL (130-400); RBC 3.26 10x6/uL (4.20-6.10); RDW 15.6 % (11.5-14.5); WBC 7.1 10x3/uL (4.8-10.8)
--- NOTE | 2019-02-25 07:30 | NUR ---
PT LAYING IN BED. WATCHING TV. ALERT AND ORIENTED. HAS NO FURTHER NEEDS AT THIS TIME. BED LOW. CL IN REACH.
[2019-02-25 07:40] LABS: CALC OSMOLALITY 276 mosm/kg (275-300); CALCIUM 8.2 mg/dL (8.5-10.1); CARBON DIOXIDE 33.1 mmol/L (21.0-32.0); CHLORIDE - SERUM 103 mmol/L (98-107); CREATININE - SERUM 0.5 mg/dL (0.6-1.3); GLUCOSE 92 mg/dL (74-106); POTASSIUM - SERUM 3.9 mmol/L (3.5-5.1); SODIUM 140 mmol/L (136-145); UREA NITROGEN 8 mg/dL (7-18); VANCOMYCIN - TROUGH 17.9 ug/mL (10.0-20.0); eGFR NON AFRICAN AMERICAN > 90 mL/min (90-120)
--- NOTE | 2019-02-25 08:08 | MORECARE ---
CASE MANAGEMENT DISCHARGE SUMMARY PATIENT: MEHNAZ LOVELACE JR UNIT: [id number] ADM DATE: 02/15/19 AGE: 58 : 60 SEX: M ROOM/BED: D.2102 AUTHOR: JULES,DOC PHYSICIAN: REFERRING PHYSICIAN: ALEXI LINDSAY MD DATE OF SERVICE: 02/25/19 Discharge Plan Patient Name: MEHNAZ LOVELACE Facility: [facility]:[place] : 1960 Planned Disposition: Nursing Facility ZENA Cert Anticipated Discharge Date: 02/26/19 Discharge Date: Expected LOS: 11 Initial Reviewer: [id number] Initial Review Date: 02/21/2019 Generated: 02/25/19 9:08 am Comments DCP- Discharge Planning Updated by [id number]: Amberly Rees on 02/24/19 3:[address] Patient Name: MEHNAZ LOVELACE Encounter No: [id number] : 1960 Primary Insurance: MEDICAID [place] Anticipated DC Date: Planned Disposition: Home DCP follow-up note: CM SPOKE TO PT IN ROOM REGARDIN DISCHARGE PLAN. PT INFORMED CM HE HAS NO FAMILY OR FRIENDS THAT WILL ASSIST HIM WITH PLACE TO STAY THAT HAS UTILITIES TO GET IV ANTIBIOTICS. PT WANTS TO GO HOME AND HAVE THEM THERE. PT HAS NO PRIMARY CARE DOCTOR. PT HAS NO CHOICE ON HOME IV INFUSION PROVIDER. CHOICE LETTER SIGNED. PT STILL DOES NOT WANT TO GO TO A LONG TERM FOR HEAD MIXER CARE; PT STATES CM CAN CHECK WITH [facility] TO SEE IF THEY WILL TAKE HIM IF HE HAS NO OTHER OPTIONS. CM CALLED AND SPOKE TO BEBA AT [facility], PT'S PREFERRED PROVIDER, WHO INFORMED CM THAT THEY WILL NOT PROVIDE SERVICES FOR IV HOME INFUSION ENVIRONMENT DESCRIBED IS NOT APPROPRIATE. CM CALLED [facility], SPOKE TO DIONE MCCRACKEN WHO INFORMED CM THAT THEY MAY BE ABLE TO TEACH PT TO DO HIS OWN IV PUSH AT HOME BUT PT WILL STILL NEED CLINIC OR OUTPATIENT FOLLOW UP FOR ANY DRESSING CHANGES AND IF THERE ARE ANY NEEDED LABS. CM NOTIFIED CHRISTIANO ZIMMERMAN TO DETERMINE IF THIS IS AN OPTION. CM CALLED JASWINDER AT [facility], , LEFT MESSAGE ASKING FOR RETURN CALL TO SEE IF [facility] WOULD CONSIDER PT FOR PLACEMENT TO DO IV ANTIBIOTICS. CM WAITING RETURN CALL FROM [facility]ST[facility] ZIMMERMAN TO DETERMINE IF PT MAY BE CONSIDERED TO GO HOME AND DO HIS OWN IV PUSH ANTIBIOTICS. CM WAITING RETURN CALL FROM [facility] TO DETERMINE IF THEY WILL EVEN CONSIDER PT FOR IV ANTIBIOTICS HE HAS MEDICAID INSURANCE. Amberly Rees, CASE MANAGEMENT Appended by Amberly Rees on 02/24/2019 16:18 CDT: CM SPOKE TO CHRISTIANO ZIMMERMAN AND DR. HOWARD WHO INFORMED CM THAT THEY WILL NOT SEND PT HOME FOR SELF IV PUSH OF IV ANTIBIOTICS. DR. HOWARD INFORMED CM THAT PT WILL GO TO A NURSING FACILITY OR REMAIN IN HOSPITAL FOR DURATION OF ANTIBIOTICS. CM RECEIVED MESSAGE FROM JASWINDER OF [facility], , WHO INFORMED CM THAT SHE WAS LEAVING FOR THE REMAINDER OF THE DAY. CM TO CALL BACK AND DISCUSS PT'S CONDITION AND NEEDED TREATMENT 02-25-19 TO SEE IF [facility] MAY CONSIDER PT FOR ALF IV ANTIBIOTICS ADMINISTRATION. AMBERLY REES, CASE MANAGEMENT DCP- Discharge Planning Updated by [id number]: Amberly Rees on 02/23/19 9:[address] Patient Name: MEHNAZ LOVELACE Encounter No: [id number] : 1960 Primary Insurance: MEDICAID [place] Anticipated DC Date: Planned Disposition: Home with Home Health External Planned Provider: TO BE DETERMINED DCP follow-up note: CM MET WITH PT IN ROOM, DISCUSSED PLACEMENT AT [facility] FOR IV ANTIBIOTICS. PT WAS NOT INFORMED THAT MEDICAID WOULD NOT PAY FOR SHORT TERM SKILLED PLACEMENT. CM EXPLAINED HEAD MIXER CARE PLACEMENT IN [facility] FACILITY. PT STATES HE DOES NOT WANT TO LOSE HIS "CHECK" AND WILL NOT GO TO A LONG TERM. PT DOES NOT HAVE ELECTRICITY OR RUNNING WATER AT HIS HOME AND WILL "THINK ABOUT" WHO HE MAY POSSIBLY STAY WITH FOR IV ANTIBIOTICS AND HOME HEALTH. PT WILL LET CM KNOW SOON POSSIBLE WHAT HE "CAN FIND OUT." PT REFUSED HEAD MIXER CARE PLACEMENT IN NURSING FACILITY. PT WORKING ON HIS PLAN TO STAY WITH A FRIEND AND WILL NOTIFY CM WHEN HE CAN FIND SOMEONE TO ALLOW HIM TO STAY FOR COURSE OF IV ANTIBIOTICS IN THEIR HOME. Amberly Rees, CASE MANAGEMENT DCP- Discharge Planning Updated by [id number]: Sybil Walker on 02/21/19 1:[address] Patient Name: MEHNAZ LOVELACE Admission Status: ER Accout number: [id number] Admission Date: 02-15-2019 : 1960 Admission Diagnosis:GASTROINTESTINAL HEMORRHAGE, UNSPECIFIED Attending: ALEXI LINDSAY Current LOS: 6 Anticipated DC Date: Planned Disposition: Primary Insurance: MEDICAID [place] Discharge Planning Comments: CM met with patient at bedside after explaining CM role and obtaining verbal consent. CM discussed availability / needs of home health and medical equipment. is current with [facility]. [facility] doctor told him he will need 4 weeks iv antibiotics. Since he doesn't have electricity and water it is unlikely iv companies will get him meds. Patient states would like [place] [facility] for 4 weeks. natasha signed. CM will continue to Monitor. High Density Talc Coater Operator: Sybil Walker DCPIA - Discharge Planning Initial Assessment Updated by [id number]: Sybil Walkre on 02/21/19 2:27 pm * Is the patient Alert and Oriented? Yes * PCP [facility] * [facility] * Preadmission Environment Home Alone * ADLs Independent * Equipment Cane * Community resources currently utilized Home Health * Please name any agencies selected above. [facility] * Additional services required to return to the preadmission environment? Yes * Can the patient safely return to the preadmission environment? Yes * Has this patient been hospitalized within the prior 30 days at any hospital? Yes Coverage Notice Reviewer: [id number] - Sybilgallito Walker Notice Issued Date-Time: 02/21/2019 14:30 Notice Type: Patient Choice Letter Notice Delivered To: Patient Relationship to Patient: Information Systems Professor Name: Delivery Method: HAND - Hand Delivered Sherin Days: Prior Verbal Notification: Recipient Understood Notice: Yes Recipient Signature: Yes Med Rec Note Co-signed by Attending: Coverage Notice Comment: [facility]ietro lucero resume. [facility] [place] [facility] Reviewer: [id number] Lis Rees Notice Issued Date-Time: 02/24/2019 12:20 Notice Type: Patient Choice Letter Notice Delivered To: Patient Relationship to Patient: Information Systems Professor Name: Delivery Method: HAND - Hand Delivered Sherin Days: Prior Verbal Notification: Recipient Understood Notice: Yes Recipient Signature: Yes Med Rec Note Co-signed by Attending: Coverage Notice Comment: [facility] AND NO PREFERNCE ON INFUSION COMPANY Last DP export: 02/24/19 3:23 pm Patient Name: MEHNAZ LOVELACE Page [phone] at 0808 All edits/amendments must be made on the electronic document DICTATION DATE: 02/25/19807 MINES INSPECTOR: APOLINAR 02/25/19807 RPT#: [id number] DC DATE: STATUS: ADM IN [facility] [address] [place] [address] END OF REPORT
--- NOTE | 2019-02-25 08:22 | MORECARE ---
CASE MANAGEMENT DISCHARGE SUMMARY PATIENT: MEHNAZ LOVELACE JR UNIT: [id number] ADM DATE: 02/15/19 AGE: 58 : 60 SEX: M ROOM/BED: D.2107 AUTHOR: JULES,DOC PHYSICIAN: REFERRING PHYSICIAN: ALEXI LINDSAY MD DATE OF SERVICE: 02/25/19 Discharge Plan Patient Name: MEHNAZ LOVELACE Facility: [facility]:[place] : 1960 Planned Disposition: Nursing Facility ZENA Cert Anticipated Discharge Date: 02/26/19 Discharge Date: Expected LOS: 11 Initial Reviewer: [id number] Initial Review Date: 02/21/2019 Generated: 02/25/19 9:22 am Comments DCP- Discharge Planning Updated by [id number]: Amberly Rees on 02/24/19 3:[address] Patient Name: MEHNAZ LOVELACE Encounter No: [id number] : 1960 Primary Insurance: MEDICAID [place] Anticipated DC Date: Planned Disposition: Home DCP follow-up note: CM SPOKE TO PT IN ROOM REGARDIN DISCHARGE PLAN. PT INFORMED CM HE HAS NO FAMILY OR FRIENDS THAT WILL ASSIST HIM WITH PLACE TO STAY THAT HAS UTILITIES TO GET IV ANTIBIOTICS. PT WANTS TO GO HOME AND HAVE THEM THERE. PT HAS NO PRIMARY CARE DOCTOR. PT HAS NO CHOICE ON HOME IV INFUSION PROVIDER. CHOICE LETTER SIGNED. 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 CM CALLED AND SPOKE TO BEBA AT [facility], PT'S PREFERRED PROVIDER, WHO INFORMED CM THAT THEY WILL NOT PROVIDE SERVICES FOR IV HOME INFUSION ENVIRONMENT DESCRIBED IS NOT APPROPRIATE. CM CALLED [facility], SPOKE TO DIONE MCCRACKEN WHO INFORMED CM THAT THEY MAY BE ABLE TO TEACH PT TO DO HIS OWN IV PUSH AT HOME BUT PT WILL STILL NEED CLINIC OR OUTPATIENT FOLLOW UP FOR ANY DRESSING CHANGES AND IF THERE ARE ANY NEEDED LABS. CM NOTIFIED CHRISTIANO ZIMMERMAN TO DETERMINE IF THIS IS AN OPTION. CM CALLED JASWINDER AT [facility], , LEFT MESSAGE ASKING FOR RETURN CALL TO SEE IF [facility] WOULD CONSIDER PT FOR PLACEMENT TO DO IV ANTIBIOTICS. CM WAITING RETURN CALL FROM [facility]RIST[facility] ZIMMERMAN TO DETERMINE IF PT MAY BE CONSIDERED TO GO HOME AND DO HIS OWN IV PUSH ANTIBIOTICS. CM WAITING RETURN CALL FROM [facility] TO DETERMINE IF THEY WILL EVEN CONSIDER PT FOR IV ANTIBIOTICS HE HAS MEDICAID INSURANCE. Amberly Rees, CASE MANAGEMENT Appended by Amberly Rees on 02/24/2019 16:18 CDT: CM SPOKE TO CHRISTIANO ZIMMERMAN AND DR. HOWARD WHO INFORMED CM THAT THEY WILL NOT SEND PT HOME FOR SELF IV PUSH OF IV ANTIBIOTICS. DR. HOWARD INFORMED CM THAT PT WILL GO TO A NURSING FACILITY OR REMAIN IN HOSPITAL FOR DURATION OF ANTIBIOTICS. CM RECEIVED MESSAGE FROM JASWINDER OF [facility], , WHO INFORMED CM THAT SHE WAS LEAVING FOR THE REMAINDER OF THE DAY. CM TO CALL BACK AND DISCUSS PT'S CONDITION AND NEEDED TREATMENT 02-25-19 TO SEE IF [facility] MAY CONSIDER PT FOR SNF IV ANTIBIOTICS ADMINISTRATION. AMBERLY REES, CASE MANAGEMENT DCP- Discharge Planning Updated by [id number]: Amberly Rees on 02/23/19 9:[address] Patient Name: MEHNAZ LOVELACE Encounter No: [id number] : 1960 Primary Insurance: MEDICAID [place] Anticipated DC Date: Planned Disposition: Home with Home Health External Planned Provider: TO BE DETERMINED DCP follow-up note: CM MET WITH PT IN ROOM, DISCUSSED PLACEMENT AT [facility] FOR IV ANTIBIOTICS. PT WAS NOT INFORMED THAT MEDICAID WOULD NOT PAY FOR SHORT TERM SKILLED PLACEMENT. 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 PT STATES HE DOES NOT WANT TO LOSE HIS "CHECK" AND WILL NOT GO TO A JAIL. PT DOES NOT HAVE ELECTRICITY OR RUNNING WATER AT HIS HOME AND WILL "THINK ABOUT" WHO HE MAY POSSIBLY STAY WITH FOR IV ANTIBIOTICS AND HOME HEALTH. PT WILL LET CM KNOW SOON POSSIBLE WHAT HE "CAN FIND OUT." PT REFUSED DIRECTOR OF MARKETING [employer] PERFORMANCE ADS CARE PLACEMENT IN NURSING FACILITY. PT WORKING ON HIS PLAN TO STAY WITH A FRIEND AND WILL NOTIFY CM WHEN HE CAN FIND SOMEONE TO ALLOW HIM TO STAY FOR COURSE OF IV ANTIBIOTICS IN THEIR HOME. Amberly Rees, CASE MANAGEMENT DCP- Discharge Planning Updated by [id number]: Sybil Walker on 02/21/19 1:[address] Patient Name: MEHNAZ LOVELACE Admission Status: ER Accout number: [id number] Admission Date: 02-15-2019 : 1960 Admission Diagnosis:GASTROINTESTINAL HEMORRHAGE, UNSPECIFIED Attending: ALEXI LINDSAY Current LOS: 6 Anticipated DC Date: Planned Disposition: Primary Insurance: MEDICAID [place] Discharge Planning Comments: CM met with patient at bedside after explaining CM role and obtaining verbal consent. CM discussed availability / needs of home health and medical equipment. is current with [facility]. [facility] doctor told him he will need 4 weeks iv antibiotics. Since he doesn't have electricity and water it is unlikely iv companies will get him meds. Patient states would like [place] [facility] for 4 weeks. natasha signed. CM will continue to Monitor. Steward/Stewardess Third: Sybil Walker DCPIA - Discharge Planning Initial Assessment Updated by [id number]: Sybil Walker on 02/21/19 2:27 pm * Is the patient Alert and Oriented? Yes * PCP [facility] * [facility] * Preadmission Environment Home Alone * ADLs Independent * Equipment Cane * Community resources currently utilized Home Health * Please name any agencies selected above. [facility] * Additional services required to return to the preadmission environment? Yes * Can the patient safely return to the preadmission environment? Yes * Has this patient been hospitalized within the prior 30 days at any hospital? Yes External Providers External Provider: [facility] Next Contact Date: 02/25/2019 Service Request Date: Service Type: Resolution: Reviewer: Comments: Coverage Notice Reviewer: [id number] - Sybilgallito Walker Notice Issued Date-Time: 02/21/2019 14:30 Notice Type: Patient Choice Letter Notice Delivered To: Patient Relationship to Patient: Bus Steward Name: Delivery Method: HAND - Hand Delivered Sherin Days: Prior Verbal Notification: Recipient Understood Notice: Yes Recipient Signature: Yes Med Rec Note Co-signed by Attending: Coverage Notice Comment: pietro lucero resume. [facility] [place] [facility] Reviewer: [id number] - Amberly Rees Notice Issued Date-Time: 02/24/2019 12:20 Notice Type: Patient Choice Letter Notice Delivered To: Patient Relationship to Patient: Bus Steward Name: Delivery Method: HAND - Hand Delivered Sherin Days: Prior Verbal Notification: Recipient Understood Notice: Yes Recipient Signature: Yes Med Rec Note Co-signed by Attending: Coverage Notice Comment: [facility] AND NO PREFERNCE ON INFUSION COMPANY Last DP export: 02/25/19 7:08 am Patient Name: MEHNAZ LOVELACE Page [id number] at 0822 All edits/amendments must be made on the electronic document DICTATION DATE: 02/25/19821 SUBGRADE TESTER: APOLINAR 02/25/19821 RPT#: [id number] DC DATE: STATUS: ADM IN [facility] [address] [place] [address] END OF REPORT
--- NOTE | 2019-02-25 08:30 | MORECARE ---
CASE MANAGEMENT DISCHARGE SUMMARY PATIENT: MEHNAZ LOVELACE JR UNIT: [id number] ADM DATE: 02/15/19 AGE: 58 : 60 SEX: M ROOM/BED: D.3277 AUTHOR: JULES,DOC PHYSICIAN: REFERRING PHYSICIAN: ALEXI LINDSAY MD DATE OF SERVICE: 02/25/19 Discharge Plan Patient Name: MEHNAZ LOVELACE Facility: [facility]:[place] : 1960 Planned Disposition: Nursing Facility [facility] Cert Anticipated Discharge Date: 02/26/19 Discharge Date: Expected LOS: 11 Initial Reviewer: [id number] Initial Review Date: 02/21/2019 Generated: 02/25/19 9:30 am Comments DCP- Discharge Planning Updated by [id number]: Amberly Rees on 02/25/19 7:[address] Patient Name: MEHNAZ LOVELACE Encounter No: [id number] : 1960 Primary Insurance: MEDICAID [place] Anticipated DC Date: 02-26-2019 Planned Disposition: Nursing Facility [facility] Cert External Planned Provider: [facility], LONG TERM CARE MEDICAID BED DCP follow-up note: CM FAXED REFERRAL TO [facility] AT [phone]. CM WAITING ON ADMISSION DETERMINATION FROM [facility] FOR MASH FILTER OPERATOR ANTIBIOTIC THERAPY / CARE. AMBERLY REES, CASE MANAGMENT Amberly Rees DCP- Discharge Planning Updated by [id number]: Amberly Rees on 02/24/19 3:[address] Patient Name: MEHNAZ LOVELACE Encounter No: [id number] : 1960 Primary Insurance: MEDICAID [place] Anticipated DC Date: Planned Disposition: Home DCP follow-up note: CM SPOKE TO PT IN ROOM REGARDIN DISCHARGE PLAN. PT INFORMED CM HE HAS NO FAMILY OR FRIENDS THAT WILL ASSIST HIM WITH PLACE TO STAY THAT HAS UTILITIES TO GET IV ANTIBIOTICS. PT WANTS TO GO HOME AND HAVE THEM THERE. PT HAS NO PRIMARY CARE DOCTOR. PT HAS NO CHOICE ON HOME IV INFUSION PROVIDER. CHOICE LETTER SIGNED. PT STILL DOES NOT WANT TO GO TO A [facility] FOR JAIL CARE; PT STATES CM CAN CHECK WITH [facility] TO SEE IF THEY WILL TAKE HIM IF HE HAS NO OTHER OPTIONS. CM CALLED AND SPOKE TO BEBA AT [facility], PT'S PREFERRED PROVIDER, WHO INFORMED CM THAT THEY WILL NOT PROVIDE SERVICES FOR IV HOME INFUSION ENVIRONMENT DESCRIBED IS NOT APPROPRIATE. CM CALLED [facility], SPOKE TO DIONE MCCRACKEN WHO INFORMED CM THAT THEY MAY BE ABLE TO TEACH PT TO DO HIS OWN IV PUSH AT HOME BUT PT WILL STILL NEED CLINIC OR OUTPATIENT FOLLOW UP FOR ANY DRESSING CHANGES AND IF THERE ARE ANY NEEDED LABS. CM NOTIFIED CHRISTIANO ZIMMERMAN TO DETERMINE IF THIS IS AN OPTION. CM CALLED JASWINDER AT [facility], , LEFT MESSAGE ASKING FOR RETURN CALL TO SEE IF [facility] WOULD CONSIDER PT FOR PLACEMENT TO DO IV ANTIBIOTICS. CM WAITING RETURN CALL FROM CHRISTIANO ZIMMERMAN TO DETERMINE IF PT MAY BE CONSIDERED TO GO HOME AND DO HIS OWN IV PUSH ANTIBIOTICS. CM WAITING RETURN CALL FROM [facility] TO DETERMINE IF THEY WILL EVEN CONSIDER PT FOR IV ANTIBIOTICS HE HAS MEDICAID INSURANCE. Amberly Rees, CASE MANAGEMENT Appended by Amberly Rees on 02/24/2019 16:18 CDT: CM SPOKE TO CHRISTIANO ZIMMERMAN AND DR. HOWARD WHO INFORMED CM THAT THEY WILL NOT SEND PT HOME FOR SELF IV PUSH OF IV ANTIBIOTICS. DR. HOWARD INFORMED CM THAT PT WILL GO TO A NURSING FACILITY OR REMAIN IN HOSPITAL FOR DURATION OF ANTIBIOTICS. CM RECEIVED MESSAGE FROM JASWINDER OF [facility], , WHO INFORMED CM THAT SHE WAS LEAVING FOR THE REMAINDER OF THE DAY. CM TO CALL BACK AND DISCUSS PT'S CONDITION AND NEEDED TREATMENT 02-25-19 TO SEE IF [facility] MAY CONSIDER PT FOR MASH FILTER OPERATOR IV ANTIBIOTICS ADMINISTRATION. AMBERLY REES, CASE MANAGEMENT DCP- Discharge Planning Updated by [id number]: Amberly Rees on 02/23/19 9:[address] Patient Name: MEHNAZ LOVELACE Encounter No: [id number] : 1960 Primary Insurance: MEDICAID [place] Anticipated DC Date: Planned Disposition: Home with Home Health External Planned Provider: TO BE DETERMINED DCP follow-up note: CM MET WITH PT IN ROOM, DISCUSSED PLACEMENT AT [facility] FOR IV ANTIBIOTICS. PT WAS NOT INFORMED THAT MEDICAID WOULD NOT PAY FOR SHORT TERM SKILLED PLACEMENT. CM EXPLAINED MASH FILTER OPERATOR CARE PLACEMENT IN DETENTION FACILITY. PT STATES HE DOES NOT WANT TO LOSE HIS "CHECK" AND WILL NOT GO TO A [facility]. PT DOES NOT HAVE ELECTRICITY OR RUNNING WATER AT HIS HOME AND WILL "THINK ABOUT" WHO HE MAY POSSIBLY STAY WITH FOR IV ANTIBIOTICS AND HOME HEALTH. PT WILL LET CM KNOW SOON POSSIBLE WHAT HE "CAN FIND OUT." PT REFUSED JAIL CARE PLACEMENT IN NURSING FACILITY. PT WORKING ON HIS PLAN TO STAY WITH A FRIEND AND WILL NOTIFY CM WHEN HE CAN FIND SOMEONE TO ALLOW HIM TO STAY FOR COURSE OF IV ANTIBIOTICS IN THEIR HOME. Amberly Rees, CASE MANAGEMENT DCP- Discharge Planning Updated by [id number]: Sybil Walker on 02/21/19 1:[address] Patient Name: MEHNAZ LOVELACE Admission Status: ER Accout number: [id number] Admission Date: 02-15-2019 : 1960 Admission Diagnosis:GASTROINTESTINAL HEMORRHAGE, UNSPECIFIED Attending: ALEXI LINDSAY Current LOS: 6 Anticipated DC Date: Planned Disposition: Primary Insurance: MEDICAID [place] Discharge Planning Comments: CM met with patient at bedside after explaining CM role and obtaining verbal consent. CM discussed availability / needs of home health and medical equipment. [facility] is current with [facility]. [facility] doctor told him he will need 4 weeks iv antibiotics. Since he doesn't have electricity and water it is unlikely iv companies will get him meds. Patient [facility]. natasha signed. CM will continue to Monitor. Sidewalk Repairer: Sybil Walker DCPIA - Discharge Planning Initial Assessment Updated by [id number]: Sybil Walker on 02/21/19 2:27 pm * Is the patient Alert and Oriented? Yes * PCP [facility] * [facility] * Preadmission Environment Home Alone * ADLs Independent * Equipment Cane * Community resources currently utilized Home Health * Please name any agencies selected above. [facility] * Additional services required to return to the preadmission environment? Yes * Can the patient safely return to the preadmission environment? Yes * Has this patient been hospitalized within the prior 30 days at any hospital? Yes Coverage Notice Reviewer: [id number] - Sybil Walker Notice Issued Date-Time: 02/21/2019 14:30 Notice Type: Patient Choice Letter Notice Delivered To: Patient Relationship to Patient: Lithographic Press Operator Apprentice Name: Delivery Method: HAND - Hand Delivered Sherin Days: Prior Verbal Notification: Recipient Understood Notice: Yes Recipient Signature: Yes Med Rec Note Co-signed by Attending: Coverage Notice Comment: [facility]. [facility] Reviewer: [id number] Lis Rees Notice Issued Date-Time: 02/24/2019 12:20 Notice Type: Patient Choice Letter Notice Delivered To: Patient Relationship to Patient: Lithographic Press Operator Apprentice Name: Delivery Method: HAND - Hand Delivered Sherin Days: Prior Verbal Notification: Recipient Understood Notice: Yes Recipient Signature: Yes Med Rec Note Co-signed by Attending: Coverage Notice Comment: [facility] AND NO PREFERNCE ON INFUSION COMPANY Last DP export: 02/25/19 7:22 am Patient Name: MEHNAZ LOVELACE Page [id number] at 0830 All edits/amendments must be made on the electronic document DICTATION DATE: 02/25/19829 SUPERVISOR [employer]: APOLINAR 02/25/19829 RPT#: [id number] DC DATE: STATUS: ADM IN [facility] [address] [place] [address] END OF REPORT
[2019-02-25 09:26] VITALS: BP 145/97
[2019-02-25 12:08] VITALS: BP 145/72
--- NOTE | 2019-02-25 12:44 | MORECARE ---
CASE MANAGEMENT DISCHARGE SUMMARY PATIENT: MEHNAZ LOVELACE JR UNIT: [id number] ADM DATE: 02/15/19 AGE: 58 : 60 SEX: M ROOM/BED: D.2103 AUTHOR: MAN VICENTE PHYSICIAN: REFERRING PHYSICIAN: ALEXI LINDSAY MD DATE OF SERVICE: 02/25/19 Discharge Plan Patient Name: MEHNAZ LOVELACE Facility: [facility]:[place] : 1960 Planned Disposition: Nursing Facility [facility] Cert Anticipated Discharge Date: 02/26/19 Discharge Date: Expected LOS: 11 Initial Reviewer: [id number] Initial Review Date: 02/21/2019 Generated: 02/25/19 1:44 pm Comments DCP- Discharge Planning Updated by [id number]: Deepthi Espitia on 02/25/19 11:[address] @ 1133 RECEIVED A CALL FROM [facility] ZIMMERMAN APN. PER DR CARBAJAL'S NOTE, "This case requires a higher level of care. I would recommend transfer to a neurosurgery or ortho spine service at a [facility]." AT HER REQUEST I WILL WORK ON A TRANSFER. DR HOWARD HAS STATED HE WOULD DO THE DOC TO DOC AND GAVE ME HIS CELL NUMBER. @1138, I OBTAINED ADMINISTRATION AUTH FOR TRANSFER FROM KIRSTEN RANDALL THROUGH [facility]. @113, PLACED A CALL TO THE TRANSFER CENTER, AND SPOKE WITH SABI. ALL DETAILS GIVEN. FACESHEET FAXED TO [phone]. WILL WAIT FOR CALL BACK. ALL IMAGING HAS BEEN BURNED TO A DISK AND ARE IN TRANSFER FOLDER. DCP- Discharge Planning Updated by [id number]: Amberly Rees on 02/25/19 7:[address] Patient Name: MEHNAZ LOVELACE Encounter No: [id number] : 1960 Primary Insurance: MEDICAID [place] Anticipated DC Date: 02-26-2019 Planned Disposition: Nursing Facility [facility] Cert External Planned Provider: [facility], LONG TERM CARE MEDICAID BED DCP follow-up note: CM FAXED REFERRAL TO [facility] AT [phone]. CM WAITING ON ADMISSION DETERMINATION FROM [facility] FOR MANAGER ERP ANTIBIOTIC THERAPY / CARE. AMBERLY REES, CASE MANAGMENT Amberly Rees DCP- Discharge Planning Updated by [id number]: Amberly Rees on 02/24/19 3:[address] Patient Name: MEHNAZ LOVELACE Encounter No: [id number] : 1960 Primary Insurance: MEDICAID [facility] DC Date: Planned Disposition: Home DCP follow-up note: CM SPOKE TO PT IN ROOM REGARDIN DISCHARGE PLAN. PT INFORMED CM HE HAS NO FAMILY OR FRIENDS THAT WILL ASSIST HIM WITH PLACE TO STAY THAT HAS UTILITIES TO GET IV ANTIBIOTICS. PT WANTS TO GO HOME AND HAVE THEM THERE. PT HAS NO PRIMARY CARE DOCTOR. PT HAS NO CHOICE ON HOME IV INFUSION PROVIDER. CHOICE LETTER SIGNED. PT STILL DOES NOT WANT TO GO TO A PRISON FOR [facility] CARE; PT STATES CM CAN CHECK WITH [facility] TO SEE IF THEY WILL TAKE HIM IF HE HAS NO OTHER OPTIONS. CM CALLED AND SPOKE TO BEBA AT [facility], PT'S PREFERRED PROVIDER, WHO INFORMED CM THAT THEY WILL NOT PROVIDE SERVICES FOR IV HOME INFUSION ENVIRONMENT DESCRIBED IS NOT APPROPRIATE. CM CALLED [facility], SPOKE TO DIONE MCCRACKEN WHO INFORMED CM THAT THEY MAY BE ABLE TO TEACH PT TO DO HIS OWN IV PUSH AT HOME BUT PT WILL STILL NEED CLINIC OR OUTPATIENT FOLLOW UP FOR ANY DRESSING CHANGES AND IF THERE ARE ANY NEEDED LABS. CM NOTIFIED CHRISTIANO ZIMMERMAN TO DETERMINE IF THIS IS AN OPTION. CM CALLED JASWINDER AT [facility], , LEFT MESSAGE ASKING FOR RETURN CALL TO SEE IF [facility] WOULD CONSIDER PT FOR PLACEMENT TO DO IV ANTIBIOTICS. CM WAITING RETURN CALL FROM CHRISTIANO ZIMMERMAN TO DETERMINE IF PT MAY BE CONSIDERED TO GO HOME AND DO HIS OWN IV PUSH ANTIBIOTICS. CM WAITING RETURN CALL FROM [facility] TO DETERMINE IF THEY WILL EVEN CONSIDER PT FOR IV ANTIBIOTICS HE HAS MEDICAID INSURANCE. Amberly Rees, CASE MANAGEMENT Appended by Amberly Rees on 02/24/2019 16:18 CDT: RAY SPOKE TO CHRISTIANO ZIMMERMAN AND DR. HOWARD WHO INFORMED CM THAT THEY WILL NOT SEND PT HOME FOR SELF IV PUSH OF IV ANTIBIOTICS. DR. HOWARD INFORMED CM THAT PT WILL GO TO A NURSING FACILITY OR REMAIN IN HOSPITAL FOR DURATION OF ANTIBIOTICS. CM RECEIVED MESSAGE FROM JASWINDER OF [facility], , WHO INFORMED CM THAT SHE WAS LEAVING FOR THE REMAINDER OF THE DAY. CM TO CALL BACK AND DISCUSS PT'S CONDITION AND NEEDED TREATMENT 02-25-19 TO SEE IF [facility] MAY CONSIDER PT FOR [facility] IV ANTIBIOTICS ADMINISTRATION. AMBERLY REES CASE MANAGEMENT DCP- Discharge Planning Updated by [id number]: Amberly Rees on 02/23/19 9:[address] Patient Name: MEHNAZ LOVELACE Encounter No: [id number] : 1960 Primary Insurance: MEDICAID [place] Anticipated DC Date: Planned Disposition: Home with Home Health External Planned Provider: TO BE DETERMINED DCP follow-up note: CM MET WITH PT IN ROOM, DISCUSSED PLACEMENT AT [facility] FOR IV ANTIBIOTICS. PT WAS NOT INFORMED THAT MEDICAID WOULD NOT PAY FOR SHORT TERM SKILLED PLACEMENT. CM EXPLAINED MANAGER ERP CARE PLACEMENT IN [facility]. PT STATES HE DOES NOT WANT TO LOSE HIS "CHECK" AND WILL NOT GO TO A PRISON. PT DOES NOT HAVE ELECTRICITY OR RUNNING WATER AT HIS HOME AND WILL "THINK ABOUT" WHO HE MAY POSSIBLY STAY WITH FOR IV ANTIBIOTICS AND HOME HEALTH. PT WILL LET CM KNOW SOON POSSIBLE WHAT HE "CAN FIND OUT." PT REFUSED [facility] CARE PLACEMENT IN NURSING FACILITY. PT WORKING ON HIS PLAN TO STAY WITH A FRIEND AND WILL NOTIFY CM WHEN HE CAN FIND SOMEONE TO ALLOW HIM TO STAY FOR COURSE OF IV ANTIBIOTICS IN THEIR HOME. Amberly Rees CASE MANAGEMENT DCP- Discharge Planning Updated by [id number]: Sybil Walker on 02/21/19 1:[address] Patient Name: MEHNAZ LOVELACE Admission Status: ER Accout number: [id number] Admission Date: 02-15-2019 : 1960 Admission Diagnosis:GASTROINTESTINAL HEMORRHAGE, UNSPECIFIED Attending: ALEXI LINDSAY Current LOS: 6 Anticipated DC Date: Planned Disposition: Primary Insurance: MEDICAID [place] Discharge Planning Comments: CM met with patient at bedside after explaining CM role and obtaining verbal consent. CM discussed availability / needs of home health and medical equipment. [facility] is current with [facility]. [facility] doctor told him he will need 4 weeks iv antibiotics. Since he doesn't have electricity and water it is unlikely iv companies will get him meds. Patient states would like [facility] for 4 weeks. natasha signed. CM will continue to Monitor. Sealer Sander: Sybil Walker DCPIA - Discharge Planning Initial Assessment Updated by [id number]: Sybil Walker on 02/21/19 2:27 pm * Is the patient Alert and Oriented? Yes * PCP [facility] * [facility] * Preadmission Environment Home Alone * ADLs Independent * Equipment Cane * Community resources currently utilized Home Health * Please name any agencies selected above. [facility] * Additional services required to return to the preadmission environment? Yes * Can the patient safely return to the preadmission environment? Yes * Has this patient been hospitalized within the prior 30 days at any hospital? Yes Coverage Notice Reviewer: [id number] - Sybil Walker Notice Issued Date-Time: 02/21/2019 14:30 Notice Type: Patient Choice Letter Notice Delivered To: Patient Relationship to Patient: Lining Caser Name: Delivery Method: HAND - Hand Delivered Sherin Days: Prior Verbal Notification: Recipient Understood Notice: Yes Recipient Signature: Yes Med Rec Note Co-signed by Attending: Coverage Notice Comment: [facility]. [facility] Reviewer: [id number] Lis Rees Notice Issued Date-Time: 02/24/2019 12:20 Notice Type: Patient Choice Letter Notice Delivered To: Patient Relationship to Patient: Lining Caser Name: Delivery Method: HAND - Hand Delivered Sherin Days: Prior Verbal Notification: Recipient Understood Notice: Yes Recipient Signature: Yes Med Rec Note Co-signed by Attending: Coverage Notice Comment: [facility] AND NO PREFERNCE ON INFUSION COMPANY Last DP export: 02/25/19 7:30 am Patient Name: MEHNAZ LOVELACE Page [id number] at 1244 All edits/amendments must be made on the electronic document DICTATION DATE: 02/25/19 1244 CONTROL ENGINEER: APOLINAR 02/25/19 1244 RPT#: [id number] DC DATE: STATUS: ADM IN [facility] [address] [place] [address] END OF REPORT
--- NOTE | 2019-02-25 13:57 | NUR ---
I have reviewed this patient and I concur with the Shift Assessment completed by the Licensed Practical Nurse today this shift.
--- NOTE | 2019-02-25 15:10 | NUR ---
SPOKE WITH TRANSFER CENTER [facility]U STATED THEY ARE WAITING FOR A BED TO OPEN FOR PT AT [facility] SO PT CAN BE SEEN BY A FLYING I INSTRUCTOR.
[2019-02-25 16:05] VITALS: BP 118/49
[2019-02-25 20:00] VITALS: BP 137/79
--- NOTE | 2019-02-25 20:00 | NUR ---
EVENING ROUNDS COMPLETE, PT LAYING IN BED, NO SIGNS OF DISTRESS. PT DENIES ANY PAIN AT THIS TIME AAO X4. CL IN REACH, BED IN LOWEST POSITION CONT WITH POC.
[2019-02-26] VITALS: BP 151/94
--- NOTE | 2019-02-26 00:37 | NUR ---
TRANSFER CENTER CALLED, STILL NO AVAILABLE BEDS AT [facility].
[2019-02-26 04:00] VITALS: BP 145/73
--- NOTE | 2019-02-26 05:06 | NUR ---
NOTIFIED BY TRANSFER CENTER THAT THERE ARE STILL NO BEDS AVAILABLE AT [facility] AT THIS TIME.
[2019-02-26 05:41] LABS: BASOPHILS 0.6 % (0-2); EOSINOPHILS 2.7 % (0-7); HEMATOCRIT 27.9 % (42.0-54.0); IMMATURE GRANULOCYTES 0.1 % (0-5); LYMPHOCYTES 26.4 % (15-50); MCH 27.7 pg (26.0-34.0); MCHC 32.3 g/dL (31.0-37.0); MCV 85.8 fL (80.0-100.0); MEAN PLATELET VOLUME 8.6 fL (7.4-10.4); MONOCYTES 11.3 % (2-11); NEUTROPHILS 58.9 % (40-80); PLATELET COUNT 409 10x3/uL (130-400); RBC 3.25 10x6/uL (4.20-6.10); RDW 15.5 % (11.5-14.5); WBC 8.1 10x3/uL (4.8-10.8)
[2019-02-26 06:07] LABS: CALC OSMOLALITY 275 mosm/kg (275-300); CARBON DIOXIDE 31.8 mmol/L (21.0-32.0); CHLORIDE - SERUM 102 mmol/L (98-107); CREATININE - SERUM 0.5 mg/dL (0.6-1.3); GLUCOSE 89 mg/dL (74-106); POTASSIUM - SERUM 4.3 mmol/L (3.5-5.1); SODIUM 139 mmol/L (136-145); UREA NITROGEN 10 mg/dL (7-18); eGFR NON AFRICAN AMERICAN > 90 mL/min (90-120)
--- NOTE | 2019-02-26 07:16 | MORECARE ---
CASE MANAGEMENT DISCHARGE SUMMARY PATIENT: MEHNAZ LOVELACE JR UNIT: [id number] ADM DATE: 02/15/19 AGE: 58 : 60 SEX: M ROOM/BED: D.2104 AUTHOR: MAN VICENTE PHYSICIAN: REFERRING PHYSICIAN: ALEXI LINDSAY MD DATE OF SERVICE: 02/26/19 Discharge Plan Patient Name: MEHNAZ LOVELACE Facility: [facility]:[place] : 1960 Planned Disposition: Acute Care Hospital Anticipated Discharge Date: 02/26/19 Discharge Date: Expected LOS: 11 Initial Reviewer: [id number] Initial Review Date: 02/21/2019 Generated: 02/26/19 8:16 am Comments DCP- Discharge Planning Updated by [id number]: Deepthi Espitia on 02/25/19 11:[address] @ 1133 RECEIVED A CALL FROM CRISTINA ZIMMERMAN APN. PER DR CARBAJAL'S NOTE, "This case requires a higher level of care. I would recommend transfer to a neurosurgery or [facility] AT HER REQUEST I WILL WORK ON A TRANSFER. DR HOWARD HAS STATED HE WOULD DO THE DOC TO DOC AND GAVE ME HIS CELL NUMBER. @1134, I OBTAINED ADMINISTRATION AUTH FOR TRANSFER FROM [facility] THROUGH SYDNEY SAWANT RNMONOMER PURIFICATION OPERATOR. @113, PLACED A CALL TO THE TRANSFER CENTER, AND SPOKE WITH SABI. ALL DETAILS GIVEN. FACESHEET FAXED TO [phone]. WILL WAIT FOR CALL BACK. ALL IMAGING HAS BEEN BURNED TO A DISK AND ARE IN TRANSFER FOLDER. DCP- Discharge Planning Updated by [id number]: Amberly Rees on 02/25/19 7:[address] Patient Name: MEHNAZ LOVELACE Encounter No: [id number] : 1960 Primary Insurance: MEDICAID [place] Anticipated DC Date: 02-26-2019 Planned Disposition: Nursing Facility [facility] Cert External Planned Provider: [facility], LONG TERM CARE MEDICAID BED DCP follow-up note: RAY FAXED REFERRAL TO [facility] AT [phone]. RAY WAITING ON ADMISSION DETERMINATION FROM [facility] FOR SNF ANTIBIOTIC THERAPY / CARE. AMBERLY REES, CASE MANAGMENT Amberly Rees DCP- Discharge Planning Updated by [id number]: Amberly Rees on 02/24/19 3:[address] Patient Name: MEHNAZ LOVELACE Encounter No: [id number] : 1960 Primary Insurance: MEDICAID [place] Anticipated DC Date: Planned Disposition: Home DCP follow-up note: CM SPOKE TO PT IN ROOM REGARDIN DISCHARGE PLAN. PT INFORMED CM HE HAS NO FAMILY OR FRIENDS THAT WILL ASSIST HIM WITH PLACE TO STAY THAT HAS UTILITIES TO GET IV ANTIBIOTICS. PT WANTS TO GO HOME AND HAVE THEM THERE. PT HAS NO PRIMARY CARE DOCTOR. PT HAS NO CHOICE ON HOME IV INFUSION PROVIDER. CHOICE LETTER SIGNED. PT STILL DOES NOT WANT TO GO TO A DETENTION FOR DISTRICT RESOURCE OFFICER CARE; PT STATES CM CAN CHECK WITH [facility] TO SEE IF THEY WILL TAKE HIM IF HE HAS NO OTHER OPTIONS. CM CALLED AND SPOKE TO BEBA AT [facility], PT'S PREFERRED PROVIDER, WHO INFORMED CM THAT THEY WILL NOT PROVIDE SERVICES FOR IV HOME INFUSION ENVIRONMENT DESCRIBED IS NOT APPROPRIATE. CM CALLED [facility], SPOKE TO DIONE MCCRACKEN WHO INFORMED CM THAT THEY MAY BE ABLE TO TEACH PT TO DO HIS OWN IV PUSH AT HOME BUT PT WILL STILL NEED CLINIC OR OUTPATIENT FOLLOW UP FOR ANY DRESSING CHANGES AND IF THERE ARE ANY NEEDED LABS. CM NOTIFIED CHRISTIANO ZIMMERMAN TO DETERMINE IF THIS IS AN OPTION. CM CALLED JASWINDER AT [facility], , LEFT MESSAGE ASKING FOR RETURN CALL TO SEE IF [facility] WOULD CONSIDER PT FOR PLACEMENT TO DO IV ANTIBIOTICS. CM WAITING RETURN CALL FROM CHRISTIANO ZIMMERMAN TO DETERMINE IF PT MAY BE CONSIDERED TO GO HOME AND DO HIS OWN IV PUSH ANTIBIOTICS. CM WAITING RETURN CALL FROM [facility] TO DETERMINE IF THEY WILL EVEN CONSIDER PT FOR IV ANTIBIOTICS HE HAS MEDICAID INSURANCE. Amberly Rees, CASE MANAGEMENT Appended by Amberly Rees on 02/24/2019 16:18 CDT: CM SPOKE TO CHRISTIANO ZIMMERMAN AND DR. HOWRAD WHO INFORMED CM THAT THEY WILL NOT SEND PT HOME FOR SELF IV PUSH OF IV ANTIBIOTICS. DR. HOWARD INFORMED CM THAT PT WILL GO TO A NURSING FACILITY OR REMAIN IN HOSPITAL FOR DURATION OF ANTIBIOTICS. CM RECEIVED MESSAGE FROM JASWINDER OF [facility], , WHO INFORMED CM THAT SHE WAS LEAVING FOR THE REMAINDER OF THE DAY. CM TO CALL BACK AND DISCUSS PT'S CONDITION AND NEEDED TREATMENT 02-25-19 TO SEE IF [facility] MAY CONSIDER PT FOR DISTRICT RESOURCE OFFICER IV ANTIBIOTICS ADMINISTRATION. AMBERLY REES CASE MANAGEMENT DCP- Discharge Planning Updated by [id number]: Amberly Rees on 02/23/19 9:[address] Patient Name: MEHNAZ LOVELACE Encounter No: [id number] : 1960 Primary Insurance: MEDICAID [place] Anticipated DC Date: Planned Disposition: Home with Home Health External Planned Provider: TO BE DETERMINED DCP follow-up note: CM MET WITH PT IN ROOM, DISCUSSED PLACEMENT AT [facility] FOR IV ANTIBIOTICS. PT WAS NOT INFORMED THAT MEDICAID WOULD NOT PAY FOR SHORT TERM SKILLED PLACEMENT. CM EXPLAINED SNF CARE PLACEMENT IN HALFWAY FACILITY. PT STATES HE DOES NOT WANT TO LOSE HIS "CHECK" AND WILL NOT GO TO A DETENTION. PT DOES NOT HAVE ELECTRICITY OR RUNNING WATER AT HIS HOME AND WILL "THINK ABOUT" WHO HE MAY POSSIBLY STAY WITH FOR IV ANTIBIOTICS AND HOME HEALTH. PT WILL LET CM KNOW SOON POSSIBLE WHAT HE "CAN FIND OUT." PT REFUSED SNF CARE PLACEMENT IN NURSING FACILITY. PT WORKING ON HIS PLAN TO STAY WITH A FRIEND AND WILL NOTIFY CM WHEN HE CAN FIND SOMEONE TO ALLOW HIM TO STAY FOR COURSE OF IV ANTIBIOTICS IN THEIR HOME. Amberly Rees CASE MANAGEMENT DCP- Discharge Planning Updated by [id number]: Sybil Walker on 02/21/19 1:[address] Patient Name: MEHNAZ LOVELACE Admission Status: ER Accout number: [id number] Admission Date: 02-15-2019 : 1960 Admission Diagnosis:GASTROINTESTINAL HEMORRHAGE, UNSPECIFIED Attending: ALEXI LINDSAY Current LOS: 6 Anticipated DC Date: Planned Disposition: Primary Insurance: MEDICAID [place] Discharge Planning Comments: CM met with patient at bedside after explaining CM role and obtaining verbal consent. CM discussed availability / needs of home health and medical equipment. [facility] is current with [facility]. [facility] doctor told him he will need 4 weeks iv antibiotics. Since he doesn't have electricity and water it is unlikely iv companies will get him meds. Patient states would like [facility] for 4 weeks. natasha signed. CM will continue to Monitor. Wool Puller: Sybil Walker DCPIA - Discharge Planning Initial Assessment Updated by [id number]: Sybil Walker on 02/21/19 2:27 pm * Is the patient Alert and Oriented? Yes * PCP [facility] * [facility] * Preadmission Environment Home Alone * ADLs Independent * Equipment Cane * Community resources currently utilized Home Health * Please name any agencies selected above. [facility] * Additional services required to return to the preadmission environment? Yes * Can the patient safely return to the preadmission environment? Yes * Has this patient been hospitalized within the prior 30 days at any hospital? Yes Coverage Notice Reviewer: [id number] - Sybil Walker Notice Issued Date-Time: 02/21/2019 14:30 Notice Type: Patient Choice Letter Notice Delivered To: Patient Relationship to Patient: Marine Fireman Name: Delivery Method: HAND - Hand Delivered Sherin Days: Prior Verbal Notification: Recipient Understood Notice: Yes Recipient Signature: Yes Med Rec Note Co-signed by Attending: Coverage Notice Comment: pietro campbell. [facility] Reviewer: [id number] Lis Rees Notice Issued Date-Time: 02/24/2019 12:20 Notice Type: Patient Choice Letter Notice Delivered To: Patient Relationship to Patient: Marine Fireman Name: Delivery Method: HAND - Hand Delivered Sherin Days: Prior Verbal Notification: Recipient Understood Notice: Yes Recipient Signature: Yes Med Rec Note Co-signed by Attending: Coverage Notice Comment: [facility] AND NO PREFERNCE ON INFUSION COMPANY Last DP export: 02/25/19 11:44 am Patient Name: MEHNAZ LOVELACE Page 48325 at 0716 All edits/amendments must be made on the electronic document DICTATION DATE: 02/26/19715 PADDED PRODUCTS INSPECTOR TRIMMER: APOLINAR 02/26/19715 RPT#: [id number] DC DATE: STATUS: ADM IN [facility] [address] [place] [address] END OF REPORT
--- NOTE | 2019-02-26 07:23 | MORECARE ---
CASE MANAGEMENT DISCHARGE SUMMARY PATIENT: MEHNAZ LOVELACE JR UNIT: [id number] ADM DATE: 02/15/19 AGE: 58 : 60 SEX: M ROOM/BED: D.8758 AUTHOR: MAN VICENTE PHYSICIAN: REFERRING PHYSICIAN: ALEXI LINDSAY MD DATE OF SERVICE: 02/26/19 Discharge Plan Patient Name: MEHNAZ LOVELACE Facility: [facility]:[place] : 1960 Planned Disposition: Acute Care Hospital Anticipated Discharge Date: 02/26/19 Discharge Date: Expected LOS: 11 Initial Reviewer: [id number] Initial Review Date: 02/21/2019 Generated: 02/26/19 8:22 am Comments DCP- Discharge Planning Updated by [id number]: Amberly Wiseman on 02/26/19 6:[address] Patient Name: MEHNAZ LOVELACE Encounter No: [id number] : 1960 Primary Insurance: MEDICAID [place] Anticipated DC Date: 02-26-2019 Planned Disposition: Acute Care Hospital External Planned Provider: [facility] DCP follow-up note: CM SPOKE TO JASWINDER [facility], THEY WILL NOT ACCEPT PT. CM SPOKE TO RN RAY VILLA WHO ADVISED THAT PHYSICIAN IS NOW IN PROCESS OF TRANSFER. CM SPOKE TO PT IN ROOM WHO IS WILLING FOR TRANSFER FOR HIGHER LEVEL OF CARE. CM SPOKE TO RN COMMERCIAL ENERGY RATER WHO ADVISED THAT [facility] HAS ACCEPTED AND WE ARE WAITING BED AVAILABILITY. CM TO FOLLOW AND ASSIST NEEDED. WAITING BED AVAILAILITY AT [facility] FOR HOSPITAL TRANSFER. Amberly Wiseman, ALYSHA HARDIN DCP- Discharge Planning Updated by [id number]: Deepthi Espitia on 02/25/19 11:[address] @ 1133 RECEIVED A CALL FROM CRISTINA ZIMMERMAN APN. PER DR CARBAJAL'S NOTE, "This case requires a higher level of care. I would recommend transfer to a neurosurgery or ortho spine service at a [facility]." AT HER REQUEST I WILL WORK ON A TRANSFER. DR HOWARD HAS STATED HE WOULD DO THE DOC TO DOC AND GAVE ME HIS CELL NUMBER. @1132, I OBTAINED ADMINISTRATION AUTH FOR TRANSFER FROM [facility] TH[facility]OUGH SYDNEY SAWANT RNJOB ANALYST. @1138, PLACED A CALL TO THE TRANSFER CENTER, AND SPOKE WITH SABI. ALL DETAILS GIVEN. FACESHEET FAXED TO [phone]. WILL WAIT FOR CALL BACK. ALL IMAGING HAS BEEN BURNED TO A DISK AND ARE IN TRANSFER FOLDER. DCP- Discharge Planning Updated by [id number]: Amberly Wiseman on 02/25/19 7:[address] Patient Name: MEHNAZ LOVELACE Encounter No: [id number] : 1960 Primary Insurance: MEDICAID [place] Anticipated DC Date: 02-26-2019 Planned Disposition: Nursing Facility [facility] Cert External Planned Provider: [facility], LONG TERM CARE MEDICAID BED DCP follow-up note: CM FAXED REFERRAL TO [facility] AT [phone]. CM WAITING ON ADMISSION DETERMINATION FROM [facility] FOR COMPTOMETER OPERATOR ANTIBIOTIC THERAPY / CARE. AMBERLY WISEMAN, CASE MANAGMENT Amberly Wiseman DCP- Discharge Planning Updated by [id number]: Amberly Wiseman on 02/24/19 3:[address] Patient Name: MEHNAZ LOVELACE Encounter No: [id number] : 1960 Primary Insurance: MEDICAID [place] Anticipated DC Date: Planned Disposition: Home DCP follow-up note: CM SPOKE TO PT IN ROOM REGARDIN DISCHARGE PLAN. PT INFORMED CM HE HAS NO FAMILY OR FRIENDS THAT WILL ASSIST HIM WITH PLACE TO STAY THAT HAS UTILITIES TO GET IV ANTIBIOTICS. PT WANTS TO GO HOME AND HAVE THEM THERE. PT HAS NO PRIMARY CARE DOCTOR. PT HAS NO CHOICE ON HOME IV INFUSION PROVIDER. CHOICE LETTER SIGNED. PT STILL DOES NOT WANT TO GO TO A LONG-TERM FOR RESIDENTIAL CARE; PT STATES CM CAN CHECK WITH [facility] TO SEE IF THEY WILL TAKE HIM IF HE HAS NO OTHER OPTIONS. CM CALLED AND SPOKE TO BEBA AT [facility], PT'S PREFERRED PROVIDER, WHO INFORMED CM THAT THEY WILL NOT PROVIDE SERVICES FOR IV HOME INFUSION ENVIRONMENT DESCRIBED IS NOT APPROPRIATE. CM CALLED [facility], SPOKE TO DIONE MCCRACKEN WHO INFORMED CM THAT THEY MAY BE ABLE TO TEACH PT TO DO HIS OWN IV PUSH AT HOME BUT PT WILL STILL NEED CLINIC OR OUTPATIENT FOLLOW UP FOR ANY DRESSING CHANGES AND IF THERE ARE ANY NEEDED LABS. CM NOTIFIED CHRISTIANO ZIMMERMAN TO DETERMINE IF THIS IS AN OPTION. CM CALLED JASWINDER AT [facility], , LEFT MESSAGE ASKING FOR RETURN CALL TO SEE IF [facility] WOULD CONSIDER PT FOR PLACEMENT TO DO IV ANTIBIOTICS. CM WAITING RETURN CALL FROM [facility]RIST[facility] ZIMMERMAN TO DETERMINE IF PT MAY BE CONSIDERED TO GO HOME AND DO HIS OWN IV PUSH ANTIBIOTICS. CM WAITING RETURN CALL FROM [facility] TO DETERMINE IF THEY WILL EVEN CONSIDER PT FOR IV ANTIBIOTICS HE HAS MEDICAID INSURANCE. Amberly Wiseman, CASE MANAGEMENT Appended by Amberly Wiseman on 02/24/2019 16:18 CDT: CM SPOKE TO CHRISTIANO ZIMMERMAN AND DR. HOWARD WHO INFORMED CM THAT THEY WILL NOT SEND PT HOME FOR SELF IV PUSH OF IV ANTIBIOTICS. DR. HOWARD INFORMED CM THAT PT WILL GO TO A NURSING FACILITY OR REMAIN IN HOSPITAL FOR DURATION OF ANTIBIOTICS. CM RECEIVED MESSAGE FROM JASWINDER OF [facility], , WHO INFORMED CM THAT SHE WAS LEAVING FOR THE REMAINDER OF THE DAY. CM TO CALL BACK AND DISCUSS PT'S CONDITION AND NEEDED TREATMENT 02-25-19 TO SEE IF [facility] MAY CONSIDER PT FOR COMPTOMETER OPERATOR IV ANTIBIOTICS ADMINISTRATION. AMBERLY WISEMAN, CASE MANAGEMENT DCP- Discharge Planning Updated by [id number]: Amberly Wiseman on 02/23/19 9:[address] Patient Name: MEHNAZ LOVELACE Encounter No: [id number] : 1960 Primary Insurance: MEDICAID [facility] DC Date: Planned Disposition: Home with Home Health External Planned Provider: TO BE DETERMINED DCP follow-up note: CM MET WITH PT IN ROOM, DISCUSSED PLACEMENT AT [facility] FOR IV ANTIBIOTICS. PT WAS NOT INFORMED THAT MEDICAID WOULD NOT PAY FOR SHORT TERM SKILLED PLACEMENT. CM EXPLAINED COMPTOMETER OPERATOR CARE PLACEMENT IN LONG-TERM FACILITY. PT STATES HE DOES NOT WANT TO LOSE HIS "CHECK" AND WILL NOT GO TO A LONG-TERM. PT DOES NOT HAVE ELECTRICITY OR RUNNING WATER AT HIS HOME AND WILL "THINK ABOUT" WHO HE MAY POSSIBLY STAY WITH FOR IV ANTIBIOTICS AND HOME HEALTH. PT WILL LET CM KNOW SOON POSSIBLE WHAT HE "CAN FIND OUT." PT REFUSED RESIDENTIAL CARE PLACEMENT IN NURSING FACILITY. PT WORKING ON HIS PLAN TO STAY WITH A FRIEND AND WILL NOTIFY CM WHEN HE CAN FIND SOMEONE TO ALLOW HIM TO STAY FOR COURSE OF IV ANTIBIOTICS IN THEIR HOME. Amberly Wiseman, CASE MANAGEMENT DCP- Discharge Planning Updated by [id number]: Sybil Walker on 02/21/19 1:[address] Patient Name: GENE E RADU Admission Status: ER Accout number: [id number] Admission Date: 02-15-2019 : 1960 Admission Diagnosis:GASTROINTESTINAL HEMORRHAGE, UNSPECIFIED Attending: ALEXI LINDSAY Current LOS: 6 Anticipated DC Date: Planned Disposition: Primary Insurance: MEDICAID [place] Discharge Planning Comments: CM met with patient at bedside after explaining CM role and obtaining verbal consent. CM discussed availability / needs of home health and medical equipment. [facility] is current with [facility]. [facility] doctor told him he will need 4 weeks iv antibiotics. Since he doesn't have electricity and water it is unlikely iv companies will get him meds. Patient states [facility]. natasha signed. CM will continue to Monitor. Washer Machine: Sybil Walker DCPIA - Discharge Planning Initial Assessment Updated by [id number]: Sybil Walker on 02/21/19 2:27 pm * Is the patient Alert and Oriented? Yes * PCP [facility] * [facility] * Preadmission Environment Home Alone * ADLs Independent * Equipment Cane * Community resources currently utilized Home Health * Please name any agencies selected above. [facility] * Additional services required to return to the preadmission environment? Yes * Can the patient safely return to the preadmission environment? Yes * Has this patient been hospitalized within the prior 30 days at any hospital? Yes Coverage Notice Reviewer: [id number] - Sybil Walker Notice Issued Date-Time: 02/21/2019 14:30 Notice Type: Patient Choice Letter Notice Delivered To: Patient Relationship to Patient: Piano Refinisher Name: Delivery Method: HAND - Hand Delivered Sherin Days: Prior Verbal Notification: Recipient Understood Notice: Yes Recipient Signature: Yes Med Rec Note Co-signed by Attending: Coverage Notice Comment: pietro alejandro [facility]. [facility] Reviewer: [id number] Lis Wiseman Notice Issued Date-Time: 02/24/2019 12:20 Notice Type: Patient Choice Letter Notice Delivered To: Patient Relationship to Patient: Piano Refinisher Name: Delivery Method: HAND - Hand Delivered Sherin Days: Prior Verbal Notification: Recipient Understood Notice: Yes Recipient Signature: Yes Med Rec Note Co-signed by Attending: Coverage Notice Comment: [facility] AND NO PREFERNCE ON INFUSION COMPANY Last DP export: 02/26/19 6:16 am Patient Name: MEHNAZ LOVELACE Page 46042 at 0723 All edits/amendments must be made on the electronic document DICTATION DATE: 02/26/19721 PRINT ROOM WORKER: APOLINAR 02/26/19721 RPT#: [id number] DC DATE: STATUS: ADM IN [facility] [address] [place] [address] END OF REPORT
--- NOTE | 2019-02-26 07:39 | NUR ---
PATIENT IS AWAKE AND ALERT. HE IS AWARE THAT HE IS BEING DISCHARGED. WAITING ON A BED AT [facility].
[2019-02-26 08:37] VITALS: BP 143/82
[2019-02-26 12:25] VITALS: BP 142/74
[2019-02-26 15:28] VITALS: BP 128/57
--- NOTE | 2019-02-26 19:30 | NUR ---
RECEIVED REPORT, WILL ASSUME CARE OF PT, COMPLAINS OF PAIN, WILL GIVE [place] ORDER, BED IS LOW, SRX2, CALL LIGHT IN REACH, WILL CONTINUE PLAN OF CARE
[2019-02-26 20:00] VITALS: BP 134/68
[2019-02-27] VITALS: BP 165/80
[2019-02-27 04:00] VITALS: BP 146/80
[2019-02-27 05:08] LABS: BASOPHILS 0.7 % (0-2); EOSINOPHILS 3.2 % (0-7); HEMATOCRIT 27.7 % (42.0-54.0); HEMOGLOBIN 8.8 g/dL (13.5-17.5); IMMATURE GRANULOCYTES 0.1 % (0-5); LYMPHOCYTES 24.4 % (15-50); MCH 27.7 pg (26.0-34.0); MCHC 31.8 g/dL (31.0-37.0); MCV 87.1 fL (80.0-100.0); MONOCYTES 12.2 % (2-11); NEUTROPHILS 59.4 % (40-80); RBC 3.18 10x6/uL (4.20-6.10); RDW 15.6 % (11.5-14.5); WBC 8.7 10x3/uL (4.8-10.8)
[2019-02-27 05:10] LABS: PLATELET COUNT 578 10x3/uL (130-400)
[2019-02-27 05:35] LABS: ALBUMIN 2.1 g/dL (3.4-5.0); ALKALINE PHOSPHATASE 90 U/L (46-116); ALT (SGPT) 13 U/L (10-68); BILIRUBIN - TOTAL 0.18 mg/dL (0.2-1.3); CALC OSMOLALITY 278 mosm/kg (275-300); CALCIUM 8.3 mg/dL (8.5-10.1); CARBON DIOXIDE 30.7 mmol/L (21.0-32.0); CHLORIDE - SERUM 103 mmol/L (98-107); CREATININE - SERUM 0.6 mg/dL (0.6-1.3); GLUCOSE 97 mg/dL (74-106); POTASSIUM - SERUM 4.3 mmol/L (3.5-5.1); PROTEIN - SERUM 6.5 g/dL (6.4-8.2); SODIUM 141 mmol/L (136-145); UREA NITROGEN 8 mg/dL (7-18); eGFR NON AFRICAN AMERICAN > 90 mL/min (90-120)
[2019-02-27 09:35] VITALS: BP 113/65
--- NOTE | 2019-02-27 09:59 | NUR ---
PATIENT IS RESTING ON HSI BACK IN BED AT THIS TIME. HE HAS CHRONIC PAIN IN HIS HIPS THAT WE ARE TREATING ORDERED. PATIENT IS STILL ON CONTACT AND IS AWAITING A BED AT [facility]. HE DENIES ANY NEEDS AT THIS TIME.
--- NOTE | 2019-02-27 12:48 | NUR ---
[facility] CALLED WONDERING IF THIS PATIENT NEEDS A BED. WILL TALK TO CAMPAIGN ANALYST AND CHARGE NURSE ABOUT THIS.
--- NOTE | 2019-02-27 12:48 | NUR ---
TRANSFER CENTER CALLED AND SAID THEY ARE STILL WAITING ON A BED AT [facility].
[2019-02-27 13:37] VITALS: BP 159/81
--- NOTE | 2019-02-27 13:47 | NUR ---
SPOKE TO [place] SET UP OPERATOR AND CRISTINA ALVARADO REGARDING [facility] POSSIBLY TAKING THE PATIENT. WAITING TO SEE IF THERE IS A BED.
--- NOTE | 2019-02-27 14:16 | NUR ---
PATIENT HAS A BED AT [facility] AND WILL BE TRANSFERED. RM#[id number]. CALLING REPORT NOW.
[2019-02-27] MEDS ORDERED: CARAFATE1 G PO (14:37)
--- NOTE | 2019-02-27 14:47 | NUR ---
CALLED REPORT TO [facility], PATIENT WILL BE GOING WITH LAINA PISANO, AND GOING TO ROOM 508. PATIENT IS AWARE. PAPERS SIGNED, AND DISCHARGE NURSE IS WORKING ON THE DISCHARGE NOW.
--- NOTE | 2019-02-27 15:10 | NUR ---
PAPERS SIGNED, DISCHARGE TEACHING DONE. CALLED [facility] FOR TRANSPORT. LEAVING IV IN PLACE. PATIENT IS REMOVING ALL BELONGINGS FROM THE ROOM.
--- NOTE | 2019-02-27 18:09 | MORECARE ---
CASE MANAGEMENT DISCHARGE SUMMARY PATIENT: MENHAZ LOVELACE JR UNIT: [id number] ADM DATE: 02/15/19 AGE: 58 : 60 SEX: M ROOM/BED: D.4943 AUTHOR: MAN VICENTE PHYSICIAN: REFERRING PHYSICIAN: ALEXI LINDSAY MD DATE OF SERVICE: 02/27/19 Discharge Plan Patient Name: MEHNAZ LOVELACE Facility: [facility]:[place] : 1960 Planned Disposition: Acute Care Hospital Anticipated Discharge Date: 02/26/19 Discharge Date: Expected LOS: 11 Initial Reviewer: [id number] Initial Review Date: 02/21/2019 Generated: 02/27/19 7:08 pm Comments DCP- Discharge Planning Updated by [id number]: Amberly Wiseman on 02/26/19 6:[address] Patient Name: MEHNAZ LOVELACE Encounter No: [id number] : 1960 Primary Insurance: MEDICAID [place] Anticipated DC Date: 02-26-2019 Planned Disposition: Acute Care Hospital External Planned Provider: [facility] [place] DCP follow-up note: CM SPOKE TO J[facility]WINDER [facility], THEY WILL NOT ACCEPT PT. CM SPOKE TO RN RAY VILLA WHO ADVISED THAT PHYSICIAN IS NOW IN PROCESS OF TRANSFER. CM SPOKE TO PT IN ROOM WHO IS WILLING FOR TRANSFER FOR HIGHER LEVEL OF CARE. CM SPOKE TO RN CULTURE MEDIA LABORATORY ASSISTANT WHO ADVISED THAT [facility] HAS ACCEPTED AND WE ARE WAITING BED AVAILABILITY. CM TO FOLLOW AND ASSIST NEEDED. WAITING BED AVAILAILITY AT [facility] FOR HOSPITAL TRANSFER. Amberly Wiseman, ALYSHA HARDIN DCP- Discharge Planning Updated by [id number]: Deepthi Espitia on 02/25/19 11:[address] @ 1133 RECEIVED A CALL FROM CRISTINA ZIMMERMAN APN. PER DR CARBAJAL'S NOTE, "This case requires a higher level of care. I would recommend transfer to a neurosurgery or ortho spine service at a [facility]." AT HER REQUEST I WILL WORK ON A TRANSFER. DR HOWARD HAS STATED HE WOULD DO THE DOC TO DOC AND GAVE ME HIS CELL NUMBER. @1134, I OBTAINED ADMINISTRATION AUTH FOR TRANSFER FROM [facility] THROUGH [facility] [employer]. @1138, PLACED A CALL TO THE TRANSFER CENTER, AND SPOKE WITH SABI. ALL DETAILS GIVEN. FACESHEET FAXED TO [phone]. WILL WAIT FOR CALL BACK. ALL IMAGING HAS BEEN BURNED TO A DISK AND ARE IN TRANSFER FOLDER. DCP- Discharge Planning Updated by [email or web address]: Amberly Wiseman on 02/25/19 7:[address] Patient Name: MEHNAZ LOVELACE Encounter No: [id number] : 1960 Primary Insurance: MEDICAID [place] Anticipated DC Date: 02-26-2019 Planned Disposition: Nursing Facility [facility] Cert External Planned Provider: [facility], [facility] TERM CARE MEDICAID BED DCP follow-up note: CM FAXED REFERRAL TO [facility] AT [phone]. CM WAITING ON ADMISSION DETERMINATION FROM [facility] FOR RATE SUPERVISOR ANTIBIOTIC THERAPY / CARE. AMBERLY WISEMAN, CASE MANAGMENT Amberly Wiseman DCP- Discharge Planning Updated by [id number]: Amberly Wiseman on 02/24/19 3:[address] Patient Name: MEHNAZ LOVELACE Encounter No: [id number] : 1960 Primary Insurance: MEDICAID [place] Anticipated DC Date: Planned Disposition: Home DCP follow-up note: CM SPOKE TO PT IN ROOM REGARDIN DISCHARGE PLAN. PT INFORMED CM HE HAS NO FAMILY OR FRIENDS THAT WILL ASSIST HIM WITH PLACE TO STAY THAT HAS UTILITIES TO GET IV ANTIBIOTICS. PT WANTS TO GO HOME AND HAVE THEM THERE. PT HAS NO PRIMARY CARE DOCTOR. PT HAS NO CHOICE ON HOME IV INFUSION PROVIDER. CHOICE LETTER SIGNED. PT STILL DOES NOT WANT TO GO TO A FDC FOR [facility] CARE; PT STATES CM CAN CHECK WITH [facility] TO SEE IF THEY WILL TAKE HIM IF HE HAS NO OTHER OPTIONS. CM CALLED AND SPOKE TO BEBA AT [facility], PT'S PREFERRED PROVIDER, WHO INFORMED CM THAT THEY WILL NOT PROVIDE SERVICES FOR IV HOME INFUSION ENVIRONMENT DESCRIBED IS NOT APPROPRIATE. CM CALLED [facility], SPOKE TO DIONE MCCRACKEN WHO INFORMED CM THAT THEY MAY BE ABLE TO TEACH PT TO DO HIS OWN IV PUSH AT HOME BUT PT WILL STILL NEED CLINIC OR OUTPATIENT FOLLOW UP FOR ANY DRESSING CHANGES AND IF THERE ARE ANY NEEDED LABS. CM NOTIFIED CHRISTIANO ZIMMERMAN TO DETERMINE IF THIS IS AN OPTION. CM CALLED JASWINDER AT [facility], , LEFT MESSAGE ASKING FOR RETURN CALL TO SEE IF [facility] WOULD CONSIDER PT FOR PLACEMENT TO DO IV ANTIBIOTICS. CM WAITING RETURN CALL FROM CHRISTIANO ZIMMERMAN TO DETERMINE IF PT MAY BE CONSIDERED TO GO HOME AND DO HIS OWN IV PUSH ANTIBIOTICS. CM WAITING RETURN CALL FROM [facility] TO DETERMINE IF THEY WILL EVEN CONSIDER PT FOR IV ANTIBIOTICS HE HAS MEDICAID INSURANCE. Amberly Wiseman, CASE MANAGEMENT Appended by Amberly Wiseman on 02/24/2019 16:18 CDT: CM SPOKE TO CHRISTIANO ZIMMERMAN AND DR. HOWARD WHO INFORMED CM THAT THEY WILL NOT SEND PT HOME FOR SELF IV PUSH OF IV ANTIBIOTICS. DR. HOWARD INFORMED CM THAT PT WILL GO TO A NURSING FACILITY OR REMAIN IN HOSPITAL FOR DURATION OF ANTIBIOTICS. CM RECEIVED MESSAGE FROM JASWINDER OF [facility], , WHO INFORMED CM THAT SHE WAS LEAVING FOR THE REMAINDER OF THE DAY. CM TO CALL BACK AND DISCUSS PT'S CONDITION AND NEEDED TREATMENT 02-25-19 TO SEE IF [facility] MAY CONSIDER PT FOR RATE SUPERVISOR IV ANTIBIOTICS ADMINISTRATION. AMBERLY WISEMAN, CASE MANAGEMENT DCP- Discharge Planning Updated by [id number]: Amberly Wiseman on 02/23/19 9:[address] Patient Name: MEHNAZ LOVELACE Encounter No: [id number] : 1960 Primary Insurance: MEDICAID [facility] DC Date: Planned Disposition: Home with Home Health External Planned Provider: TO BE DETERMINED DCP follow-up note: CM MET WITH PT IN ROOM, DISCUSSED PLACEMENT AT [facility] FOR IV ANTIBIOTICS. PT WAS NOT INFORMED THAT MEDICAID WOULD NOT PAY FOR SHORT TERM SKILLED PLACEMENT. CM EXPLAINED RATE SUPERVISOR CARE PLACEMENT IN [facility] FACILITY. PT STATES HE DOES NOT WANT TO LOSE HIS "CHECK" AND WILL NOT GO TO A FDC. PT DOES NOT HAVE ELECTRICITY OR RUNNING WATER AT HIS HOME AND WILL "THINK ABOUT" WHO HE MAY POSSIBLY STAY WITH FOR IV ANTIBIOTICS AND HOME HEALTH. PT WILL LET CM KNOW SOON POSSIBLE WHAT HE "CAN FIND OUT." PT REFUSED MCFP CARE PLACEMENT IN NURSING FACILITY. PT WORKING ON HIS PLAN TO STAY WITH A FRIEND AND WILL NOTIFY CM WHEN HE CAN FIND SOMEONE TO ALLOW HIM TO STAY FOR COURSE OF IV ANTIBIOTICS IN THEIR HOME. Amberly Wiseman, CASE MANAGEMENT DCP- Discharge Planning Updated by [id number]: Sybil Walker on 02/21/19 1:[address] Patient Name: GENE E RADU Admission Status: ER Accout number: [id number] Admission Date: 02-15-2019 : 1960 Admission Diagnosis:GASTROINTESTINAL HEMORRHAGE, UNSPECIFIED Attending: ALEXI LINDSAY Current LOS: 6 Anticipated DC Date: Planned Disposition: Primary Insurance: MEDICAID [place] Discharge Planning Comments: CM met with patient at bedside after explaining CM role and obtaining verbal consent. CM discussed availability / needs of home health and medical equipment. [facility] is current with Pietro ALEJANDRO. [facility] doctor told him he will need 4 weeks iv antibiotics. Since he doesn't have electricity and water it is unlikely iv companies will get him meds. Patient states would like [place] [facility] for 4 weeks. natasha signed. CM will continue to Monitor. Putter In: Sybil Walker DCPIA - Discharge Planning Initial Assessment Updated by [id number]: Sybil Walker on 02/21/19 2:27 pm * Is the patient Alert and Oriented? Yes * PCP [facility] * [facility] * Preadmission Environment Home Alone * ADLs Independent * Equipment Cane * Community resources currently utilized Home Health * Please name any agencies selected above. [facility] * Additional services required to return to the preadmission environment? Yes * Can the patient safely return to the preadmission environment? Yes * Has this patient been hospitalized within the prior 30 days at any hospital? Yes Coverage Notice Reviewer: [id number] - Sybil Walker Notice Issued Date-Time: 02/21/2019 14:30 Notice Type: Patient Choice Letter Notice Delivered To: Patient Relationship to Patient: Window Unit Air Conditioning Mechanic Name: Delivery Method: HAND - Hand Delivered Sherin Days: Prior Verbal Notification: Recipient Understood Notice: Yes Recipient Signature: Yes Med Rec Note Co-signed by Attending: Coverage Notice Comment: pietro alejandro resume. [facility] [place] [facility] Reviewer: [id number] Lis Wiseman Notice Issued Date-Time: 02/24/2019 12:20 Notice Type: Patient Choice Letter Notice Delivered To: Patient Relationship to Patient: Window Unit Air Conditioning Mechanic Name: Delivery Method: HAND - Hand Delivered Sherin Days: Prior Verbal Notification: Recipient Understood Notice: Yes Recipient Signature: Yes Med Rec Note Co-signed by Attending: Coverage Notice Comment: [facility] AND NO PREFERNCE ON INFUSION COMPANY Last DP export: 02/26/19 6:23 am Patient Name: MEHNAZ LOVELACE Page [id number] at 1809 All edits/amendments must be made on the electronic document DICTATION DATE: 02/27/191807 MANAGER COMPETITIVE INTELLIGENCE: APOLINAR 02/27/191807 RPT#: [id number] DC DATE: STATUS: ADM IN [facility] [address] [place] [address] END OF REPORT
--- NOTE | 2019-02-27 18:16 | MORECARE ---
CASE MANAGEMENT DISCHARGE SUMMARY PATIENT: MEHNAZ LOVELACE JR UNIT: [id number] ADM DATE: 02/15/19 AGE: 58 : 60 SEX: M ROOM/BED: D.1170 AUTHOR: JULESDOC PHYSICIAN: REFERRING PHYSICIAN: ALEXI LINDSAY MD DATE OF SERVICE: 02/27/19 Discharge Plan Patient Name: MEHNAZ LOVELACE Facility: [facility]:[place] : 1960 Planned Disposition: Acute Care Hospital Anticipated Discharge Date: 02/26/19 Discharge Date: Expected LOS: 11 Initial Reviewer: [id number] Initial Review Date: 02/21/2019 Generated: 02/27/19 7:15 pm Comments DCP- Discharge Planning Updated by [id number]: Christiana Reynoso on 02/27/19 5:[address] PATIENT HAS BEEN ACCEPTED BY DR BILLS AT [facility] IN [place], [place]. HE HAS BEEN ASSIGNED TO [facility]. TRANSFERED DUE TO SPECIALTY SERVICE NOT AVAILABLE AT [facility]/ ID AWAITING [facility] FOR AMBULANCE TRANSPORT. DCP- Discharge Planning Updated by [id number]: Amberly Rees on 02/26/19 6:[address] Patient Name: MEHNAZ LOVELACE Encounter No: [id number] : 1960 Primary Insurance: MEDICAID [place] Anticipated DC Date: 02-26-2019 Planned Disposition: Acute Care Hospital External Planned Provider: [facility] DCP follow-up note: CM SPOKE TO [facility], THEY WILL NOT ACCEPT PT. CM SPOKE TO RN RAY VILLA WHO ADVISED THAT PHYSICIAN IS NOW IN PROCESS OF TRANSFER. CM SPOKE TO PT IN ROOM WHO IS WILLING FOR TRANSFER FOR HIGHER LEVEL OF CARE. CM SPOKE TO RN TOOL AND DIE TECHNICIAN WHO ADVISED THAT [facility] HAS ACCEPTED AND WE ARE WAITING BED AVAILABILITY. CM TO FOLLOW AND ASSIST NEEDED. WAITING BED AVAILAILITY AT [facility] FOR HOSPITAL TRANSFER. Amberly Rees, CASE MANAGEMENT DCP- Discharge Planning Updated by [id number]: Deepthi Espitia on 02/25/19 11:[address] @ 1133 RECEIVED A CALL FROM CRISTINA ZIMMERMAN APN. PER DR CARBAJAL'S NOTE, "This case requires a higher level of care. I would recommend transfer to a neurosurgery or ortho spine service at a [facility]." AT HER REQUEST I WILL WORK ON A TRANSFER. DR HOWARD HAS STATED HE WOULD DO THE DOC TO DOC AND GAVE ME HIS CELL NUMBER. @1133, I OBTAINED ADMINISTRATION AUTH FOR TRANSFER FROM [facility]OUGH SYDNEY [facility]WANT [facility]PER[facility]. @6915, PLACED A CALL TO THE TRANSFER CENTER, AND SPOKE WITH SABI. ALL DETAILS GIVEN. FACESHEET FAXED TO [phone]. WILL WAIT FOR CALL BACK. ALL IMAGING HAS BEEN BURNED TO A DISK AND ARE IN TRANSFER FOLDER. DCP- Discharge Planning Updated by [id number]: Amberly Rees on 02/25/19 7:[address] Patient Name: MEHNAZ LOVELACE Encounter No: [id number] : 1960 Primary Insurance: MEDICAID [place] Anticipated DC Date: 02-26-2019 Planned Disposition: Nursing Facility [facility] Cert External Planned Provider: [facility], LONG TERM CARE MEDICAID BED DCP follow-up note: CM FAXED REFERRAL TO [facility] AT [phone]. CM WAITING ON ADMISSION DETERMINATION FROM [facility] FOR JAIL ANTIBIOTIC THERAPY / CARE. AMBERLY REES, CASE MANAGMENT Amberly Rees DCP- Discharge Planning Updated by [id number]: Amberly Rees on 02/24/19 3:[address] Patient Name: MEHNAZ LOVELACE Encounter No: [id number] : 1960 Primary Insurance: MEDICAID [place] Anticipated DC Date: Planned Disposition: Home DCP follow-up note: CM SPOKE TO PT IN ROOM REGARDIN DISCHARGE PLAN. PT INFORMED CM HE HAS NO FAMILY OR FRIENDS THAT WILL ASSIST HIM WITH PLACE TO STAY THAT HAS UTILITIES TO GET IV ANTIBIOTICS. PT WANTS TO GO HOME AND HAVE THEM THERE. PT HAS NO PRIMARY CARE DOCTOR. PT HAS NO CHOICE ON HOME IV INFUSION PROVIDER. CHOICE LETTER SIGNED. PT STILL DOES NOT WANT TO GO TO A [facility]CI FOR JAIL CARE; PT STATES CM CAN CHECK WITH [facility] TO SEE IF THEY WILL TAKE HIM IF HE HAS NO OTHER OPTIONS. CM CALLED AND SPOKE TO BEBA AT [facility], PT'S PREFERRED PROVIDER, WHO INFORMED CM THAT THEY WILL NOT PROVIDE SERVICES FOR IV HOME INFUSION ENVIRONMENT DESCRIBED IS NOT APPROPRIATE. CM CALLED [facility], SPOKE TO DIONE MCCRACKEN WHO INFORMED CM THAT THEY MAY BE ABLE TO TEACH PT TO DO HIS OWN IV PUSH AT HOME BUT PT WILL STILL NEED CLINIC OR OUTPATIENT FOLLOW UP FOR ANY DRESSING CHANGES AND IF THERE ARE ANY NEEDED LABS. CM NOTIFIED CHRISTIANO ZIMMERMAN TO DETERMINE IF THIS IS AN OPTION. CM CALLED JASWINDER AT [facility], , LEFT MESSAGE ASKING FOR RETURN CALL TO SEE IF [facility] WOULD CONSIDER PT FOR PLACEMENT TO DO IV ANTIBIOTICS. CM WAITING RETURN CALL FROM CHRISTIANO ZIMMERMAN TO DETERMINE IF PT MAY BE CONSIDERED TO GO HOME AND DO HIS OWN IV PUSH ANTIBIOTICS. CM WAITING RETURN CALL FROM [facility] TO DETERMINE IF THEY WILL EVEN CONSIDER PT FOR IV ANTIBIOTICS HE HAS MEDICAID INSURANCE. Amberly Rees, CASE MANAGEMENT Appended by Amberly Rees on 02/24/2019 16:18 CDT: CM SPOKE TO CHRISTIANO ZIMMERMAN AND DR. HOWARD WHO INFORMED CM THAT THEY WILL NOT SEND PT HOME FOR SELF IV PUSH OF IV ANTIBIOTICS. DR. HOWARD INFORMED CM THAT PT WILL GO TO A NURSING FACILITY OR REMAIN IN HOSPITAL FOR DURATION OF ANTIBIOTICS. CM RECEIVED MESSAGE FROM JASWINDER OF [facility], , WHO INFORMED CM THAT SHE WAS LEAVING FOR THE REMAINDER OF THE DAY. CM TO CALL BACK AND DISCUSS PT'S CONDITION AND NEEDED TREATMENT 02-25-19 TO SEE IF [facility] MAY CONSIDER PT FOR SHAKER FLATWORK IV ANTIBIOTICS ADMINISTRATION. AMBERLY REES, CASE MANAGEMENT DCP- Discharge Planning Updated by [id number]: Amberly Rees on 02/23/19 9:[address] Patient Name: MEHNAZ LOVELACE Encounter No: [id number] : 1960 Primary Insurance: MEDICAID [facility] DC Date: Planned Disposition: Home with Home Health External Planned Provider: TO BE DETERMINED DCP follow-up note: CM MET WITH PT IN ROOM, DISCUSSED PLACEMENT AT [facility] FOR IV ANTIBIOTICS. PT WAS NOT INFORMED THAT MEDICAID WOULD NOT PAY FOR SHORT TERM SKILLED PLACEMENT. CM EXPLAINED SHAKER FLATWORK CARE PLACEMENT IN NURSING HOME FACILITY. PT STATES HE DOES NOT WANT TO LOSE HIS "CHECK" AND WILL NOT GO TO A FCI. PT DOES NOT HAVE ELECTRICITY OR RUNNING WATER AT HIS HOME AND WILL "THINK ABOUT" WHO HE MAY POSSIBLY STAY WITH FOR IV ANTIBIOTICS AND HOME HEALTH. PT WILL LET CM KNOW SOON POSSIBLE WHAT HE "CAN FIND OUT." PT REFUSED SHAKER FLATWORK CARE PLACEMENT IN NURSING FACILITY. PT WORKING ON HIS PLAN TO STAY WITH A FRIEND AND WILL NOTIFY CM WHEN HE CAN FIND SOMEONE TO ALLOW HIM TO STAY FOR COURSE OF IV ANTIBIOTICS IN THEIR HOME. Amberly Rees, CASE MANAGEMENT DCP- Discharge Planning Updated by [id number]: Sybil Walker on 02/21/19 1:[address] Patient Name: MEHNAZ LOVELACE Admission Status: ER Accout number: [id number] Admission Date: 02-15-2019 : 1960 Admission Diagnosis:GASTROINTESTINAL HEMORRHAGE, UNSPECIFIED Attending: ALEXI LINDSAY Current LOS: 6 Anticipated DC Date: Planned Disposition: Primary Insurance: MEDICAID [place] Discharge Planning Comments: CM met with patient at bedside after explaining CM role and obtaining verbal consent. CM discussed availability / needs of home health and medical equipment. [facility] is current with Pietro LUCERO. [facility] doctor told him he will need 4 weeks iv antibiotics. Since he doesn't have electricity and water it is unlikely iv companies will get him meds. Patient states would like [place] [facility] for 4 weeks. natasha signed. CM will continue to Monitor. Beater And Pulper Feeder: Sybil Walker DCPIA - Discharge Planning Initial Assessment Updated by [id number]: Sybil Walker on 02/21/19 2:27 pm * Is the patient Alert and Oriented? Yes * PCP [facility] * [facility] * Preadmission Environment Home Alone * ADLs Independent * Equipment Cane * Community resources currently utilized Home Health * Please name any agencies selected above. [facility] * Additional services required to return to the preadmission environment? Yes * Can the patient safely return to the preadmission environment? Yes * Has this patient been hospitalized within the prior 30 days at any hospital? Yes Coverage Notice Reviewer: [id number] - Sybil Walker Notice Issued Date-Time: 02/21/2019 14:30 Notice Type: Patient Choice Letter Notice Delivered To: Patient Relationship to Patient: Polishing Machine Tender Name: Delivery Method: HAND - Hand Delivered Sherin Days: Prior Verbal Notification: Recipient Understood Notice: Yes Recipient Signature: Yes Med Rec Note Co-signed by Attending: Coverage Notice Comment: pietro lucero resume. [facility] [place] [facility] Reviewer: [id number] Lis Rees Notice Issued Date-Time: 02/24/2019 12:20 Notice Type: Patient Choice Letter Notice Delivered To: Patient Relationship to Patient: Polishing Machine Tender Name: Delivery Method: HAND - Hand Delivered Sherin Days: Prior Verbal Notification: Recipient Understood Notice: Yes Recipient Signature: Yes Med Rec Note Co-signed by Attending: Coverage Notice Comment: [facility] AND NO PREFERNCE ON INFUSION COMPANY Last DP export: 02/27/19 5:09 pm Patient Name: MEHNAZ LOVELACE Page [id number] at 1816 All edits/amendments must be made on the electronic document DICTATION DATE: 02/27/191814 SUPERINTENDENT WATER AND SEWER SYSTEMS: APOLINAR 02/27/191814 RPT#: [id number] DC DATE: STATUS: ADM IN [facility] [address] [place] [address] END OF REPORT
--- NOTE | 2019-02-27 19:15 | NUR ---
PATIENT HAS BEEN DISCHARGED. ALL BELONGINGS HAVE BEEN REMOVED FROM THE ROOM.HE LEFT WITH [facility] BY STRETCHER. HE IS BEING TRANSPORTED TO [facility] IN [place]. WE LEFT HIS IV IN PLACE ORDERED. TELEMETRY WAS REMOVED.
--- NOTE | 2019-03-01 07:39 | MORECARE ---
CASE MANAGEMENT DISCHARGE SUMMARY PATIENT: MEHNAZ LOVELACE JR UNIT: [id number] ADM DATE: 02/15/19 AGE: 58 : 60 SEX: M ROOM/BED: D.1071 AUTHOR: JULES,DOC PHYSICIAN: REFERRING PHYSICIAN: ALEXI LINDSAY MD DATE OF SERVICE: 03/01/19 Discharge Plan Patient Name: MEHNAZ LOVELACE Facility: [facility]:[place] : 1960 Planned Disposition: Acute Care Hospital Anticipated Discharge Date: 02/27/19 Discharge Date: 02/27/2019 Expected LOS: 12 Initial Reviewer: [id number] Initial Review Date: 02/21/2019 Generated: 03/01/19 8:39 am Comments DCP- Discharge Planning Updated by [id number]: Christiana Reynoso on 02/27/19 5:[address] PATIENT HAS BEEN ACCEPTED BY DR BILLS AT [facility] IN [place], [place]. HE HAS BEEN ASSIGNED TO [facility]. TRANSFERED DUE TO SPECIALTY SERVICE NOT AVAILABLE AT [facility]/ ID AWAITING [facility] FOR AMBULANCE TRANSPORT. DCP- Discharge Planning Updated by [id number]: Amberly Wiseman on 02/26/19 6:[address] Patient Name: MEHNAZ LOVELACE Encounter No: [id number] : 1960 Primary Insurance: MEDICAID [place] Anticipated DC Date: 02-26-2019 Planned Disposition: Acute Care Hospital External Planned Provider: [facility] DCP follow-up note: CM SPOKE TO JASWINDER [facility]IN[facility], THEY WILL NOT ACCEPT PT. CM SPOKE TO RN RAY VILLA WHO ADVISED THAT PHYSICIAN IS NOW IN PROCESS OF TRANSFER. CM SPOKE TO PT IN ROOM WHO IS WILLING FOR TRANSFER FOR HIGHER LEVEL OF CARE. CM SPOKE TO RN ASSOCIATE DIRECTOR OF DEVELOPMENT WHO ADVISED THAT [facility] HAS ACCEPTED AND WE ARE WAITING BED AVAILABILITY. CM TO FOLLOW AND ASSIST NEEDED. WAITING BED AVAILAILITY AT [facility] FOR HOSPITAL TRANSFER. Amberly Wiseman, CASE MANAGEMENT DCP- Discharge Planning Updated by [id number]: Deepthi Espitia on 02/25/19 11:[address] @ 1133 RECEIVED A CALL FROM CRISTINA ZIMMERMAN APN. PER DR CARBAJAL'S NOTE, "This case requires a higher level of care. I would recommend transfer to a neurosurgery or ortho spine service at a [facility]." AT HER REQUEST I WILL WORK ON A TRANSFER. DR HOWARD HAS STATED HE WOULD DO THE DOC TO DOC AND GAVE ME HIS CELL NUMBER. @4498, I OBTAINED ADMINISTRATION AUTH FOR TRANSFER FROM [facility]EN [facility] THROUGH [facility]. @8157, PLACED A CALL TO THE TRANSFER CENTER, AND SPOKE WITH SABI. ALL DETAILS GIVEN. FACESHEET FAXED TO [phone]. WILL WAIT FOR CALL BACK. ALL IMAGING HAS BEEN BURNED TO A DISK AND ARE IN TRANSFER FOLDER. DCP- Discharge Planning Updated by [id number]: Amberly Wiseman on 02/25/19 7:[address] Patient Name: MEHNAZ LOVELACE Encounter No: [id number] : 1960 Primary Insurance: MEDICAID [place] Anticipated DC Date: 02-26-2019 Planned Disposition: Nursing Facility [facility] Cert External Planned Provider: [facility], LONG TERM CARE MEDICAID BED DCP follow-up note: CM FAXED REFERRAL TO JUD[facility] AT [phone]. CM WAITING ON ADMISSION DETERMINATION FROM [facility] FOR DOCK PUMPER ANTIBIOTIC THERAPY / CARE. AMBERLY WISEMAN, CASE MANAGMENT Amberly Wiseman DCP- Discharge Planning Updated by [id number]: Amberly Wiseman on 02/24/19 3:[address] Patient Name: MEHNAZ LOVELACE Encounter No: [id number] : 1960 Primary Insurance: MEDICAID [place] Anticipated DC Date: Planned Disposition: Home DCP follow-up note: CM SPOKE TO PT IN ROOM REGARDIN DISCHARGE PLAN. PT INFORMED CM HE HAS NO FAMILY OR FRIENDS THAT WILL ASSIST HIM WITH PLACE TO STAY THAT HAS UTILITIES TO GET IV ANTIBIOTICS. PT WANTS TO GO HOME AND HAVE THEM THERE. PT HAS NO PRIMARY CARE DOCTOR. PT HAS NO CHOICE ON HOME IV INFUSION PROVIDER. CHOICE LETTER SIGNED. PT STILL DOES NOT WANT TO GO TO A PRISON FOR DOCK PUMPER CARE; PT STATES CM CAN CHECK WITH [facility] TO SEE IF THEY WILL TAKE HIM IF HE HAS NO OTHER OPTIONS. CM CALLED AND SPOKE TO BEBA AT [facility], PT'S PREFERRED PROVIDER, WHO INFORMED CM THAT THEY WILL NOT PROVIDE SERVICES FOR IV HOME INFUSION ENVIRONMENT DESCRIBED IS NOT APPROPRIATE. CM CALLED [facility], SPOKE TO DIONE MCCRACKEN WHO INFORMED CM THAT THEY MAY BE ABLE TO TEACH PT TO DO HIS OWN IV PUSH AT HOME BUT PT WILL STILL NEED CLINIC OR OUTPATIENT FOLLOW UP FOR ANY DRESSING CHANGES AND IF THERE ARE ANY NEEDED LABS. CM NOTIFIED CHRISTIANO ZIMMERMAN TO DETERMINE IF THIS IS AN OPTION. CM CALLED JASWINDER AT [facility], , LEFT MESSAGE ASKING FOR RETURN CALL TO SEE IF [facility] WOULD CONSIDER PT FOR PLACEMENT TO DO IV ANTIBIOTICS. CM WAITING RETURN CALL FROM CHRISTIANO ZIMMERMAN TO DETERMINE IF PT MAY BE CONSIDERED TO GO HOME AND DO HIS OWN IV PUSH ANTIBIOTICS. CM WAITING RETURN CALL FROM [facility] TO DETERMINE IF THEY WILL EVEN CONSIDER PT FOR IV ANTIBIOTICS HE HAS MEDICAID INSURANCE. Amberly Wiseman, CASE MANAGEMENT Appended by Amberly Wiseman on 02/24/2019 16:18 CDT: CM SPOKE TO CHRISTIANO ZIMMERMAN AND DR. HOWARD WHO INFORMED CM THAT THEY WILL NOT SEND PT HOME FOR SELF IV PUSH OF IV ANTIBIOTICS. DR. HOWARD INFORMED CM THAT PT WILL GO TO A NURSING FACILITY OR REMAIN IN HOSPITAL FOR DURATION OF ANTIBIOTICS. CM RECEIVED MESSAGE FROM JASWINDER OF [facility], , WHO INFORMED CM THAT SHE WAS LEAVING FOR THE REMAINDER OF THE DAY. CM TO CALL BACK AND DISCUSS PT'S CONDITION AND NEEDED TREATMENT 02-25-19 TO SEE IF [facility] MAY CONSIDER PT FOR DOCK PUMPER IV ANTIBIOTICS ADMINISTRATION. AMBERLY WISEMAN, CASE MANAGEMENT DCP- Discharge Planning Updated by [id number]: Amberly Wiseman on 02/23/19 9:[address] Patient Name: MEHNAZ LOVELACE Encounter No: [id number] : 1960 Primary Insurance: MEDICAID [facility] DC Date: Planned Disposition: Home with Home Health External Planned Provider: TO BE DETERMINED DCP follow-up note: CM MET WITH PT IN ROOM, DISCUSSED PLACEMENT AT [facility] FOR IV ANTIBIOTICS. PT WAS NOT INFORMED THAT MEDICAID WOULD NOT PAY FOR SHORT TERM SKILLED PLACEMENT. CM EXPLAINED DOCK PUMPER CARE PLACEMENT IN [facility] FACILITY. PT STATES HE DOES NOT WANT TO LOSE HIS "CHECK" AND WILL NOT GO TO A PRISON. PT DOES NOT HAVE ELECTRICITY OR RUNNING WATER AT HIS HOME AND WILL "THINK ABOUT" WHO HE MAY POSSIBLY STAY WITH FOR IV ANTIBIOTICS AND HOME HEALTH. PT WILL LET CM KNOW SOON POSSIBLE WHAT HE "CAN FIND OUT." PT REFUSED DOCK PUMPER CARE PLACEMENT IN NURSING FACILITY. PT WORKING ON HIS PLAN TO STAY WITH A FRIEND AND WILL NOTIFY CM WHEN HE CAN FIND SOMEONE TO ALLOW HIM TO STAY FOR COURSE OF IV ANTIBIOTICS IN THEIR HOME. Amberly Wiseman, CASE MANAGEMENT DCP- Discharge Planning Updated by [id number]: Sybil Walker on 02/21/19 1:[address] Patient Name: MEHNAZ LOVELACE Admission Status: ER Accout number: [id number] Admission Date: 02-15-2019 : 1960 Admission Diagnosis:GASTROINTESTINAL HEMORRHAGE, UNSPECIFIED Attending: ALEXI LINDSAY Current LOS: 6 Anticipated DC Date: Planned Disposition: Primary Insurance: MEDICAID [place] Discharge Planning Comments: CM met with patient at bedside after explaining CM role and obtaining verbal consent. CM discussed availability / needs of home health and medical equipment. is current with [facility]. [facility] doctor told him he will need 4 weeks iv antibiotics. Since he doesn't have electricity and water it is unlikely iv companies will get him meds. Patient states would like [facility] for [facility]. natasha signed. CM will continue to Monitor. Experimental Box Tester: Sybil Walker DCPIA - Discharge Planning Initial Assessment Updated by [id number]: Sybil Walker on 02/21/19 2:27 pm * Is the patient Alert and Oriented? Yes * PCP [facility] * [facility] * Preadmission Environment Home Alone * ADLs Independent * Equipment Cane * Community resources currently utilized Home Health * Please name any agencies selected above. [facility] * Additional services required to return to the preadmission environment? Yes * Can the patient safely return to the preadmission environment? Yes * Has this patient been hospitalized within the prior 30 days at any hospital? Yes Coverage Notice Reviewer: [id number] - Sybil Walker Notice Issued Date-Time: 02/21/2019 14:30 Notice Type: Patient Choice Letter Notice Delivered To: Patient Relationship to Patient: Crusher Operator Name: Delivery Method: HAND - Hand Delivered Sherin Days: Prior Verbal Notification: Recipient Understood Notice: Yes Recipient Signature: Yes Med Rec Note Co-signed by Attending: Coverage Notice Comment: [facility]. [facility] Reviewer: [id number] - Amberly Wiseman Notice Issued Date-Time: 02/24/2019 12:20 Notice Type: Patient Choice Letter Notice Delivered To: Patient Relationship to Patient: Crusher Operator Name: Delivery Method: HAND - Hand Delivered Sherin Days: Prior Verbal Notification: Recipient Understood Notice: Yes Recipient Signature: Yes Med Rec Note Co-signed by Attending: Coverage Notice Comment: [facility] AND NO PREFERNCE ON INFUSION COMPANY Last DP export: 02/27/19 5:16 pm Patient Name: MEHNAZ LOVELACE Page [id number] at 0739 All edits/amendments must be made on the electronic document DICTATION DATE: 03/01/19738 LOAN SECRETARY: APOLINAR 03/01/19738 RPT#: [id number] DC DATE:02/27/19 STATUS: DIS IN [facility] [address] [place] [address] END OF REPORT
== END 2019-02-27 19:18 | disposition short-term general hospital (02) | DRG 377 ==
LOC: D.ER 20:09 → D.M2 23:55
PROVIDERS: Family Medicine; Family Medicine Adult Medicine; Internal Medicine Gastroenterology; ADMIT Internal Medicine Nephrology; ATTEND Internal Medicine Nephrology
PROC: 0DB68ZX Excision of Stomach, Via Natural or Artificial Opening Endoscopic, Diagnostic (ICD-10-PCS; principal; 2019-02-17 16:00)
PROC: 0HBRXZZ Excision of Toe Nail, External Approach (ICD-10-PCS; 2019-02-23)
DX: K29.01 Acute gastritis with bleeding (principal); E43 Unspecified severe protein-calorie malnutrition; A41.02 Sepsis due to Methicillin resistant Staphylococcus aureus; Z68.1 Body mass index [BMI] 19.9 or less, adult; D62 Acute posthemorrhagic anemia; F17.213 Nicotine dependence, cigarettes, with withdrawal; M46.27 Osteomyelitis of vertebra, lumbosacral region; R55 Syncope and collapse; I10 Essential (primary) hypertension; K21.0 Gastro-esophageal reflux disease with esophagitis; T39.395A Adverse effect of other nonsteroidal anti-inflammatory drugs [NSAID], initial encounter; M46.40 Discitis, unspecified, site unspecified